=== PATIENT | male | born 1990 | race American Indian/Alaskan Native ===

== ENCOUNTER 2018-08-27 23:23 | Emergency (ER) | payer SELFPAY ==
[2018-08-27 23:29] VITALS: BP 136/86
--- NOTE | 2018-08-28 00:04 | XRay Report ---
LEFT TIBIA-FIBULA 4 VIEWS INDICATION / CLINICAL INFORMATION: Left greer pain for one week. No known injury. COMPARISON: None available. FINDINGS: BONES and JOINT(S): No acute fracture or subluxation. No significant arthritis. SOFT TISSUES: No significant abnormality. ADDITIONAL FINDINGS: None. IMPRESSION: No acute findings. Signer Name: Willian Angulo MD Signed: 08/28/2018 12:00 AM Workstation Name: [id number]
[2018-08-28] MEDS ORDERED: ULTRAM PO ONE (00:25)
--- NOTE | 2018-08-28 00:59 | Emergency Department Report ---
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 pt remains ambulatory to base line per patient, pain is 5/10 exacerbated by prolonged standing walking Complaint: leg injury Onset/Timin -: week(s) Injury: Leg: Left Type of Injury: unknown Place: work Severity: moderate Severity scale (0 -10): 5 Improves With: nothing Worsens With: weight bearing, movement, palpation Associated Symptoms: swelling, ambulatory - Related Data Previous Rx's Medication Instructions Recorded Last Taken Type Amoxicillin 500 mg PO BID #20 capsule 02/05/18 Unknown Rx predniSONE [Deltasone] 20 mg PO DAILY #5 tablet 02/05/18 Unknown Rx Naproxen [Naprosyn] 500 mg PO BID PRN #30 tablet 08/28/18 Unknown Rx Allergies Allergy/AdvReac Type Severity Reaction Status Date / Time blueberry [Blueberry] Allergy Hives Verified 01/02/13 13:21 mushroom Allergy Hives Verified 02/05/18 12:55 pineapple [Pineapple] Allergy Hives Verified 01/02/13 13:21 raspberry [Raspberry] Allergy Hives Verified 01/02/13 13:21 ED Review of Systems ROS: Stated complaint: LT LEG PAIN Other details as noted in HPI Constitutional: denies: chills, fever Eyes: denies: eye pain, eye discharge, vision change ENT: denies: ear pain, throat pain Respiratory: denies: cough, shortness of breath, wheezing Cardiovascular: denies: chest pain, palpitations Endocrine: no symptoms reported Gastrointestinal: denies: abdominal pain, nausea, diarrhea Genitourinary: denies: urgency, dysuria Musculoskeletal: other (LLE pain ) Skin: denies: rash, lesions Neurological: denies: headache, weakness, paresthesias Psychiatric: denies: anxiety, depression Hematological/Lymphatic: denies: easy bleeding, easy bruising ED Past Medical Hx - Past Medical History Previous Medical History?: Yes Hx Hypertension: No Hx CVA: No Hx Heart Attack/AMI: No Hx Congestive Heart Failure: No Hx Diabetes: No Hx Deep Vein Thrombosis: No Hx Pulmonary Embolism: No Hx GERD: No Hx Liver Disease: No Hx Renal Disease: No Hx Sickle Cell Disease: No Hx Arthritis: No Hx Headaches / Migraines: No Hx Seizures: No Hx Kidney Stones: No Hx Psychiatric Treatment: No Hx Asthma: Yes Hx COPD: No Hx Tuberculosis: No Hx Dementia: No Hx HIV: No Additional medical history: Sinus Infections - Surgical History Past Surgical History?: No Hx Coronary Stent: No Hx Open Heart Surgery: No Hx Pacemaker: No Hx Internal Defibrillator: No Hx Cholecystectomy: No Hx Appendectomy: No Hx Breast Surgery: No - Social History Smoking Status: Current Every Day Smoker Substance Use Type: Alcohol - Medications Home Medications: Home Medications Medication Instructions Recorded Confirmed Last Taken Type Amoxicillin 500 mg PO BID #20 capsule 02/05/18 Unknown Rx predniSONE [Deltasone] 20 mg PO DAILY #5 tablet 02/05/18 Unknown Rx Naproxen [Naprosyn] 500 mg PO BID PRN #30 tablet 08/28/18 Unknown Rx ED Physical Exam - General Limitations: No Limitations General appearance: alert, in no apparent distress - Head Head exam: Present: atraumatic, normocephalic - Eye Eye exam: Present: normal appearance, PERRL, EOMI Pupils: Present: normal accommodation - ENT ENT exam: Present: normal orophraynx, mucous membranes moist, TM's normal bilaterally, normal external ear exam - Neck Neck exam: Present: normal inspection, full ROM, lymphadenopathy. Absent: tenderness, meningismus - Respiratory Respiratory exam: Present: normal lung sounds bilaterally. Absent: respiratory distress, wheezes - Cardiovascular Cardiovascular Exam: Present: regular rate, normal rhythm, normal heart sounds. Absent: systolic murmur, diastolic murmur, rubs, gallop - GI/Abdominal GI/Abdominal exam: Present: soft, normal bowel sounds. Absent: distended, tenderness, bruit, hernia - Rectal Rectal exam: Present: deferred - Extremities Exam Extremities exam: Present: normal inspection, full ROM, tenderness (left lateral anterior tib fib tenderness midshaft ), normal capillary refill. Absent: pedal edema, joint swelling, calf tenderness - Expanded Lower Extremity Exam Left Lower Leg exam: Present: tenderness. Absent: swelling, abrasion, laceration, ecchymosis, deformity, crepidus, dislocation, erythema, palpable cord, Precious's sign Ankle exam: Present: normal inspection, full ROM. Absent: tenderness Foot/Toe exam: Present: normal inspection, full ROM. Absent: tenderness Neuro vascular tendon exam: Absent: pulse deficit, motor deficit, sensory deficit, tendon deficit Gait: Positive: observed and normal - Back Exam Back exam: Present: normal inspection, full ROM. Absent: tenderness, CVA tenderness (R), CVA tenderness (L), muscle spasm, paraspinal tenderness, vertebral tenderness, rash noted - Neurological Exam Neurological exam: Present: alert, oriented X3, CN II-XII intact, normal gait, reflexes normal. Absent: motor sensory deficit - Psychiatric Psychiatric exam: Present: normal affect, normal mood - Skin Skin exam: Present: warm, dry, intact, normal color. Absent: rash ED Course Vital Signs 08/27/18 23:23 Temperature 98 F Pulse Rate 90 Respiratory 18 Rate Blood Pressure 136/86 O2 Sat by Pulse 97 Oximetry ED Lower Extremity MDM - Radiology Data Radiology results: report reviewed, image reviewed normal xray no fracture or soft tissue abnormality - Medical Decision Making this is musculoskeletal pain no abrasion swelling or deformity rom intact no calf tenderness rom intact plan : nsaids , analgesic balm rice therapy follow up wtih pcp in 2-3 days return to ed if symptoms worsen, pt verbalized agreement and understanding with discharge plan will dc to home in stable condition at this time. Critical care attestation.: If time is entered above; I have spent that time in minutes in the direct care of this critically ill patient, excluding procedure time. ED Disposition Clinical Impression: Muscle strain, lower leg Qualifiers: Encounter type: initial encounter Laterality: left Qualified Code(s): S86.912A - Strain of unspecified muscle(s) and tendon(s) at lower leg level, left leg, initial encounter Disposition: DC-01 TO HOME OR SELFCARE Is pt being admited?: No Does the pt Need Aspirin: No Condition: Stable Instructions: Muscle Strain (ED) Prescriptions: Naproxen [Naprosyn] 500 mg PO BID PRN #30 tablet PRN Reason: Pain , Severe (7-10) Referrals: PRIMARY CARE,MD [Primary Care Provider] - 3-5 Days Forms: Work/School Release Form(ED) Time of Disposition: 01:07
== END 2018-08-28 01:15 | disposition home or self-care (01) ==
LOC: ED 23:23
DX: S86.912A Strain of unspecified muscle(s) and tendon(s) at lower leg level, left leg, initial encounter (principal); J45.909 Unspecified asthma, uncomplicated; Z91.018 Allergy to other foods; X50.1XXA Overexertion from prolonged static or awkward postures, initial encounter; Y93.89 Activity, other specified; Y92.89 Other specified places as the place of occurrence of the external cause; Y99.8 Other external cause status
CPT/HCPCS: 99283

== ENCOUNTER 2018-10-30 21:22 | Emergency (ER) | payer SELFPAY ==
[2018-10-30 22:08] VITALS: BP 126/86
--- NOTE | 2018-10-30 22:08 | Event Note ---
ED Screening Note Date of service: 10/30/18 Time: 22:06 ED Screening Note: 28 old male presents with right knee pain and swelling x 2 days states hx of abscess/cellulitis no fever This initial assessment/diagnostic orders/clinical plan/treatment(s) is/are subject to change based on patients health status, clinical progression and re- assessment by fellow clinical providers in the ED. Further treatment and workup at subsequent clinical providers discretion. Patient/guardian urged not to elope from the ED as their condition may be serious if not clinically assessed and managed. Initial orders include: acc eval I&D?
--- NOTE | 2018-10-30 23:10 | Emergency Department Report ---
- General Chief complaint: Skin/Abscess/Foreign Body Stated complaint: KNOT ON KNEE Time Seen by Provider: 10/30/18 22:05 Source: patient Mode of arrival: Ambulatory Limitations: No Limitations - History of Present Illness Initial comments: Patient is a 28-year-old male who presents to emergency room with complaints of a lump on his right knee that began this morning. The patient states he has associated redness, pain. He states he saw a very small amount of pus. He denies any fever, chills, nausea, vomiting, any other symptoms. He is ambulatory without difficulty. He states he has a past medical history of staph infection. he denies any allergies to meds. - Related Data Previous Rx's Medication Instructions Recorded Last Taken Type Amoxicillin 500 mg PO BID #20 capsule 02/05/18 Unknown Rx predniSONE [Deltasone] 20 mg PO DAILY #5 tablet 02/05/18 Unknown Rx Naproxen [Naprosyn] 500 mg PO BID PRN #30 tablet 08/28/18 Unknown Rx Acetaminophen/Codeine [Tylenol 1 tab PO Q6H PRN #7 tab 10/30/18 Unknown Rx /Codeine # 3 tab] Ibuprofen [Motrin 600 MG tab] 600 mg PO Q8H PRN #14 tablet 10/30/18 Unknown Rx Sulfamethoxazole/Trimethoprim 1 each PO BID 7 Days #14 tablet 10/30/18 Unknown Rx [Bactrim DS TAB] Allergies Allergy/AdvReac Type Severity Reaction Status Date / Time blueberry [Blueberry] Allergy Hives Verified 01/02/13 13:21 mushroom Allergy Hives Verified 02/05/18 12:55 pineapple [Pineapple] Allergy Hives Verified 01/02/13 13:21 raspberry [Raspberry] Allergy Hives Verified 01/02/13 13:21 Abscess Boil HPI - HPI Chief Complaint: Skin/Abscess/Foreign Body Stated Complaint: KNOT ON KNEE Time Seen by Provider: 10/30/18 22:05 Home Medications: Previous Rx's Medication Instructions Recorded Last Taken Type Amoxicillin 500 mg PO BID #20 capsule 02/05/18 Unknown Rx predniSONE [Deltasone] 20 mg PO DAILY #5 tablet 02/05/18 Unknown Rx Naproxen [Naprosyn] 500 mg PO BID PRN #30 tablet 08/28/18 Unknown Rx Acetaminophen/Codeine [Tylenol 1 tab PO Q6H PRN #7 tab 10/30/18 Unknown Rx /Codeine # 3 tab] Ibuprofen [Motrin 600 MG tab] 600 mg PO Q8H PRN #14 tablet 10/30/18 Unknown Rx Sulfamethoxazole/Trimethoprim 1 each PO BID 7 Days #14 tablet 10/30/18 Unknown Rx [Bactrim DS TAB] Allergies/Adverse Reactions: Allergies Allergy/AdvReac Type Severity Reaction Status Date / Time blueberry [Blueberry] Allergy Hives Verified 01/02/13 13:21 mushroom Allergy Hives Verified 02/05/18 12:55 pineapple [Pineapple] Allergy Hives Verified 01/02/13 13:21 raspberry [Raspberry] Allergy Hives Verified 01/02/13 13:21 ED Review of Systems ROS: Stated complaint: KNOT ON KNEE Other details as noted in HPI Comment: All other systems reviewed and negative ED Past Medical Hx - Past Medical History Previous Medical History?: Yes Hx Hypertension: No Hx CVA: No Hx Heart Attack/AMI: No Hx Congestive Heart Failure: No Hx Diabetes: No Hx Deep Vein Thrombosis: No Hx Pulmonary Embolism: No Hx GERD: No Hx Liver Disease: No Hx Renal Disease: No Hx Sickle Cell Disease: No Hx Arthritis: No Hx Headaches / Migraines: No Hx Seizures: No Hx Kidney Stones: No Hx Psychiatric Treatment: No Hx Asthma: Yes Hx COPD: No Hx Tuberculosis: No Hx Dementia: No Hx HIV: No Additional medical history: Sinus Infections - Surgical History Hx Coronary Stent: No Hx Open Heart Surgery: No Hx Pacemaker: No Hx Internal Defibrillator: No Hx Cholecystectomy: No Hx Appendectomy: No Hx Breast Surgery: No - Social History Smoking Status: Current Every Day Smoker Substance Use Type: None - Medications Home Medications: Home Medications Medication Instructions Recorded Confirmed Last Taken Type Amoxicillin 500 mg PO BID #20 capsule 02/05/18 Unknown Rx predniSONE [Deltasone] 20 mg PO DAILY #5 tablet 02/05/18 Unknown Rx Naproxen [Naprosyn] 500 mg PO BID PRN #30 tablet 08/28/18 Unknown Rx Acetaminophen/Codeine [Tylenol 1 tab PO Q6H PRN #7 tab 10/30/18 Unknown Rx /Codeine # 3 tab] Ibuprofen [Motrin 600 MG tab] 600 mg PO Q8H PRN #14 tablet 10/30/18 Unknown Rx Sulfamethoxazole/Trimethoprim 1 each PO BID 7 Days #14 tablet 10/30/18 Unknown Rx [Bactrim DS TAB] ED Physical Exam - General Limitations: No Limitations General appearance: alert, in no apparent distress - Head Head exam: Present: atraumatic, normocephalic - Eye Eye exam: Present: normal appearance - ENT ENT exam: Present: mucous membranes moist - Neurological Exam Neurological exam: Present: alert, oriented X3 - Psychiatric Psychiatric exam: Present: normal affect, normal mood - Skin Skin exam: Present: warm, dry, other (2 cm area of induration, erythema, and mi ld increased warmth, no fluctuance, no drainage, no drainage expressed with manual expression, FROM of the right knee without difficulty, no involvement of the knee, 2+ distal pulses, sensation intact) ED Course Vital Signs 10/30/18 22:06 Temperature 98.3 F Pulse Rate 90 Respiratory 18 Rate Blood Pressure 126/86 O2 Sat by Pulse 98 Oximetry ED Medical Decision Making - Medical Decision Making Patient is a 28-year-old male who presents to emergency room with complaints of a lump on his right knee that began this morning. The patient states he has associated redness, pain. He states he saw a very small amount of pus. He denies any fever, chills, nausea, vomiting, any other symptoms. He is ambulatory without difficulty. He states he has a past medical history of staph infection. he denies any allergies to meds. vitals are normal. on exam: 2 cm area of induration, erythema, and mild increased warmth, no fluctuance, no drainage, no drainage expressed with manual expression, FROM of the right knee without difficulty, no involvement of the knee, 2+ distal pulses, sensation intact. no drainable abscess at this time. Will place patient on Bactrim. Advised patient that if antibiotic is not working and it was getting worse then he would need to return to the emergency room to have an I&D performed. Discussed the patient to please take medication as prescribed. Do not drive or operate heavy machinery while taking pain medication. Use warm compresses 3 times a day. Follow up with a primary care doctor in the next 2-3 days for reevaluation. Return to the emergency room for any new or worsening symptoms or worsening signs of infection despite antibiotic therapy. - Differential Diagnosis cellulitis, abscess Critical care attestation.: If time is entered above; I have spent that time in minutes in the direct care of this critically ill patient, excluding procedure time. ED Disposition Clinical Impression: Cellulitis Qualifiers: Site of cellulitis: extremity Site of cellulitis of extremity: lower extremity Laterality: right Qualified Code(s): L03.115 - Cellulitis of right lower limb Disposition: - TO HOME OR SELFCARE Is pt being admited?: No Does the pt Need Aspirin: No Condition: Stable Instructions: Cellulitis (ED) Additional Instructions: please take medication as prescribed. Do not drive or operate heavy machinery while taking pain medication. Use warm compresses 3 times a day. Follow up with a primary care doctor in the next 2-3 days for reevaluation. Return to the emergency room for any new or worsening symptoms or worsening signs of infection despite antibiotic therapy. Prescriptions: Sulfamethoxazole/Trimethoprim [Bactrim DS TAB] 1 each PO BID 7 Days #14 tablet Ibuprofen [Motrin 600 MG tab] 600 mg PO Q8H PRN #14 tablet PRN Reason: Pain, Moderate (4-6) Acetaminophen/Codeine [Tylenol /Codeine # 3 tab] 1 tab PO Q6H PRN #7 tab PRN Reason: Pain , Severe (7-10) Referrals: [facility] [Provider Group] - 2-3 Days Time of Disposition: 23:19 Print Language: SINHALA
== END 2018-10-30 23:40 | disposition home or self-care (01) ==
LOC: ED 21:22
DX: L03.115 Cellulitis of right lower limb (principal); J45.909 Unspecified asthma, uncomplicated; F17.200 Nicotine dependence, unspecified, uncomplicated; Z91.018 Allergy to other foods
CPT/HCPCS: 99282

== ENCOUNTER 2018-11-04 18:27 | Emergency (ER) | payer SELFPAY ==
[2018-11-04 20:24] VITALS: BP 129/87
--- NOTE | 2018-11-04 20:27 | Event Note ---
ED Screening Note Date of service: 11/04/18 Time: 20:20 ED Screening Note: This initial assessment/diagnostic orders/clinical plan/treatment(s) is/are subject to change based on patients health status, clinical progression and re- assessment by fellow clinical providers in the ED. Further treatment and workup at subsequent clinical providers discretion. Patient/guardian urged not to elope from the ED as their condition may be serious if not clinically assessed and managed. Initial orders include:
--- NOTE | 2018-11-04 20:32 | Emergency Department Report ---
Abscess Boil HPI - HPI Chief Complaint: Extremity Problem,Nontraumatic Stated Complaint: RT KNEE HOLE/PAIN Time Seen by Provider: 11/04/18 20:20 Duration: 4 Days Location: Lower Extremity (right) Severity: Mild History: Yes Pain, Yes Purulent Drainage, No Fever, No Numbness, No Foreign Body, No Previous History, No Insect Bite HPI: This is a 28-year-old M. that presents to the ER with an abscess to right knee pain for 4 days. Patient states he was seen here last and placed on antibiotics. Reports drainage started today. Reports pain and increased drainage. Denies redness, Home Medications: Previous Rx's Medication Instructions Recorded Last Taken Type Amoxicillin 500 mg PO BID #20 capsule 02/05/18 Unknown Rx predniSONE [Deltasone] 20 mg PO DAILY #5 tablet 02/05/18 Unknown Rx Naproxen [Naprosyn] 500 mg PO BID PRN #30 tablet 08/28/18 Unknown Rx Acetaminophen/Codeine [Tylenol 1 tab PO Q6H PRN #7 tab 10/30/18 Unknown Rx /Codeine # 3 tab] Ibuprofen [Motrin 600 MG tab] 600 mg PO Q8H PRN #14 tablet 10/30/18 Unknown Rx Sulfamethoxazole/Trimethoprim 1 each PO BID 7 Days #14 tablet 10/30/18 Unknown Rx [Bactrim DS TAB] Ibuprofen [Motrin 800 MG tab] 800 mg PO Q8HR PRN #15 tablet 11/04/18 Unknown Rx Allergies/Adverse Reactions: Allergies Allergy/AdvReac Type Severity Reaction Status Date / Time blueberry [Blueberry] Allergy Hives Verified 01/02/13 13:21 mushroom Allergy Hives Verified 02/05/18 12:55 pineapple [Pineapple] Allergy Hives Verified 01/02/13 13:21 raspberry [Raspberry] Allergy Hives Verified 01/02/13 13:21 ED Review of Systems ROS: Stated complaint: RT KNEE HOLE/PAIN Other details as noted in HPI Constitutional: denies: chills, fever Respiratory: denies: cough, shortness of breath, wheezing Cardiovascular: denies: chest pain, palpitations Gastrointestinal: denies: abdominal pain, nausea, diarrhea Skin: lesions (bump on right knee, painful and draining). denies: rash Neurological: denies: headache, weakness, paresthesias Psychiatric: denies: anxiety, depression ED Past Medical Hx - Past Medical History Previous Medical History?: Yes Hx Hypertension: No Hx CVA: No Hx Heart Attack/AMI: No Hx Congestive Heart Failure: No Hx Diabetes: No Hx Deep Vein Thrombosis: No Hx Pulmonary Embolism: No Hx GERD: No Hx Liver Disease: No Hx Renal Disease: No Hx Sickle Cell Disease: No Hx Arthritis: No Hx Headaches / Migraines: No Hx Seizures: No Hx Kidney Stones: No Hx Psychiatric Treatment: No Hx Asthma: Yes Hx COPD: No Hx Tuberculosis: No Hx Dementia: No Hx HIV: No Additional medical history: Sinus Infections - Surgical History Past Surgical History?: No Hx Coronary Stent: No Hx Open Heart Surgery: No Hx Pacemaker: No Hx Internal Defibrillator: No Hx Cholecystectomy: No Hx Appendectomy: No Hx Breast Surgery: No - Social History Smoking Status: Never Smoker Substance Use Type: None - Medications Home Medications: Home Medications Medication Instructions Recorded Confirmed Last Taken Type Amoxicillin 500 mg PO BID #20 capsule 02/05/18 Unknown Rx predniSONE [Deltasone] 20 mg PO DAILY #5 tablet 02/05/18 Unknown Rx Naproxen [Naprosyn] 500 mg PO BID PRN #30 tablet 08/28/18 Unknown Rx Acetaminophen/Codeine [Tylenol 1 tab PO Q6H PRN #7 tab 10/30/18 Unknown Rx /Codeine # 3 tab] Ibuprofen [Motrin 600 MG tab] 600 mg PO Q8H PRN #14 tablet 10/30/18 Unknown Rx Sulfamethoxazole/Trimethoprim 1 each PO BID 7 Days #14 tablet 10/30/18 Unknown Rx [Bactrim DS TAB] Ibuprofen [Motrin 800 MG tab] 800 mg PO Q8HR PRN #15 tablet 11/04/18 Unknown Rx ED Abscess Boil Physical Exam - Exam General: Vital signs noted. No distress. Alert and acting appropriately. Front/Back of Body, Lg (Color): 1 - 1 cm indurated area, purulent drainage, tenderness, no surrounding cellulitis Size: 1 cm Exam: Yes Tenderness, Yes Normal Neurologic Exam, Yes Normal Circulation, No Fluctuance, No Surrounding Cellulites/Erythema, No Lymphangitis, No Crepitation, No Heart Murmur ED Course Vital Signs 11/04/18 20:23 Temperature 98.1 F Pulse Rate 86 Respiratory 18 Rate Blood Pressure 129/87 O2 Sat by Pulse 99 Oximetry Critical care attestation.: If time is entered above; I have spent that time in minutes in the direct care of this critically ill patient, excluding procedure time. ED Medical Decision Making - Medical Decision Making Patient is stable and examined by me. No history of prior abscess. Physical assessment of 2 cm erythematous indurated area to the right patella with purulent drainage. No acute signs of distress noted. Given NSAIDs while in the ER. At this time I&D not indicated. Instructed to continue current antibiotics prescribed on prior visit. Start ibuprofen for pain. Educated patient and spouse on follow up plan to have wound reassessed in 2-3 days with a primary care doctor. Patient agrees to ED plan of care. Discharged home and follow up with PCP in 2-3 days. ED Disposition Clinical Impression: Abscess Disposition: - TO HOME OR SELFCARE Is pt being admited?: No Does the pt Need Aspirin: No Condition: Stable Instructions: Abscess (ED) Additional Instructions: Complete antibiotics prescribed on last visit and continue taking current pain medication. Clean wound with soap and water. Do not drive or operate heavy machinery while taking pain medication. Drainage will resolve in 3-4 days as wound begin to close. Follow up with a primary care doctor in the next 3-4 days for wound reevaluation. Return to the ER if worsening symptoms. Prescriptions: Ibuprofen [Motrin 800 MG tab] 800 mg PO Q8HR PRN #15 tablet PRN Reason: Pain , Severe (7-10) Referrals: [facility] [Outside] - 3-5 Days [facility] [Outside] - 3-5 Days [facility] [Outside] - 3-5 Days Forms: Work/School Release Form(ED) Time of Disposition: 21:38
== END 2018-11-04 21:47 | disposition home or self-care (01) ==
LOC: ED 18:27
DX: L02.415 Cutaneous abscess of right lower limb (principal); Z91.018 Allergy to other foods
CPT/HCPCS: 99282

== ENCOUNTER 2018-12-07 12:15 | Observation (INO) | payer OTHER ==
--- NOTE | 2018-12-07 12:35 | Event Note ---
ED Screening Note Date of service: 12/07/18 Time: 12:33 ED Screening Note: This is a 28 y.o. M. that presents to the ER with N/V/D for 1 week. This initial assessment/diagnostic orders/clinical plan/treatment(s) is/are subject to change based on patients health status, clinical progression and re- assessment by fellow clinical providers in the ED. Further treatment and workup at subsequent clinical providers discretion. Patient/guardian urged not to elope from the ED as their condition may be serious if not clinically assessed and managed. Initial orders include: Labs
[2018-12-07 13:34] LABS: Eosinophils # (Auto) 0.1 K/mm3 (0.0-0.4); Eosinophils % (Auto) 1.3 % (0.0-4.3); Hematocrit 45.1 % (35.5-45.6); Hemoglobin 14.4 gm/dl (11.8-15.2); Lymphocytes # (Auto) 2.3 K/mm3 (1.2-5.4); Lymphocytes % (Auto) 34.7 % (13.4-35.0); Mean Corpuscular HGB Conc 32 % (32-34); Mean Corpuscular Volume 72 fl (84-94); Monocytes # (Auto) 0.8 K/mm3 (0.0-0.8); Monocytes % (Auto) 11.7 % (0.0-7.3); Platelet Count 290 K/mm3 (140-440); Red Blood Count 6.31 M/mm3 (3.65-5.03); Red Cell Distribution Width 14.5 % (13.2-15.2)
[2018-12-07 13:38] LABS: Alanine Aminotransferase 27 units/L (7-56); Albumin 4.8 g/dL (3.9-5); BUN/Creatinine Ratio 7; Blood Urea Nitrogen 7 mg/dL (9-20); Calcium 9.3 mg/dL (8.4-10.2); Hemolysis Index 11
[2018-12-07 14:08] LABS: Bilirubin,Urine NEG (Negative); Blood,Urine NEG (Negative); Color,Urine Yellow (Yellow); Mucus,Urine 2+ /HPF; WBC,Urine < 1.0 /HPF (0.0-6.0)
[2018-12-07] MEDS ORDERED: LACTATED RINGERS 1,000 ML IV ONE (15:16)
[2018-12-07] MEDS ORDERED: HYOSCYAMINE SUBL 0.125 MG TAB SL ONE (15:16)
[2018-12-07] MEDS ORDERED: ONDANSETRON 4 MG/2 ML INJ IV ONE (15:16)
--- NOTE | 2018-12-07 15:43 | Emergency Department Report ---
ED N/V/D HPI - General Chief complaint: Nausea/Vomiting/Diarrhea Stated complaint: VOMIT/DIARRHEA/STOMACH PAIN Time Seen by Provider: 12/07/18 12:33 Source: patient Mode of arrival: Ambulatory Limitations: No Limitations - History of Present Illness Initial comments: Pt reports n/v/d x 1 week, with 3 episodes of vomiting daily but innumerable episodes of diarrhea Some associated abdominal pain, no fever. Finished a course of Bactrim about 5 weeks ago for [facility]. MD complaint: nausea, vomiting, diarrhea, abdominal pain -: Gradual, week(s) (1) Description of Vomiting: food contents, watery Description of Diarrhea: water Associated Abdominal Pain: Yes Location: diffuse Radiation: none Severity: moderate Pain Scale: 4 Quality: cramping Consistency: intermittent Improves with: none Worsens with: eating Context: recent anitbiotic use Associated Symptoms: denies other symptoms - Related Data Previous Rx's Medication Instructions Recorded Last Taken Type Amoxicillin 500 mg PO BID #20 capsule 02/05/18 Unknown Rx predniSONE [Deltasone] 20 mg PO DAILY #5 tablet 02/05/18 Unknown Rx Naproxen [Naprosyn] 500 mg PO BID PRN #30 tablet 08/28/18 Unknown Rx Acetaminophen/Codeine [Tylenol 1 tab PO Q6H PRN #7 tab 10/30/18 Unknown Rx /Codeine # 3 tab] Ibuprofen [Motrin 600 MG tab] 600 mg PO Q8H PRN #14 tablet 10/30/18 Unknown Rx Sulfamethoxazole/Trimethoprim 1 each PO BID 7 Days #14 tablet 10/30/18 Unknown Rx [Bactrim DS TAB] Ibuprofen [Motrin 800 MG tab] 800 mg PO Q8HR PRN #15 tablet 11/04/18 Unknown Rx Allergies Allergy/AdvReac Type Severity Reaction Status Date / Time blueberry [Blueberry] Allergy Hives Verified 01/02/13 13:21 mushroom Allergy Hives Verified 02/05/18 12:55 pineapple [Pineapple] Allergy Hives Verified 01/02/13 13:21 raspberry [Raspberry] Allergy Hives Verified 01/02/13 13:21 ED Review of Systems ROS: Stated complaint: VOMIT/DIARRHEA/STOMACH PAIN Other details as noted in HPI Comment: All other systems reviewed and negative Gastrointestinal: as per HPI ED Past Medical Hx - Past Medical History Previous Medical History?: Yes Hx Hypertension: No Hx CVA: No Hx Heart Attack/AMI: No Hx Congestive Heart Failure: No Hx Diabetes: No Hx Deep Vein Thrombosis: No Hx Pulmonary Embolism: No Hx GERD: No Hx Liver Disease: No Hx Renal Disease: No Hx Sickle Cell Disease: No Hx Arthritis: No Hx Headaches / Migraines: No Hx Seizures: No Hx Kidney Stones: No Hx Psychiatric Treatment: No Hx Asthma: Yes Hx COPD: No Hx Tuberculosis: No Hx Dementia: No Hx HIV: No Additional medical history: Sinus Infections - Surgical History Past Surgical History?: No Hx Coronary Stent: No Hx Open Heart Surgery: No Hx Pacemaker: No Hx Internal Defibrillator: No Hx Cholecystectomy: No Hx Appendectomy: No Hx Breast Surgery: No - Social History Smoking Status: Never Smoker Substance Use Type: None - Medications Home Medications: Home Medications Medication Instructions Recorded Confirmed Last Taken Type Amoxicillin 500 mg PO BID #20 capsule 02/05/18 Unknown Rx predniSONE [Deltasone] 20 mg PO DAILY #5 tablet 02/05/18 Unknown Rx Naproxen [Naprosyn] 500 mg PO BID PRN #30 tablet 08/28/18 Unknown Rx Acetaminophen/Codeine [Tylenol 1 tab PO Q6H PRN #7 tab 10/30/18 Unknown Rx /Codeine # 3 tab] Ibuprofen [Motrin 600 MG tab] 600 mg PO Q8H PRN #14 tablet 10/30/18 Unknown Rx Sulfamethoxazole/Trimethoprim 1 each PO BID 7 Days #14 tablet 10/30/18 Unknown Rx [Bactrim DS TAB] Ibuprofen [Motrin 800 MG tab] 800 mg PO Q8HR PRN #15 tablet 11/04/18 Unknown Rx ED Physical Exam - General Limitations: No Limitations General appearance: alert, in no apparent distress - Head Head exam: Present: atraumatic, normocephalic - Eye Eye exam: Present: normal appearance, PERRL, EOMI - ENT ENT exam: Present: mucous membranes dry - Neck Neck exam: Present: normal inspection. Absent: meningismus - Respiratory Respiratory exam: Present: normal lung sounds bilaterally. Absent: respiratory distress - Cardiovascular Cardiovascular Exam: Present: regular rate, normal rhythm. Absent: systolic murmur, diastolic murmur, rubs, gallop - GI/Abdominal GI/Abdominal exam: Present: soft, tenderness (diffusely ), normal bowel sounds. Absent: guarding, rebound, rigid - Rectal Rectal exam: Present: deferred - Extremities Exam Extremities exam: Present: normal inspection - Back Exam Back exam: Present: normal inspection - Neurological Exam Neurological exam: Present: alert, oriented X3 - Psychiatric Psychiatric exam: Present: normal affect, normal mood - Skin Skin exam: Present: warm, dry, intact, normal color. Absent: rash ED Course Vital Signs 12/07/18 12:33 Temperature 98.3 F Pulse Rate 73 Respiratory 16 Rate Blood Pressure 125/78 [Left] O2 Sat by Pulse 97 Oximetry ED Medical Decision Making - Lab Data Result diagrams: 12/07/18 13:00 12/07/18 13:00 - Radiology Data Radiology results: report reviewed mildly prominent appendix, fluid filled, 8 mm, w/o pericecal inflammatory change prominent lymph nodes in RLQ - Medical Decision Making Pt with ongoing n/v/d, but primarily diarrhea, with intermittent abdominal pain x 1 week. Exam with diffuse tenderness Labs, CT pending Given IVF, zofran, levsin CT with mildly prominent appendix, fluid filled, w/o inflammatory change also with RLQ lymph nodes prominent Presentation seems atypical for appendicitis. I discussed w/ Dr. Delacruz, surgery, who would like [facility] to admit the patient for overnight observation for serial exams and repeat evaluation in AM. I advised patient of this, agrees to admission. Spoke with Dr. Turner, he will admit. - Differential Diagnosis colitis, mesenteric adenitis, appendicitis less likely Critical care attestation.: If time is entered above; I have spent that time in minutes in the direct care of this critically ill patient, excluding procedure time. ED Disposition Clinical Impression: Nausea vomiting and diarrhea Abdominal pain Qualifiers: Abdominal location: generalized Qualified Code(s): R10.84 - Generalized abdominal pain Disposition: OP ADMIT IP TO THIS HOSP Is pt being admited?: Yes Condition: Stable Referrals: PRIMARY CARE, [Primary Care Provider] - 3-5 Days Time of Disposition: 18:46
--- NOTE | 2018-12-07 18:18 | Cat Scan Report ---
CT ABDOMEN AND PELVIS WITH IV CONTRAST, 12/07/2018 INDICATION: Generalized abdominal pain, nausea and vomiting for 3 days. TECHNIQUE: Following the administration of intravenous contrast, multiple axial CT images of the abdo men and pelvis were acquired. Sagittal and coronal reformats were obtained. All CT performed at this facility utilize dose reduction techniques including automated exposure control, iterative reconstru ction and weight based dosing when appropriate to reduce patient radiation dose to as low as reasonab ly achievable. COMPARISON: None FINDINGS: Limited imaging of the bilateral lung bases demonstrate no acute abnormality. Abdomen: The liver, spleen, gallbladder, pancreas, bilateral adrenal glands and bilateral kidneys maddi w no evidence of acute abnormality. There is no evidence of bowel obstruction. There are multiple pro minent mesenteric lymph nodes in the right lower quadrant, the largest of which measures 1 cm in shor t axis. The appendix is fluid-filled and mildly prominent in caliber, measuring a maximum of 8 mm. No pericecal inflammatory changes are clearly visualized. Pelvis: No free fluid is seen within the pelvis. The urinary bladder appears normal. Evaluation of bony structures show no evidence of acute bony abnormality. IMPRESSION: 1. Mildly prominent fluid-filled appendix as described making it difficult to exclude the possibility of mild or early appendicitis in this patient with abdominal pain. Please correlate with patient's c linical presentation. 2. Multiple prominent right lower quadrant lymph nodes. Etiology and clinical significance of these i s indeterminant. Signer Name: Laney Reyes MD Signed: 12/07/2018 6:13 PM Workstation Name: [id number]
[2018-12-07] MEDS ORDERED: ACETAMINOPHEN W/CODEINE 300-30 MG TAB PO PRN (18:49)
--- NOTE | 2018-12-07 18:54 | History and Physical Report ---
History of Present Illness Chief complaint: My stomach hurts History of present illness: 28 YO Male with nicotine Dependence, Asthma, Seasonal Allergies presents to ED for evaluation. Pt states that he has experienced nausea, multiple episodes of vomiting daily, and innumerable loose stools over the past 1 week with worsening and persistent symptoms over the past 2 days. Pt reports abdominal pain. Pain is 4/20, diffuse, crampy, nonradiating, worsened with meals. Pt transported to [facility] via private vehicle. Pt seen and evaluated in ED and found to have symptoms consistent with Gastroenteritis. Pt denies fever, chills, CP, Palpitations, Trauma, Ingestion of Food/Water from new or different sources, known ill cont acts. Pt placed in observation status and admitted to surgical floor. Surgery team consulted. No prior admission for review. All medication listed has been reconciled at time of admission. Past History Past Medical History: other (see hpi) Past Surgical History: No surgical history, Other (reviewed) Social history: , lives with family, smoking Family history: hypertension Medications and Allergies Allergies Allergy/AdvReac Type Severity Reaction Status Date / Time blueberry [Blueberry] Allergy Hives Verified 01/02/13 13:21 mushroom Allergy Hives Verified 02/05/18 12:55 pineapple [Pineapple] Allergy Hives Verified 01/02/13 13:21 raspberry [Raspberry] Allergy Hives Verified 01/02/13 13:21 Home Medications Medication Instructions Recorded Confirmed Last Taken Type Amoxicillin 500 mg PO BID #20 capsule 02/05/18 Unknown Rx predniSONE [Deltasone] 20 mg PO DAILY #5 tablet 02/05/18 Unknown Rx Naproxen [Naprosyn] 500 mg PO BID PRN #30 tablet 08/28/18 Unknown Rx Acetaminophen/Codeine [Tylenol 1 tab PO Q6H PRN #7 tab 10/30/18 Unknown Rx /Codeine # 3 tab] Ibuprofen [Motrin 600 MG tab] 600 mg PO Q8H PRN #14 tablet 10/30/18 Unknown Rx Sulfamethoxazole/Trimethoprim 1 each PO BID 7 Days #14 tablet 10/30/18 Unknown Rx [Bactrim DS TAB] Ibuprofen [Motrin 800 MG tab] 800 mg PO Q8HR PRN #15 tablet 11/04/18 Unknown Rx Active Meds: Active Medications Acetaminophen/Codeine Phosphate (Tylenol #3) 1 tab PO Q6H PRN PRN Reason: Pain , Severe (7-10) Review of Systems Constitutional: no weight loss, no weight gain, no fever, no chills Ears, nose, mouth and throat: no ear pain, no tinnitis, no decreased hearing, no nose pain, no nasal congestion, no nasal discharge Cardiovascular: no chest pain, no orthopnea, no palpitations, no syncope Respiratory: no cough, no cough with sputum, no shortness of breath Gastrointestinal: abdominal pain, nausea, vomiting, diarrhea, no constipation, no hematemesis, no coffee ground emesis, no BRBPR, no melena, no hematochezia, no loss of appetite, no early satiety, no heartburn Genitourinary Male: no dysuria, no hematuria, no flank pain, no discharge, no urinary frequency, no urinary hesitancy Rectal: no pain, no incontinence, no bleeding Musculoskeletal: no neck stiffness, no neck pain, no shooting arm pain, no low back pain, no leg numbness/tingling Integumentary: no rash, no pruritis, no redness, no sores, no wounds Neurological: no paralysis, no weakness, no parathesias, no numbness, no tingling Psychiatric: no memory loss, no change in sleep habits, no sleep disturbances, no insomnia, no hypersomnia, no change in appetite, no change in libido, no suicidal ideation Endocrine: no cold intolerance, no heat intolerance, no polyphagia, no excessive thirst, no polyuria, no nocturia Hematologic/Lymphatic: no easy bruising, no easy bleeding, no lymphadenopathy, no lymphedema Allergic/Immunologic: no urticaria, no allergic rhinitis, no persistent infections, no anaphylaxis, no angioedema Exam - Constitutional Vitals: Temp Pulse Resp BP Pulse Ox 98.3 F 73 16 125/78 97 12/07/18 12:33 12/07/18 12:33 12/07/18 12:33 12/07/18 12:33 12/07/18 12:33 General appearance: Present: mild distress, disheveled - EENT Eyes: Present: PERRL ENT: hearing intact, clear oral mucosa - Neck Neck: Present: supple, normal ROM - Respiratory Respiratory effort: normal Respiratory: bilateral: CTA - Cardiovascular Heart Sounds: Present: S1 & S2. Absent: rub, click - Extremities Extremities: pulses symmetrical, No edema Peripheral Pulses: within normal limits - Abdominal General gastrointestinal: Present: soft, non-tender, non-distended, normal bowel sounds Male genitourinary: Present: normal - Integumentary Integumentary: Present: clear, warm, dry - Musculoskeletal Musculoskeletal: gait normal, strength equal bilaterally - Psychiatric Psychiatric: appropriate mood/affect, intact judgment & insight - Neurologic Neurologic: CNII-XII intact, moves all extremities Results - Labs CBC & Chem 7: 12/07/18 13:00 12/07/18 13:00 Labs: Abnormal lab results 12/07/18 12/07/18 Range/Units 13:00 13:00 RBC 6.31 H (3.65-5.03) M/mm3 MCV 72 L (84-94) fl MCH 23 L (28-32) pg [place] % (Auto) 11.7 H (0.0-7.3) % BUN 7 L (9-20) mg/dL Total Protein 8.4 H (6.3-8.2) g/dL Assessment and Plan - Patient Problems (1) Gastroenteritis Current Visit: Yes Status: Acute Plan to address problem: IVF resuscitation therapy, bowel rest, serial lactic acid level, Surgery consulted in ED, serial abdominal exam, CT Abdomen/pelvis, Rapid HIV, (2) Nicotine dependence Current Visit: Yes Status: Acute Qualifiers: Substance use status: in withdrawal Plan to address problem: +15min smoking cessation counseling, supportive care. (3) DVT prophylaxis Current Visit: Yes Status: Acute Plan to address problem: SCD to BLE while in bed
[2018-12-07] MEDS ORDERED: ALBUTEROL 2.5 MG/3 ML NEBU IH PRN (19:13)
[2018-12-07] MEDS ORDERED: ACETAMINOPHEN 325 MG TAB PO PRN (19:13)
[2018-12-07] MEDS ORDERED: ONDANSETRON 4 MG/2 ML INJ IV PRN (19:13)
[2018-12-07] MEDS: SODIUM CHLORIDE 0.9% 1000 ML 1,000 ML IV SCH (22:15)
[2018-12-08] MEDS: SODIUM CHLORIDE 0.9% 1000 ML 1,000 ML IV SCH ×2 (05:06→21:38)
--- NOTE | 2018-12-08 09:27 | Progress Note ---
Assessment and Plan Full consult dictated: 28 y/o male c/o diarrhea x [address] "fluid filled appendix". periappendiceal adenopathy. Abd - no localized RLQ tenderess suspect colitis with some mesenteric adenitis rec Keep NPO until diarrhea resolving aggressive IVF hydration stool cults monitor clinically will follow with you History of Present Illness Chief complaint: My stomach hurts History of present illness: 28 YO Male with nicotine Dependence, Asthma, Seasonal Allergies presents to ED for evaluation. Pt states that he has experienced nausea, multiple episodes of vomiting daily, and innumerable loose stools over the past 1 week with worsening and persistent symptoms over the past 2 days. Pt reports abdominal pain. Pain is 4/20, diffuse, crampy, nonradiating, worsened with meals. Pt transported to [facility] via private vehicle. Pt seen and evaluated in ED and found to have symptoms consistent with Gastroenteritis. Pt denies fever, chills, CP, Palpitations, Tra pati, Ingestion of Food/Water from new or different sources, known ill contacts. Pt placed in observation status and admitted to surgical floor. Surgery team consulted. No prior admission for review. All medication listed has been reconciled at time of admission. Past History Past Medical History: other (see hpi) Past Surgical History: No surgical history, Other (reviewed) Social history: , lives with family, smoking Family history: hypertension Selected Entries 12/08/18 07:47 Temperature 98.0 F Pulse Rate 60 Respiratory 18 Rate Blood Pressure 125/76 Laboratory Tests 12/07/18 12/07/18 13:00 13:00 WBC 6.7 Hgb 14.4 Hct 45.1 Sodium 139 Potassium 4.0 Chloride 103.4 Carbon Dioxide 23 BUN 7 L Creatinine 1.0 Objective Vital Signs - 12hr 12/08/18 12/08/18 12/08/18 00:12 04:47 07:47 Temperature 98.2 F 97.8 F 98.0 F Pulse Rate 54 L 62 60 Respiratory 17 17 18 Rate Blood Pressure 110/63 113/73 125/76 O2 Sat by Pulse 98 99 97 Oximetry 12/08/18 09:19 Temperature Pulse Rate Respiratory Rate Blood Pressure O2 Sat by Pulse 100 Oximetry - Labs 12/07/18 13:00 12/07/18 13:00 Diabetes panel 12/07/18 Range/Units 13:00 Sodium 139 (137-145) mmol/L Potassium 4.0 (3.6-5.0) mmol/L Chloride 103.4 (98-107) mmol/L Carbon Dioxide 23 (22-30) mmol/L BUN 7 L (9-20) mg/dL Creatinine 1.0 (0.8-1.5) mg/dL Glucose 90 (75-100) mg/dL Calcium 9.3 (8.4-10.2) mg/dL AST 23 (5-40) units/L ALT 27 (7-56) units/L Alkaline Phosphatase 62 (35-129) units/L Total Protein 8.4 H (6.3-8.2) g/dL Albumin 4.8 (3.9-5) g/dL Calcium panel 12/07/18 Range/Units 13:00 Calcium 9.3 (8.4-10.2) mg/dL Albumin 4.8 (3.9-5) g/dL Pituitary panel 12/07/18 Range/Units 13:00 Sodium 139 (137-145) mmol/L Potassium 4.0 (3.6-5.0) mmol/L Chloride 103.4 (98-107) mmol/L Carbon Dioxide 23 (22-30) mmol/L BUN 7 L (9-20) mg/dL Creatinine 1.0 (0.8-1.5) mg/dL Glucose 90 (75-100) mg/dL Calcium 9.3 (8.4-10.2) mg/dL Adrenal panel 12/07/18 Range/Units 13:00 Sodium 139 (137-145) mmol/L Potassium 4.0 (3.6-5.0) mmol/L Chloride 103.4 (98-107) mmol/L Carbon Dioxide 23 (22-30) mmol/L BUN 7 L (9-20) mg/dL Creatinine 1.0 (0.8-1.5) mg/dL Glucose 90 (75-100) mg/dL Calcium 9.3 (8.4-10.2) mg/dL Total Bilirubin 0.50 (0.1-1.2) mg/dL AST 23 (5-40) units/L ALT 27 (7-56) units/L Alkaline Phosphatase 62 (35-129) units/L Total Protein 8.4 H (6.3-8.2) g/dL Albumin 4.8 (3.9-5) g/dL
[2018-12-08] MEDS ORDERED: MORPHINE 2 MG/1 ML INJ IV PRN (11:49)
--- NOTE | 2018-12-08 11:50 | Progress Note ---
Assessment and Plan Assessment and plan: 28-year-old man who presents to the hospital complaining of diarrhea x10 days. CT showed fluid-filled appendix, general surgery input appreciated, keep n.p.o. until diarrhea improves, suspect colitis with some mesenteric adenitis Continue supportive care, IV fluids pain meds antiemetics -Follow-up stool cultures/studies -Age-appropriate STD screening has been ordered Diagnosis Abdominal pain and diarrhea Colitis with mesenteric adenitis Dehydration dvt ppx early ambulation History Interval history: Review of systems Constitutional: No fevers, no malaise, no joint pains CVS: No chest pain, no orthopnea, no pedal edema GI: Continues to complain of lower abdominal pain and watery diarrhea Respiratory: No shortness of breath, no wheezing, no coughing Hospitalist Physical - Physical exam Narrative exam: General.: Mild distress HEENT: Moist mucous membranes, extraocular muscles intact, no lymphadenopathy Neck: supple Cardiac: S1-S2 heard Lungs: clear to auscultation bilaterally Abdomen: soft , nontender, nondistended, bowel sounds positive Extremities: no edema clubbing or cyanosis Skin: no rash or lesions Neurologic: no gross focal deficits Psych: calm, and cooperative - Constitutional Vitals: Temp Pulse Resp BP Pulse Ox 98.0 F 60 18 125/76 100 12/08/18 07:47 12/08/18 08:00 12/08/18 08:00 12/08/18 07:47 12/08/18 09:19 General appearance: Present: mild distress, disheveled Results - Labs CBC & Chem 7: 12/07/18 13:00 12/07/18 13:00 Labs: Laboratory Last Values WBC 6.7 K/mm3 (4.5-11.0) 12/07/18 13:00 RBC 6.31 M/mm3 (3.65-5.03) H 12/07/18 13:00 Hgb 14.4 gm/dl (11.8-15.2) 12/07/18 13:00 Hct 45.1 % (35.5-45.6) 12/07/18 13:00 MCV 72 fl (84-94) L 12/07/18 13:00 MCH 23 pg (28-32) L 12/07/18 13:00 MCHC 32 % (32-34) 12/07/18 13:00 RDW 14.5 % (13.2-15.2) 12/07/18 13:00 Plt Count 290 K/mm3 (140-440) 12/07/18 13:00 Lymph % (Auto) 34.7 % (13.4-35.0) 12/07/18 13:00 [place] % (Auto) 11.7 % (0.0-7.3) H 12/07/18 13:00 Eos % (Auto) 1.3 % (0.0-4.3) 12/07/18 13:00 Baso % (Auto) [place] 12/07/18 13:00 Lymph # 2.3 K/mm3 (1.2-5.4) 12/07/18 13:00 [place] # 0.8 K/mm3 (0.0-0.8) 12/07/18 13:00 Eos # 0.1 K/mm3 (0.0-0.4) 12/07/18 13:00 Baso # 0.0 K/mm3 (0.0-0.1) 12/07/18 13:00 Seg Neutrophils % 51.8 % (40.0-70.0) 12/07/18 13:00 Seg Neutrophils # 3.5 K/mm3 (1.8-7.7) 12/07/18 13:00 Sodium 139 mmol/L (137-145) 12/07/18 13:00 Potassium 4.0 mmol/L (3.6-5.0) 12/07/18 13:00 Chloride 103.4 mmol/L (98-107) 12/07/18 13:00 Carbon Dioxide 23 mmol/L (22-30) 12/07/18 13:00 Anion Gap 17 mmol/L 12/07/18 13:00 BUN 7 mg/dL (9-20) L 12/07/18 13:00 Creatinine 1.0 mg/dL (0.8-1.5) 12/07/18 13:00 Estimated GFR > 60 ml/min 12/07/18 13:00 BUN/Creatinine Ratio 7 % 12/07/18 13:00 Glucose 90 mg/dL (75-100) 12/07/18 13:00 Lactic Acid 0.70 mmol/L (0.7-2.0) 12/08/18 09:55 Calcium 9.3 mg/dL (8.4-10.2) 12/07/18 13:00 Total Bilirubin 0.50 mg/dL (0.1-1.2) 12/07/18 13:00 AST 23 units/L (5-40) 12/07/18 13:00 ALT 27 units/L (7-56) 12/07/18 13:00 Alkaline Phosphatase 62 units/L (35-129) 12/07/18 13:00 Total Protein 8.4 g/dL (6.3-8.2) H 12/07/18 13:00 Albumin 4.8 g/dL (3.9-5) 12/07/18 13:00 Albumin/Globulin Ratio 1.3 % 12/07/18 13:00 Lipase 28 units/L (13-60) 12/07/18 13:00 Urine Color Yellow (Yellow) 12/07/18 13:52 Urine Turbidity Clear (Clear) 12/07/18 13:52 Urine pH 5.0 (5.0-7.0) 12/07/18 13:52 Ur Specific [place] 1.027 (1.003-1.030) 12/07/18 13:52 Urine Protein 30 mg/dl mg/dL (Negative) 12/07/18 13:52 Urine Glucose (UA) Neg mg/dL (Negative) 12/07/18 13:52 Urine Ketones Neg mg/dL (Negative) 12/07/18 13:52 Urine Blood Neg (Negative) 12/07/18 13:52 Urine Nitrite Neg (Negative) 12/07/18 13:52 Urine Bilirubin Neg (Negative) 12/07/18 13:52 Urine Urobilinogen 2.0 mg/dL (<2.0) 12/07/18 13:52 Ur Leukocyte Esterase Neg (Negative) 12/07/18 13:52 Urine WBC (Auto) < 1.0 /HPF (0.0-6.0) 12/07/18 13:52 Urine RBC (Auto) 3.0 /HPF (0.0-6.0) 12/07/18 13:52 Urine Mucus 2+ /HPF 12/07/18 13:52 Active Medications - Current Medications Current Medications: Generic Name Dose Route Start Last Admin Trade Name Freq PRN Reason Stop Dose Admin Acetaminophen 650 mg 12/07/18 19:13 Tylenol PO Q4H PRN Pain MILD(1-3)/Fever >100.5/SARGENT Acetaminophen/Codeine Phosphate 1 tab 12/07/18 18:49 Tylenol #3 PO Q6H PRN Pain , Severe (7-10) Albuterol 2.5 mg 12/07/18 19:13 Proventil IH Q4H PRN Shortness Of Breath Sodium Chloride 1,000 mls @ 125 mls/hr 12/07/18 20:00 12/08/18 05:06 Nacl 0.9% 1000 Ml IV 125 mls/hr DIRECT FRANCO Administration Morphine Sulfate 2 mg 12/08/18 11:49 Morphine IV Q3H PRN Pain, Moderate (4-6) Ondansetron HCl 4 mg 12/07/18 19:13 Zofran IV Q8H PRN Nausea And Vomiting Sodium Chloride 10 ml 12/07/18 22:00 12/08/18 09:16 Sodium Chloride Flush Syringe 10 Ml IV 10 ml BID FRANCO Administration Sodium Chloride 10 ml 12/07/18 19:13 Sodium Chloride Flush Syringe 10 Ml IV PRN PRN LINE FLUSH
--- NOTE | 2018-12-08 13:42 | Consultation ---
History of Present Illness - Reason for Consult Consult date: 12/08/18 Diarrhea Requesting physician: LUISITO COHEN - History of Present Illness The patient is a 28-year-old male with the nicotine dependence, asthma came into the emergency room on 12/07/2018 with complaints of nausea, vomiting and diarrhea along with abdominal pain going on for about 1 week prior to ad mission.. Ct abdomen and pelvis showed fluid-filled appendix with multiple prominent right lower quadrant lymph nodes. He has otherwise been afebrile. He is currently on any antibiotics. Infectious diseases was consulted due to the diarrhea. Per patient, his (present at bedside) also had similar symptoms, but they resolved much sooner. They have 2 kids, youngest is 4 years old, both do not have any GI illness. Patient denies being tested for HIV. Smokes daily, alcohol on weekends, no other recreational drugs. Since admission, he has not had any vomiting or diarrhea, hasn't been able to give a stool sample. Reports mild periumbilical pain. Also reports getting abx x 1 week for R knee infection about 6 weeks ago, doesn't recall which abx. Review of Systems: General: no fevers, chills or rigors HEENT: no new visual disturbance Respiratory: No cough, sputum, hemoptysis or shortness of breath Cardiovascular: No chest pain, syncope Gastrointestinal: + nausea, vomiting, diarrhea as above Genitourinary: No dysuria or hematuria Musculoskeletal: No new or worsening neck pain or back pain Neurologic: No headaches, seizures Hematologic: No easy bruising or bleeding Endocrine: No night sweats or acute weight loss Skin: negative for rash, jaundice Psychiatric: No suicidal or homicidal ideation Past History Past Medical History: other (see hpi) Past Surgical History: No surgical history, Other (reviewed) Social history: , lives with family, smoking Family history: hypertension Medications and Allergies Allergies Allergy/AdvReac Type Severity Reaction Status Date / Time blueberry [Blueberry] Allergy Hives Verified 01/02/13 13:21 mushroom Allergy Hives Verified 02/05/18 12:55 pineapple [Pineapple] Allergy Hives Verified 01/02/13 13:21 raspberry [Raspberry] Allergy Hives Verified 01/02/13 13:21 Active Meds: Active Medications Acetaminophen (Tylenol) 650 mg PO Q4H PRN PRN Reason: Pain MILD(1-3)/Fever >100.5/SARGENT Acetaminophen/Codeine Phosphate (Tylenol #3) 1 tab PO Q6H PRN PRN Reason: Pain , Severe (7-10) Albuterol (Proventil) 2.5 mg IH Q4H PRN PRN Reason: Shortness Of Breath Sodium Chloride (Nacl 0.9% 1000 Ml) 1,000 mls @ 125 mls/hr IV DIRECT [facility] Last Admin: 12/08/18 05:06 Dose: 125 mls/hr Documented by: Morphine Sulfate (Morphine) 2 mg IV Q3H PRN PRN Reason: Pain, Moderate (4-6) Ondansetron HCl (Zofran) 4 mg IV Q8H PRN PRN Reason: Nausea And Vomiting Sodium Chloride (Sodium Chloride Flush Syringe 10 Ml) 10 ml IV BID [facility] Last Admin: 12/08/18 09:16 Dose: 10 ml Documented by: Sodium Chloride (Sodium Chloride Flush Syringe 10 Ml) 10 ml IV PRN PRN PRN Reason: LINE FLUSH Physical Examination - Physical Exam Narrative exam: Physical Exam: Constitutional: Alert, cooperative. No acute distress Head, Ears, Nose: Normocephalic, atraumatic. External ears, nose normal Eyes: Conjunctivae/corneas clear. No icterus. No ptosis. Neck: Supple, no meningeal signs Oral: dentition fair, no thrush Cardiovascular: S1, S2 normal. Respiratory: Good air entry, clear to auscultation bilaterally GI: Soft, mild janene-umbilical tenderness; bowel sounds normal. No peritoneal signs Musculoskeletal: No pedal edema, no cyanosis. Skin: No rash or abscess Hem/Lymphatic: No palpable cervical or supraclavicular nodes. No lymphangitis Psych: Mood ok. Affect normal Neurological: Awake, alert, oriented. No gross abnormality - Constitutional Vitals: Vital Signs Temp Pulse Resp BP Pulse Ox 98.2 F 61 18 128/77 99 12/08/18 11:37 12/08/18 11:37 12/08/18 11:37 12/08/18 11:37 12/08/18 11:37 Temperature -Last 24 Hours Temperature 98.2 F Temperature 98.0 F Temperature 97.8 F Temperature 98.2 F Temperature 98.0 F Results - Labs CBC & Chem 7: 12/07/18 13:00 12/07/18 13:00 Labs: Abnormal lab results 12/07/18 Range/Units 20:57 Lactic Acid 0.60 L (0.7-2.0) mmol/L - Imaging and Cardiology CT scan - abdomen: report reviewed, image reviewed (fluid filled appendix and lymph nodes in RLQ.) Assessment and Plan Cultures: none yet A/P: 28-year-old male with the nicotine dependence, asthma came into the emergency room on 12/07/2018 with complaints of nausea, vomiting and diarrhea along with abdominal pain 1) Acute gastroenteritis: ?viral v/s bacterial. No fever or leucocytosis. Continue supportive care. No need for abx as of now. was also sick with similar symptoms. Patient did take abx x 1 week about 6 weeks ago for R knee infection. CT with findings of fluid filled appendix and lymphadenopathy. Recs: agree with HIV (patient gave verbal consent), stool studies, C.diff PCR continue supportive care no abx for now unless patient develops any fever or hemodynamic instability Rocio Gordon MD, FACP [facility] ([facility] C: [phone] O: [phone] F: [phone]
--- NOTE | 2018-12-08 18:23 | Consultation ---
REASON FOR CONSULTATION: 1. Rule out appendicitis? 2. Rule out gastroenteritis/colitis. HISTORY OF PRESENT ILLNESS: The patient is a 28-year-old gentleman, who presented to the Emergency Room with a 10-day history of diarrhea, approximately 7-8 bowel movements a day. States he has had some abdominal pain and vomited a couple of days initially, but has not vomited in quite a few days now. PAST MEDICAL HISTORY: Pertinent for asthma. PAST SURGICAL HISTORY: Negative. ALLERGIES: No known allergies. MEDICATIONS: No medications. FAMILY HISTORY: Negative. SOCIAL HISTORY: States he drinks alcohol on the weekends and now smokes half a pack a day for approximately 10 years. PHYSICAL EXAMINATION: GENERAL: At this time reveals the patient to be awake, alert, cooperative, and in no acute distress. VITAL SIGNS: Show him to be afebrile with a temperature of 98, blood pressure is 125/76, pulse of 60, and respirations of 18. ABDOMEN: Reveals it to be very minimally distended, but nontender. No right lower quadrant tenderness can be elicited at this time. LABORATORY DATA: Lab work at present includes a CBC, which shows a white count of 6.7 and H and H is 14 and 45. Electrolytes are within normal limits including a sodium of 139, potassium of 4, chloride of 103, BUN is 7, and creatinine is 1. LFTs were also within normal limits. A CT scan of the abdomen has been performed, whose findings reveal mildly prominent fluid filled appendix, but no real periappendiceal inflammatory changes. Also, some prominent lymph nodes are noted in the right lower quadrant. IMPRESSION: At this time is that of a healthy 28-year-old male, rule out colitis with probably some mesenteric adenitis. Doubt appendicitis at this time. RECOMMENDATIONS: Would keep the patient n.p.o. until his diarrhea resolving. Aggressive IV fluid hydration. Obtain stool cultures as well as a stool for ova and parasites. We will also obtain ID evaluation for a possible colitis or other lower GI pathology causing this long-term diarrhea. We will monitor clinically and follow closely with you. Thank you very much for the consultation. JOB# [id number] UYEN/NTS
[2018-12-09] MEDS: SODIUM CHLORIDE 0.9% 1000 ML 1,000 ML IV SCH (06:23)
[2018-12-09 09:00] LABS: Basophils % (Auto) 0.5 % (0.0-1.8); Eosinophils # (Auto) 0.1 K/mm3 (0.0-0.4); Eosinophils % (Auto) 1.9 % (0.0-4.3); Hematocrit 42.7 % (35.5-45.6); Hemoglobin 13.8 gm/dl (11.8-15.2); Lymphocytes % (Auto) 34.6 % (13.4-35.0); Mean Corpuscular HGB Conc 32 % (32-34); Mean Corpuscular Volume 71 fl (84-94); Monocytes # (Auto) 0.6 K/mm3 (0.0-0.8); Monocytes % (Auto) 11.1 % (0.0-7.3); Platelet Count 269 K/mm3 (140-440); Red Blood Count 6.05 M/mm3 (3.65-5.03); Red Cell Distribution Width 14.4 % (13.2-15.2)
--- NOTE | 2018-12-09 09:20 | Gastroenterology Consultation ---
<IVETTE LABOY - Last Filed: 12/09/18 10:17> History of Present Illness - Reason for Consult Consult date: 12/09/18 diarrhea Requesting physician: LUISITO COHEN - History of Present Illness Patient is a 28 y/o male with PMH of nicotine dependence, asthma, and seasonal allergies who presented to ED on 12/07/18 with c/o N/V, diarrhea, and abdominal pain x 1 week. Upon admission, abd CT showed fluid-filled appendix with multiple prominent right lower quadrant lymph nodes (colitis with mesenteric adenitis?). GI has been consulted for diarrhea. This morning patient was resting in bed w/o acute distress. Reports feeling better with symptoms improved. No N/V. Diarrhea significantly improved from countless number of BMs a day to now 3 yesterday and only 1 this am (stool still liquids with a few solid pieces per pt; baseline bowel habit BMs x 2/day with solid stool). Admits to recent antibiotic use for right knee infection ~4-6 weeks ago. States family also has similar symptoms, but they resolved much sooner. Denies fever, CP, SOB, signs of bleeding, or constipation. No hx or Fhx of IBD. No previous colonoscopy. Past History Past Medical History: other (see hpi) Past Surgical History: No surgical history Social history: , lives with family, smoking Family history: hypertension Medications and Allergies Allergies Allergy/AdvReac Type Severity Reaction Status Date / Time blueberry [Blueberry] Allergy Hives Verified 01/02/13 13:21 mushroom Allergy Hives Verified 02/05/18 12:55 pineapple [Pineapple] Allergy Hives Verified 01/02/13 13:21 raspberry [Raspberry] Allergy Hives Verified 01/02/13 13:21 Active Meds: Active Medications Acetaminophen (Tylenol) 650 mg PO Q4H PRN PRN Reason: Pain MILD(1-3)/Fever >100.5/SARGENT Acetaminophen/Codeine Phosphate (Tylenol #3) 1 tab PO Q6H PRN PRN Reason: Pain, Moderate (4-6) Albuterol (Proventil) 2.5 mg IH Q4H PRN PRN Reason: Shortness Of Breath Sodium Chloride (Nacl 0.9% 1000 Ml) 1,000 mls @ 125 mls/hr IV DIRECT [facility] Last Admin: 12/09/18 06:23 Dose: 125 mls/hr Documented by: Morphine Sulfate (Morphine) 2 mg IV Q3H PRN PRN Reason: Pain , Severe (7-10) Last Admin: 12/08/18 21:36 Dose: 2 mg Documented by: Ondansetron HCl (Zofran) 4 mg IV Q8H PRN PRN Reason: Nausea And Vomiting Sodium Chloride (Sodium Chloride Flush Syringe 10 Ml) 10 ml IV BID [facility] Last Admin: 12/08/18 21:39 Dose: 10 ml Documented by: Sodium Chloride (Sodium Chloride Flush Syringe 10 Ml) 10 ml IV PRN PRN PRN Reason: LINE FLUSH medications reviewed/updated as required Review of Systems - Review of Systems Gastrointestinal: abdominal pain, nausea, vomiting, diarrhea Exam - Constitutional Vital Signs: Temp Pulse Resp BP Pulse Ox 97.9 F 92 H 18 136/87 98 12/09/18 08:05 12/09/18 08:05 12/09/18 08:05 12/09/18 08:05 12/09/18 08:05 General appearance: no acute distress - EENT Eyes: PERRL, EOM intact ENT: hearing intact - Respiratory Respiratory effort: normal Respiratory: bilateral: CTA - Cardiovascular Rhythm: regular - Gastrointestinal General gastrointestinal: Present: soft, tender (slight TTP), non-distended, normal bowel sounds - Integumentary Integumentary: Present: warm, dry - Neurologic Neurological: alert and oriented x3 - Labs CBC & Chem 7: 12/09/18 08:24 12/09/18 08:24 Lab Results: Laboratory Results - last 24 hr 12/08/18 12/09/18 09:55 08:24 WBC 5.8 RBC 6.05 H Hgb 13.8 Hct 42.7 MCV 71 L MCH 23 L MCHC 32 RDW 14.4 Plt Count 269 Lymph % (Auto) 34.6 [place] % (Auto) 11.1 H Eos % (Auto) 1.9 Baso % (Auto) 0.5 Lymph # 2.0 [place] # 0.6 Eos # 0.1 Baso # 0.0 Seg Neutrophils % 51.9 Seg Neutrophils # 3.0 Lactic Acid 0.70 Assessment and Plan 1.diarrhea 2.N/V 3.abdominal pain -afebrile -WBC, H/H, LFTs, and lipase WNL -abd CT showed fluid-filled appendix with multiple prominent right lower quadrant lymph nodes (colitis with mesenteric adenitis?) -etiology-likely infectious given history (viral v/s bacterial) vs other -HIV pending -stool studies (C-diff, culture, O&P, WBC) pending -ID following with no recommendations for abx therapy at this time -surgery following with no surgical intervention recommended at this time -clinically, patient is stable with symptoms improved. Frequency of BMs significantly improved from countless number to now 3 yesterday and only 1 so far today. Denies abd pain or N/V. Requesting diet. -no plan for scope at this time, will consider colonoscopy in the future as outpatient if diarrhea persists once acute process has resolved -okay to start on diet if okay with surgery -continue supportive care -once tolerating PO, patient okay to be d/c per GI standpoint with f/u in clinic <JUAQUIN CORTES - Last Filed: 12/10/18 00:03> Exam - Constitutional Vital Signs: Temp Pulse Resp BP Pulse Ox 98.5 F 70 18 147/87 96 12/09/18 16:16 12/09/18 16:16 12/09/18 16:16 12/09/18 16:16 12/09/18 16:16 - Labs CBC & Chem 7: 12/09/18 08:24 12/09/18 08:24 Lab Results: Laboratory Results - last 24 hr 12/08/18 12/09/18 12/09/18 08:10 08:24 08:24 WBC 5.8 RBC 6.05 H Hgb 13.8 Hct 42.7 MCV 71 L MCH 23 L MCHC 32 RDW 14.4 Plt Count 269 Lymph % (Auto) 34.6 [place] % (Auto) 11.1 H Eos % (Auto) 1.9 Baso % (Auto) 0.5 Lymph # 2.0 [place] # 0.6 Eos # 0.1 Baso # 0.0 Seg Neutrophils % 51.9 Seg Neutrophils # 3.0 Sodium 140 Potassium 3.9 Chloride 106.6 Carbon Dioxide 21 L Anion Gap 16 BUN 5 L Creatinine 1.0 Estimated GFR > 60 BUN/Creatinine Ratio 5 Glucose 80 Calcium 8.9 C. difficile Tox (PCR) Negative Assessment and Plan Patient seen and examined. I have reviewed the advanced practitioner's evaluation, assessment, and plan, and agree with them. I note the following additions: patient reports symptoms gradually improving Therefore f/u labs, but from GI standpoint recommend start bland low residue diet and may follow up with us in clinic; no requirement for colonoscopy as an inpatient at this juncture - Patient Problems (1) Abdominal pain Status: Acute Qualifiers: Abdominal location: generalized Qualified Code(s): R10.84 - Generalized abdominal pain (2) Gastroenteritis Status: Acute (3) Nausea vomiting and diarrhea Status: Acute
[2018-12-09 09:25] LABS: BUN/Creatinine Ratio 5; Blood Urea Nitrogen 5 mg/dL (9-20); Calcium 8.9 mg/dL (8.4-10.2); Hemolysis Index 27
--- NOTE | 2018-12-09 10:16 | Progress Note ---
Assessment and Plan Assessment and plan: 28-year-old man who presents to the hospital complaining of diarrhea x10 days. CT showed fluid-filled appendix, general surgery input appreciated, , suspect infectious colitis with some mesenteric adenitis, apparently his spouse also had similar symptoms Continue supportive care, IV fluids pain meds antiemetics -We will feed patient now, if tolerates diet will discharge later today -Follow-up stool cultures/studies -Age-appropriate STD screening has been ordered Diagnosis Abdominal pain and diarrhea Acute infectious colitis with mesenteric adenitis Dehydration dvt ppx early ambulation History Interval history: Review of systems Constitutional: No fevers, no malaise, no joint pains CVS: No chest pain, no orthopnea, no pedal edema GI: Denies abdominal pain or diarrhea today Respiratory: No shortness of breath, no wheezing, no coughing Hospitalist Physical - Physical exam Narrative exam: General.: Mild distress HEENT: Moist mucous membranes, extraocular muscles intact, no lymphadenopathy Neck: supple Cardiac: S1-S2 heard Lungs: clear to auscultation bilaterally Abdomen: soft , nontender, nondistended, bowel sounds positive Extremities: no edema clubbing or cyanosis Skin: no rash or lesions Neurologic: no gross focal deficits Psych: calm, and cooperative - Constitutional Vitals: Temp Pulse Resp BP Pulse Ox 97.9 F 92 H 18 136/87 98 12/09/18 08:05 12/09/18 08:05 12/09/18 08:05 12/09/18 08:05 12/09/18 08:05 General appearance: Present: mild distress, disheveled Results - Labs CBC & Chem 7: 12/09/18 08:24 12/09/18 08:24 Labs: Laboratory Last Values WBC 5.8 K/mm3 (4.5-11.0) 12/09/18 08:24 RBC 6.05 M/mm3 (3.65-5.03) H 12/09/18 08:24 Hgb 13.8 gm/dl (11.8-15.2) 12/09/18 08:24 Hct 42.7 % (35.5-45.6) 12/09/18 08:24 MCV 71 fl (84-94) L 12/09/18 08:24 MCH 23 pg (28-32) L 12/09/18 08:24 MCHC 32 % (32-34) 12/09/18 08:24 RDW 14.4 % (13.2-15.2) 12/09/18 08:24 Plt Count 269 K/mm3 (140-440) 12/09/18 08:24 Lymph % (Auto) 34.6 % (13.4-35.0) 12/09/18 08:24 [place] % (Auto) 11.1 % (0.0-7.3) H 12/09/18 08:24 Eos % (Auto) 1.9 % (0.0-4.3) 12/09/18 08:24 Baso % (Auto) 0.5 % (0.0-1.8) 12/09/18 08:24 Lymph # 2.0 K/mm3 (1.2-5.4) 12/09/18 08:24 [place] # 0.6 K/mm3 (0.0-0.8) 12/09/18 08:24 Eos # 0.1 K/mm3 (0.0-0.4) 12/09/18 08:24 Baso # 0.0 K/mm3 (0.0-0.1) 12/09/18 08:24 Seg Neutrophils % 51.9 % (40.0-70.0) 12/09/18 08:24 Seg Neutrophils # 3.0 K/mm3 (1.8-7.7) 12/09/18 08:24 Sodium 140 mmol/L (137-145) 12/09/18 08:24 Potassium 3.9 mmol/L (3.6-5.0) 12/09/18 08:24 Chloride 106.6 mmol/L (98-107) 12/09/18 08:24 Carbon Dioxide 21 mmol/L (22-30) L 12/09/18 08:24 Anion Gap 16 mmol/L 12/09/18 08:24 BUN 5 mg/dL (9-20) L 12/09/18 08:24 Creatinine 1.0 mg/dL (0.8-1.5) 12/09/18 08:24 Estimated GFR > 60 ml/min 12/09/18 08:24 BUN/Creatinine Ratio 5 % 12/09/18 08:24 Glucose 80 mg/dL (75-100) 12/09/18 08:24 Lactic Acid 0.70 mmol/L (0.7-2.0) 12/08/18 09:55 Calcium 8.9 mg/dL (8.4-10.2) 12/09/18 08:24 Total Bilirubin 0.50 mg/dL (0.1-1.2) 12/07/18 13:00 AST 23 units/L (5-40) 12/07/18 13:00 ALT 27 units/L (7-56) 12/07/18 13:00 Alkaline Phosphatase 62 units/L (35-129) 12/07/18 13:00 Total Protein 8.4 g/dL (6.3-8.2) H 12/07/18 13:00 Albumin 4.8 g/dL (3.9-5) 12/07/18 13:00 Albumin/Globulin Ratio 1.3 % 12/07/18 13:00 Lipase 28 units/L (13-60) 12/07/18 13:00 Urine Color Yellow (Yellow) 12/07/18 13:52 Urine Turbidity Clear (Clear) 12/07/18 13:52 Urine pH 5.0 (5.0-7.0) 12/07/18 13:52 Ur Specific [place] 1.027 (1.003-1.030) 12/07/18 13:52 Urine Protein 30 mg/dl mg/dL (Negative) 12/07/18 13:52 Urine Glucose (UA) Neg mg/dL (Negative) 12/07/18 13:52 Urine Ketones Neg mg/dL (Negative) 12/07/18 13:52 Urine Blood Neg (Negative) 12/07/18 13:52 Urine Nitrite Neg (Negative) 12/07/18 13:52 Urine Bilirubin Neg (Negative) 12/07/18 13:52 Urine Urobilinogen 2.0 mg/dL (<2.0) 12/07/18 13:52 Ur Leukocyte Esterase Neg (Negative) 12/07/18 13:52 Urine WBC (Auto) < 1.0 /HPF (0.0-6.0) 12/07/18 13:52 Urine RBC (Auto) 3.0 /HPF (0.0-6.0) 12/07/18 13:52 Urine Mucus 2+ /HPF 12/07/18 13:52 Active Medications - Current Medications Current Medications: Generic Name Dose Route Start Last Admin Trade Name Freq PRN Reason Stop Dose Admin Acetaminophen 650 mg 12/07/18 19:13 Tylenol PO Q4H PRN Pain MILD(1-3)/Fever >100.5/SARGENT Acetaminophen/Codeine Phosphate 1 tab 12/07/18 18:49 Tylenol #3 PO Q6H PRN Pain, Moderate (4-6) Albuterol 2.5 mg 12/07/18 19:13 Proventil IH Q4H PRN Shortness Of Breath Sodium Chloride 1,000 mls @ 125 mls/hr 12/07/18 20:00 12/09/18 06:23 Nacl 0.9% 1000 Ml IV 125 mls/hr DIRECT [facility] Administration Morphine Sulfate 2 mg 12/08/18 11:49 12/08/18 21:36 Morphine IV 2 mg Q3H PRN Administration Pain , Severe (7-10) Ondansetron HCl 4 mg 12/07/18 19:13 Zofran IV Q8H PRN Nausea And Vomiting Sodium Chloride 10 ml 12/07/18 22:00 12/08/18 21:39 Sodium Chloride Flush Syringe 10 Ml IV 10 ml BID [facility] Administration Sodium Chloride 10 ml 12/07/18 19:13 Sodium Chloride Flush Syringe 10 Ml IV PRN PRN LINE FLUSH
--- NOTE | 2018-12-09 13:02 | Discharge Summary ---
Providers - Providers Date of Admission: 12/07/18 18:48 Attending physician: PRUDENCIO RODRIGUEZ MD 12/08/18 08:16 Consult to Physician [CONS] Routine Comment: CLD DR RODRIGUEZ TO PUT IN CONSULT TO ADD TO [facility] Consulting Provider: LUISITO COHEN Physician Instructions: Reason For Exam: abdo pain 12/08/18 09:28 Consult to Physician [CONS] Routine Comment: Consulting Provider: SAMMY MCWILLIAMS Physician Instructions: Reason For Exam: r/o colitis 12/08/18 09:34 Consult to Physician [CONS] Routine Comment: Consulting Provider: FARZAD LITTLE Physician Instructions: Reason For Exam: persistent diarrhea Primary care physician: ASSEMBLER FAUCETS Hospitalization Condition: Stable Hospital course: 28-year-old man who presents to the hospital complaining of diarrhea x10 days. He reported that his spouse also had similar symptoms. CT showed fluid-filled appendix, general surgery input appreciated, patient improved, diarrhea resolved, patient tolerated diet and was subsequently discharged -Age-appropriate STD screening has been ordered and pending, patient will be called at home or sent a letter if any of these tests come back positive Diagnosis Abdominal pain and diarrhea Acute infectious colitis with mesenteric adenitis Dehydration dvt ppx early ambulation Disposition: DC-01 TO HOME OR SELFCARE Time spent for discharge: 33 mins Core Measure Documentation - Palliative Care Palliative Care/ Comfort Measures: Not Applicable - Core Measures Any of the following diagnoses?: none Exam - Constitutional Vitals: Temp Pulse Resp BP Pulse Ox 98.2 F 55 L 18 126/79 99 12/09/18 11:40 12/09/18 11:40 12/09/18 11:40 12/09/18 11:40 12/09/18 11:40 General appearance: Present: no acute distress, well-nourished - EENT Eyes: Present: PERRL ENT: hearing intact, clear oral mucosa - Neck Neck: Present: supple, normal ROM - Respiratory Respiratory effort: normal Respiratory: bilateral: CTA - Cardiovascular Heart Sounds: Present: S1 & S2. Absent: rub, click - Extremities Extremities: pulses symmetrical, No edema Peripheral Pulses: within normal limits - Abdominal General gastrointestinal: Present: soft, non-tender, non-distended, normal bowel sounds Male genitourinary: Present: normal - Integumentary Integumentary: Present: clear, warm, dry - Musculoskeletal Musculoskeletal: gait normal, strength equal bilaterally - Psychiatric Psychiatric: appropriate mood/affect, intact judgment & insight - Neurologic Neurologic: CNII-XII intact, moves all extremities Plan Follow up with: LUISITO COHEN MD [Staff Physician] - 7 Days PRIMARY CARE, [Primary Care Provider] - 3-5 Days Prescriptions: Acetaminophen/Codeine [Tylenol /Codeine # 3 tab] 1 tab PO Q6H PRN #20 tablet PRN Reason: Pain, Moderate (4-6)
--- NOTE | 2018-12-09 13:24 | Progress Note ---
Assessment and Plan Pt feeling well. hungry. no loose stools today. "ready to go home" Abd soft, non tender ID & GI evals apperciated surgically stable rec full liq diet may d/c today if diet neil advance to solid diet at home as neil once diarrhea has resolved rto this Fri Objective Vital Signs - 12hr 12/09/18 12/09/18 12/09/18 06:24 08:05 10:00 Temperature 98 F 97.9 F Pulse Rate 58 L 92 H Respiratory 17 18 Rate Respiratory 17 Rate [denies] Blood Pressure Blood Pressure 127/82 [Left] Blood Pressure 136/87 [Right] O2 Sat by Pulse 95 98 Oximetry 12/09/18 11:40 Temperature 98.2 F Pulse Rate 55 L Respiratory 18 Rate Respiratory Rate [denies] Blood Pressure 126/79 Blood Pressure [Left] Blood Pressure [Right] O2 Sat by Pulse 99 Oximetry - Labs 12/09/18 08:24 12/09/18 08:24 Diabetes panel 12/09/18 Range/Units 08:24 Sodium 140 (137-145) mmol/L Potassium 3.9 (3.6-5.0) mmol/L Chloride 106.6 (98-107) mmol/L Carbon Dioxide 21 L (22-30) mmol/L BUN 5 L (9-20) mg/dL Creatinine 1.0 (0.8-1.5) mg/dL Glucose 80 (75-100) mg/dL Calcium 8.9 (8.4-10.2) mg/dL Calcium panel 12/09/18 Range/Units 08:24 Calcium 8.9 (8.4-10.2) mg/dL Pituitary panel 12/09/18 Range/Units 08:24 Sodium 140 (137-145) mmol/L Potassium 3.9 (3.6-5.0) mmol/L Chloride 106.6 (98-107) mmol/L Carbon Dioxide 21 L (22-30) mmol/L BUN 5 L (9-20) mg/dL Creatinine 1.0 (0.8-1.5) mg/dL Glucose 80 (75-100) mg/dL Calcium 8.9 (8.4-10.2) mg/dL Adrenal panel 12/09/18 Range/Units 08:24 Sodium 140 (137-145) mmol/L Potassium 3.9 (3.6-5.0) mmol/L Chloride 106.6 (98-107) mmol/L Carbon Dioxide 21 L (22-30) mmol/L BUN 5 L (9-20) mg/dL Creatinine 1.0 (0.8-1.5) mg/dL Glucose 80 (75-100) mg/dL Calcium 8.9 (8.4-10.2) mg/dL
--- NOTE | 2018-12-09 15:33 | Progress Note ---
Assessment and Plan Cultures: Stool cultures - NGTD A/P: 28-year-old male with the nicotine dependence, asthma came into the emergency room on 12/07/2018 with complaints of nausea, vomiting and diarrhea along with abdominal pain 1) Acute gastroenteritis: ?viral v/s bacterial. No fever or leucocytosis. Cont inue supportive care. No need for abx as of now. was also sick with similar symptoms. Patient did take abx x 1 week about 6 weeks ago for R knee infection. CT with findings of fluid filled appendix and lymphadenopathy. Stool studies negative so far, HIV is pending. C diff is negative Recs: follow up with HIV (patient gave verbal consent) continue supportive care no abx for now unless patient develops any fever or hemodynamic instability Ok for discharge from infectious disease perspective. Yoni Kaplan MD [facility] ([facility]) M: [phone] O: [phone] F: [phone] Subjective Date of service: 12/09/18 Interval history: Feels improved. normal white count, afebrile. Objective - Exam Narrative Exam: Physical Exam: Constitutional: Alert, cooperative. No acute distress Head, Ears, Nose: Normocephalic, atraumatic. External ears, nose normal Eyes: Conjunctivae/corneas clear. No icterus. No ptosis. Neck: Supple, no meningeal signs Oral: dentition fair, no thrush Cardiovascular: S1, S2 normal. Respiratory: Good air entry, clear to auscultation bilaterally GI: Soft, non-tender; bowel sounds normal. No peritoneal signs. Musculoskeletal: No pedal edema, no cyanosis. Skin: No rash or abscess Hem/Lymphatic: No palpable cervical or supraclavicular nodes. No lymphangitis Psych: Mood ok. Affect normal Neurological: Awake, alert, oriented. No gross abnormality - Constitutional Vitals: Vital Signs Temp Pulse Resp BP Pulse Ox 98.2 F 55 L 18 126/79 99 12/09/18 11:40 12/09/18 11:40 12/09/18 11:40 12/09/18 11:40 12/09/18 11:40 Temperature -Last 24 Hours Temperature 98.2 F Temperature 97.9 F Temperature 98 F Temperature 98.0 F Temperature 98.3 F Temperature 98.6 F - Labs CBC & Chem 7: 12/09/18 08:24 12/09/18 08:24 Labs: Abnormal lab results 12/09/18 12/09/18 Range/Units 08:24 08:24 RBC 6.05 H (3.65-5.03) M/mm3 MCV 71 L (84-94) fl MCH 23 L (28-32) pg [place] % (Auto) 11.1 H (0.0-7.3) % Carbon Dioxide 21 L (22-30) mmol/L BUN 5 L (9-20) mg/dL
[2018-12-09 16:33] VITALS: BP 147/87
[2018-12-13 07:07] LABS: HIV-1 Antibody Differentiation SEE SCANNED RESULT; HIV-2 Antibody Differentiation SEE SCANNED RESULT
== END 2018-12-09 18:25 | disposition home or self-care (01) ==
LOC: ED 12:15 → 3B-SURG 18:48
PROVIDERS: ADMIT Internal Medicine; ATTEND Internal Medicine
DX: K52.9 Noninfective gastroenteritis and colitis, unspecified (principal); R11.2 Nausea with vomiting, unspecified; R19.7 Diarrhea, unspecified; J45.909 Unspecified asthma, uncomplicated; F17.200 Nicotine dependence, unspecified, uncomplicated; Z79.899 Other long term (current) drug therapy; Z91.018 Allergy to other foods
CPT/HCPCS: 36415; 74177; 80048; 80053; 81001; 82140; 83690; 85007; 85025; 86689; 87045; 87177; 87493; 96361; 96374; 99284; G0378; J2270; J2405; J7030; J7120; Q9967

== ENCOUNTER 2019-01-13 22:22 | Emergency (ER) | payer SELFPAY ==
[2019-01-13] MEDS ORDERED: SODIUM CHLORIDE 0.9% 500 ML 500 ML IV ONE (22:34)
[2019-01-13] MEDS ORDERED: ACETAMINOPHEN 325 MG TAB ONE (22:37)
[2019-01-13] MEDS ORDERED: ACETAMINOPHEN 325 MG TAB PO ONE (22:40)
--- NOTE | 2019-01-13 23:08 | XRay Report ---
CHEST 1 VIEW 01/13/2019 11:01 PM INDICATION / CLINICAL INFORMATION: Nonproductive cough. Chest pain. Possible sepsis. COMPARISON: 2 views of the chest from 11/17/2013. FINDINGS: SUPPORT DEVICES: None. HEART / MEDIASTINUM: No significant abnormality. LUNGS / PLEURA: No significant pulmonary or pleural abnormality. No pneumothorax. ADDITIONAL FINDINGS: No significant additional findings. IMPRESSION: 1. No acute abnormality of the chest. Signer Name: Willian Angulo MD Signed: 01/13/2019 11:03 PM Workstation Name: [id number]
[2019-01-13 23:10] LABS: Basophils % (Auto) 0.6 % (0.0-1.8); Hematocrit 45.6 % (35.5-45.6); Hemoglobin 14.7 gm/dl (11.8-15.2); Lymphocytes # (Auto) 1.1 K/mm3 (1.2-5.4); Lymphocytes % (Auto) 21.5 % (13.4-35.0); Mean Corpuscular HGB Conc 32 % (32-34); Mean Corpuscular Volume 71 fl (84-94); Monocytes # (Auto) 0.8 K/mm3 (0.0-0.8); Monocytes % (Auto) 15.1 % (0.0-7.3); Platelet Count 189 K/mm3 (140-440); Red Blood Count 6.43 M/mm3 (3.65-5.03)
[2019-01-13 23:30] LABS: INR 0.98 (0.87-1.13)
[2019-01-13 23:36] LABS: Alanine Aminotransferase 29 units/L (7-56); Albumin 4.5 g/dL (3.9-5); BUN/Creatinine Ratio 8; Blood Urea Nitrogen 9 mg/dL (9-20); Hemolysis Index 0
[2019-01-14 02:14] VITALS: BP 122/75
--- NOTE | 2019-01-14 02:25 | Emergency Department Report ---
ED Fever HPI - General Chief Complaint: Upper Respiratory Infection Stated Complaint: FLU Time Seen by Provider: 01/14/19 02:13 Source: patient, family Exam Limitations: no limitations - History of Present Illness Initial Comments: Juan is a 28 yo male with hx of tobacco abuse who p;resents with body aches, generalized malaise, nasal congestion mild cough. +chills. DId not realized that he had a fever until he came to the ED. NO sick contacts at home. 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 denies: shortness of breath, wheezing Cardiovascular: denies: chest pain Gastrointestinal: denies: abdominal pain, nausea, vomiting Musculoskeletal: myalgia ED Past Medical Hx - Past Medical History Previous Medical History?: Yes Hx Hypertension: No Hx CVA: No Hx Heart Attack/AMI: No Hx Congestive Heart Failure: No Hx Diabetes: No Hx Deep Vein Thrombosis: No Hx Pulmonary Embolism: No Hx GERD: No Hx Liver Disease: No Hx Renal Disease: No Hx Sickle Cell Disease: No Hx Arthritis: No Hx Headaches / Migraines: No Hx Seizures: No Hx Kidney Stones: No Hx Psychiatric Treatment: No Hx Asthma: Yes Hx COPD: No Hx Tuberculosis: No Hx Dementia: No Hx HIV: No Additional medical history: Sinus Infections - Surgical History Hx Coronary Stent: No Hx Open Heart Surgery: No Hx Pacemaker: No Hx Internal Defibrillator: No Hx Cholecystectomy: No Hx Appendectomy: No Hx Breast Surgery: No - Social History Smoking Status: Current Every Day Smoker - Medications Home Medications: Home Medications Medication Instructions Recorded Confirmed Last Taken Type Acetaminophen/Codeine [Tylenol 1 tab PO Q6H PRN #20 tablet 12/09/18 Unknown Rx /Codeine # 3 tab] Oseltamivir [Tamiflu] 75 mg PO BID 5 Days #10 cap 01/14/19 Unknown Rx ED Physical Exam - General Limitations: No Limitations General appearance: alert, in no apparent distress - Head Head exam: Present: atraumatic, normocephalic - Eye Eye exam: Present: normal appearance - ENT ENT exam: Present: normal orophraynx, mucous membranes moist - Neck Neck exam: Present: normal inspection, full ROM. Absent: tenderness, meningismus - Respiratory Respiratory exam: Present: normal lung sounds bilaterally. Absent: respiratory distress, wheezes, rales, rhonchi, chest wall tenderness, accessory muscle use, decreased breath sounds - Cardiovascular Cardiovascular Exam: Present: regular rate, normal rhythm, normal heart sounds. Absent: systolic murmur, diastolic murmur, rubs, gallop - GI/Abdominal GI/Abdominal exam: Present: soft, normal bowel sounds. Absent: distended, tenderness, guarding, rebound - Rectal Rectal exam: Present: deferred - Extremities Exam Extremities exam: Present: normal inspection - Back Exam Back exam: Present: normal inspection - Neurological Exam Neurological exam: Present: alert, oriented X3 - Psychiatric Psychiatric exam: Present: normal affect, normal mood - Skin Skin exam: Present: warm, dry, intact, normal color. Absent: rash ED Course Vital Signs 01/13/19 01/13/19 01/14/19 22:52 23:00 02:14 Temperature 102.5 F H 99.3 F Pulse Rate 120 H 85 Respiratory 18 18 18 Rate Blood Pressure 122/75 [Left] O2 Sat by Pulse 100 100 Oximetry ED Medical Decision Making - Lab Data Result diagrams: 01/13/19 22:45 01/13/19 22:45 Laboratory Results - last 24 hr 01/13/19 01/13/19 01/13/19 22:45 22:45 22:45 WBC 5.2 RBC 6.43 H Hgb 14.7 Hct 45.6 MCV 71 L MCH 23 L MCHC 32 RDW 15.0 Plt Count 189 Lymph % (Auto) 21.5 [place] % (Auto) 15.1 H Eos % (Auto) 0.0 Baso % (Auto) 0.6 Lymph # 1.1 L [place] # 0.8 Eos # 0.0 Baso # 0.0 Seg Neutrophils % 62.8 Seg Neutrophils # 3.3 PT 12.9 INR 0.98 VBG pH Sodium 136 L Potassium 3.6 Chloride 98.9 Carbon Dioxide 23 Anion Gap 18 BUN 9 Creatinine 1.1 Estimated GFR > 60 BUN/Creatinine Ratio 8 Glucose 108 H Lactic Acid Calcium 9.0 Total Bilirubin 0.60 AST 27 ALT 29 Alkaline Phosphatase 60 Total Protein 7.9 Albumin 4.5 Albumin/Globulin Ratio 1.3 01/13/19 01/13/19 22:45 22:45 WBC RBC Hgb Hct MCV MCH MCHC RDW Plt Count Lymph % (Auto) [place] % (Auto) Eos % (Auto) Baso % (Auto) Lymph # [place] # Eos # Baso # Seg Neutrophils % Seg Neutrophils # PT INR VBG pH 7.406 Sodium Potassium Chloride Carbon Dioxide Anion Gap BUN Creatinine Estimated GFR BUN/Creatinine Ratio Glucose Lactic Acid 0.70 Calcium Total Bilirubin AST ALT Alkaline Phosphatase Total Protein Albumin Albumin/Globulin Ratio - Radiology Data Radiology results: report reviewed Chest radiograph two-view no acute process according to radiology report - Medical Decision Making clinical diagnosis of influenza prescribed Tamiflu Normal workup in the emergency department includes CBC chemistry lactic acid level, venous pH, chest radiographs. All tests were unremarkable. Critical care attestation.: If time is entered above; I have spent that time in minutes in the direct care of this critically ill patient, excluding procedure time. ED Disposition Clinical Impression: Influenza Disposition: DC-01 TO HOME OR SELFCARE Is pt being admited?: No Does the pt Need Aspirin: No Condition: Stable Instructions: Influenza (ED) Prescriptions: Oseltamivir [Tamiflu] 75 mg PO BID 5 Days #10 cap Forms: Work/School Release Form(ED)
[2019-01-14 02:49] LABS: Bilirubin,Urine NEG (Negative); Blood,Urine NEG (Negative); Color,Urine Amber (Yellow); Mucus,Urine 2+ /HPF
[2019-01-14 02:51] LABS: Protein,Urine <15 mg/dL mg/dL (Negative)
== END 2019-01-14 02:35 | disposition home or self-care (01) ==
LOC: ED 22:22
DX: J11.1 Influenza due to unidentified influenza virus with other respiratory manifestations (principal); F17.200 Nicotine dependence, unspecified, uncomplicated; J45.909 Unspecified asthma, uncomplicated; Z79.899 Other long term (current) drug therapy; Z91.018 Allergy to other foods
CPT/HCPCS: 36415; 71045; 80053; 81001; 82140; 82805; 85025; 85610; 87040; 87086; 93005; 93010

== ENCOUNTER 2019-03-31 23:12 | Emergency (ER) | payer SELFPAY ==
[2019-04-01] MEDS ORDERED: cephALEXin 500 MG CAP PO ONE (02:22)
[2019-04-01] MEDS ORDERED: traMADol 50 MG TAB PO ONE (02:22)
[2019-04-01] MEDS ORDERED: cephALEXin 500 MG CAP ONE (02:28)
[2019-04-01] MEDS ORDERED: traMADol 50 MG TAB ONE (02:28)
--- NOTE | 2019-04-01 02:30 | Emergency Department Report ---
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 Home Medications: Previous Rx's Medication Instructions Recorded Last Taken Type Acetaminophen/Codeine [Tylenol 1 tab PO Q6H PRN #20 tablet 12/09/18 Unknown Rx /Codeine # 3 tab] Oseltamivir [Tamiflu] 75 mg PO BID 5 Days #10 cap 01/14/19 Unknown Rx cephALEXin [Keflex] 500 mg PO Q8HR 10 Days #30 cap 04/01/19 Unknown Rx traMADoL [Ultram] 50 mg PO Q6HR PRN #12 tablet 04/01/19 Unknown Rx Allergies/Adverse Reactions: Allergies Allergy/AdvReac Type Severity Reaction Status Date / Time blueberry [Blueberry] Allergy Hives Verified 01/02/13 13:21 mushroom Allergy Hives Verified 02/05/18 12:55 pineapple [Pineapple] Allergy Hives Verified 01/02/13 13:21 raspberry [Raspberry] Allergy Hives Verified 01/02/13 13:21 ED Review of Systems ROS: Stated complaint: RT SIDE FACIAL SWELLING W/PAIN Other details as noted in HPI Constitutional: denies: chills, fever Eyes: denies: eye pain, eye discharge, vision change ENT: denies: ear pain, throat pain Respiratory: denies: cough, shortness of breath, wheezing Cardiovascular: denies: chest pain, palpitations Endocrine: no symptoms reported Gastrointestinal: denies: abdominal pain, nausea, diarrhea Genitourinary: denies: urgency, dysuria Musculoskeletal: denies: back pain, joint swelling, arthralgia Skin: lesions (abscess right cheek). denies: rash Neurological: denies: headache, weakness, paresthesias Psychiatric: denies: anxiety, depression Hematological/Lymphatic: denies: easy bleeding, easy bruising ED Past Medical Hx - Past Medical History Previous Medical History?: Yes Hx Hypertension: No Hx CVA: No Hx Heart Attack/AMI: No Hx Congestive Heart Failure: No Hx Diabetes: No Hx Deep Vein Thrombosis: No Hx Pulmonary Embolism: No Hx GERD: No Hx Liver Disease: No Hx Renal Disease: No Hx Sickle Cell Disease: No Hx Arthritis: No Hx Headaches / Migraines: No Hx Seizures: No Hx Kidney Stones: No Hx Psychiatric Treatment: No Hx Asthma: Yes Hx COPD: No Hx Tuberculosis: No Hx Dementia: No Hx HIV: No Additional medical history: Sinus Infections. chron's - Surgical History Past Surgical History?: No Hx Coronary Stent: No Hx Open Heart Surgery: No Hx Pacemaker: No Hx Internal Defibrillator: No Hx Cholecystectomy: No Hx Appendectomy: No Hx Breast Surgery: No - Social History Smoking Status: Current Every Day Smoker Substance Use Type: Alcohol - Medications Home Medications: Home Medications Medication Instructions Recorded Confirmed Last Taken Type Acetaminophen/Codeine [Tylenol 1 tab PO Q6H PRN #20 tablet 12/09/18 Unknown Rx /Codeine # 3 tab] Oseltamivir [Tamiflu] 75 mg PO BID 5 Days #10 cap 01/14/19 Unknown Rx cephALEXin [Keflex] 500 mg PO Q8HR 10 Days #30 cap 04/01/19 Unknown Rx traMADoL [Ultram] 50 mg PO Q6HR PRN #12 tablet 04/01/19 Unknown Rx ED Abscess Boil Physical Exam - Exam General: right cheek abscess 1x1 cm , flucutant , no drainage, moderate erythema, Vital signs noted. No distress. Alert and acting appropriately. Size: 1 cm Exam: Yes Tenderness, Yes Fluctuance, Yes Surrounding Cellulites/Erythema, Yes Normal Neurologic Exam, Yes Normal Circulation, No Lymphangitis, No Crepitation, No Heart Murmur I & D Note - I & D Note I & D Note: Site cleaned with alcohol prep, anesthesia 1% lidocaine plain times rash 0.5 cc , aspiration incision with 18-gauge needle, moderate purulent wound irrigated with 5 cc sterile saline, sterile dressing is applied ,all bleeding is controlled patient tolerated procedure with minimal distress ED Course Vital Signs 03/31/19 23:19 Temperature 98.7 F Pulse Rate 79 Respiratory 18 Rate Blood Pressure 134/86 O2 Sat by Pulse 98 Oximetry Critical care attestation.: If time is entered above; I have spent that time in minutes in the direct care of this critically ill patient, excluding procedure time. ED Medical Decision Making - Medical Decision Making Right cheek abscess for I&D see I&D procedure note, all bleeders controlled, sterile dressings applied, patient will be DC'd home with prescription for, Keflex and Ultram. Patient will follow-up with PCP in 2 to 3 days for wound check. patient given wound care instructions, patient verbalized agreement and understanding with same. ED Disposition Clinical Impression: Facial abscess Disposition: DC-01 TO HOME OR SELFCARE Is pt being admited?: No Does the pt Need Aspirin: No Condition: Stable Instructions: Abscess (ED) Prescriptions: cephALEXin [Keflex] 500 mg PO Q8HR 10 Days #30 cap traMADoL [Ultram] 50 mg PO Q6HR PRN #12 tablet PRN Reason: Pain Referrals: ANA QUIGLEY MD [Staff Physician] - 3-5 Days Forms: Work/School Release Form(ED) Time of Disposition: 02:39
[2019-04-01 02:55] VITALS: BP 132/88
== END 2019-04-01 02:45 | disposition home or self-care (01) ==
LOC: ED 23:12
DX: L02.01 Cutaneous abscess of face (principal); Z91.018 Allergy to other foods
CPT/HCPCS: 99282

== ENCOUNTER 2019-10-18 15:02 | Emergency (ER) | payer SELFPAY ==
[2019-10-18 15:11] VITALS: BP 145/90
[2019-10-18] MEDS ORDERED: ONDANSETRON 4 MG/2 ML INJ IV ONE (16:35)
[2019-10-18] MEDS ORDERED: SODIUM CHLORIDE 0.9% 1000 ML 1,000 ML IV ONE (16:35)
[2019-10-18] MEDS ORDERED: MORPHINE 4 MG/1 ML INJ IV ONE (16:35)
[2019-10-18 17:20] LABS: Basophils % (Auto) 0.5 % (0.0-1.8); Eosinophils # (Auto) 0.2 K/mm3 (0.0-0.4); Eosinophils % (Auto) 2.5 % (0.0-4.3); Hematocrit 46.4 % (35.5-45.6); Hemoglobin 15.1 gm/dl (11.8-15.2); Lymphocytes # (Auto) 2.2 K/mm3 (1.2-5.4); Lymphocytes % (Auto) 36.3 % (13.4-35.0); Mean Corpuscular HGB Conc 33 % (32-34); Mean Corpuscular Volume 73 fl (84-94); Monocytes # (Auto) 0.7 K/mm3 (0.0-0.8); Platelet Count 232 K/mm3 (140-440); Red Blood Count 6.33 M/mm3 (3.65-5.03); Red Cell Distribution Width 13.9 % (13.2-15.2)
[2019-10-18 17:21] LABS: Alanine Aminotransferase 39 units/L (7-56); Albumin 4.5 g/dL (3.9-5); BUN/Creatinine Ratio 11; Blood Urea Nitrogen 11 mg/dL (9-20); Calcium 9.6 mg/dL (8.4-10.2); Hemolysis Index 5
--- NOTE | 2019-10-18 18:07 | Emergency Department Report ---
ED General Adult HPI - General Chief complaint: Abdominal Pain Stated complaint: ABD PAIN/DIARRHEA Time Seen by Provider: 10/18/19 16:34 Source: patient Mode of arrival: Ambulatory Limitations: No Limitations - History of Present Illness Initial comments: Patient is a 29-year-old male presents emergency room with complaints of left- sided abdominal pain that began 4 days ago. He has associated diarrhea. He denies any fever, vomiting, hematochezia, hematemesis, melena, pus in the stool, rectal pain. He states that in November 2019 he was diagnosed with Crohn's. He states that he is seeing a GI doctor but has not yet had a colonoscopy. Patient states that he is currently on Bentyl, meloxicam, amitriptyline, and another medication for GERD which he cannot remember the name. He states that he also takes Topamax for seizures but denies any recent seizure. He is not currently on any steroids. He denies any medication allergies. Severity scale (0 -10): 4 - Related Data Previous Rx's Medication Instructions Recorded Last Taken Type Acetaminophen/Codeine [Tylenol 1 tab PO Q6H PRN #20 tablet 12/09/18 Unknown Rx /Codeine # 3 tab] Oseltamivir [Tamiflu] 75 mg PO BID 5 Days #10 cap 01/14/19 Unknown Rx cephALEXin [Keflex] 500 mg PO Q8HR 10 Days #30 cap 04/01/19 Unknown Rx traMADoL [Ultram] 50 mg PO Q6HR PRN #12 tablet 04/01/19 Unknown Rx Acetaminophen/Codeine [Tylenol 1 tab PO Q6H PRN #10 tab 10/18/19 Unknown Rx /Codeine # 3 tab] Ciprofloxacin HCl [Ciprofloxacin 500 mg PO BID 7 Days #14 tab 10/18/19 Unknown Rx TAB] Prednisone [predniSONE 10 mg 10 mg PO .TAPER #1 tab.ds.pk 10/18/19 Unknown Rx (6-Day Pack, 21 Tabs)] metroNIDAZOLE [Flagyl] 500 mg PO BID 7 Days #14 tab 10/18/19 Unknown Rx Allergies Allergy/AdvReac Type Severity Reaction Status Date / Time blueberry [Blueberry] Allergy Hives Verified 10/18/19 15:08 mushroom Allergy Hives Verified 10/18/19 15:08 pineapple [Pineapple] Allergy Hives Verified 09/12/20 15:08 raspberry [Raspberry] Allergy Hives Verified 10/18/19 15:08 ED Review of Systems ROS: Stated complaint: ABD PAIN/DIARRHEA Other details as noted in HPI Comment: All other systems reviewed and negative ED Past Medical Hx - Past Medical History Hx Hypertension: No Hx CVA: No Hx Heart Attack/AMI: No Hx Congestive Heart Failure: No Hx Diabetes: No Hx Deep Vein Thrombosis: No Hx Pulmonary Embolism: No Hx GERD: No Hx Liver Disease: No Hx Renal Disease: No Hx Sickle Cell Disease: No Hx Arthritis: No Hx Headaches / Migraines: No Hx Seizures: No Hx Kidney Stones: No Hx Psychiatric Treatment: No Hx Asthma: Yes Hx COPD: No Hx Tuberculosis: No Hx Dementia: No Hx HIV: No Additional medical history: Sinus Infections. chron's - Surgical History Hx Coronary Stent: No Hx Open Heart Surgery: No Hx Pacemaker: No Hx Internal Defibrillator: No Hx Cholecystectomy: No Hx Appendectomy: No Hx Breast Surgery: No - Social History Smoking Status: Current Every Day Smoker - Medications Home Medications: Home Medications Medication Instructions Recorded Confirmed Last Taken Type Acetaminophen/Codeine [Tylenol 1 tab PO Q6H PRN #20 tablet 12/09/18 Unknown Rx /Codeine # 3 tab] Oseltamivir [Tamiflu] 75 mg PO BID 5 Days #10 cap 01/14/19 Unknown Rx cephALEXin [Keflex] 500 mg PO Q8HR 10 Days #30 cap 04/01/19 Unknown Rx traMADoL [Ultram] 50 mg PO Q6HR PRN #12 tablet 04/01/19 Unknown Rx Acetaminophen/Codeine [Tylenol 1 tab PO Q6H PRN #10 tab 10/18/19 Unknown Rx /Codeine # 3 tab] Ciprofloxacin HCl [Ciprofloxacin 500 mg PO BID 7 Days #14 tab 10/18/19 Unknown Rx TAB] Prednisone [predniSONE 10 mg 10 mg PO .TAPER #1 tab.ds.pk 10/18/19 Unknown Rx (6-Day Pack, 21 Tabs)] metroNIDAZOLE [Flagyl] 500 mg PO BID 7 Days #14 tab 10/18/19 Unknown Rx ED Physical Exam - General Limitations: No Limitations General appearance: alert, in no apparent distress - Head Head exam: Present: atraumatic, normocephalic - Eye Eye exam: Present: normal appearance - ENT ENT exam: Present: mucous membranes moist - Respiratory Respiratory exam: Present: normal lung sounds bilaterally. Absent: respiratory distress, wheezes, rales, rhonchi, stridor, chest wall tenderness, accessory muscle use, decreased breath sounds, prolonged expiratory - Cardiovascular Cardiovascular Exam: Present: regular rate, normal rhythm, normal heart sounds. Absent: systolic murmur, diastolic murmur, rubs, gallop - GI/Abdominal GI/Abdominal exam: Present: soft, tenderness (mild left sided ), normal bowel sounds. Absent: distended, guarding, rebound, rigid - Neurological Exam Neurological exam: Present: alert, oriented X3 - Psychiatric Psychiatric exam: Present: normal affect, normal mood - Skin Skin exam: Present: warm, dry, intact ED Course Vital Signs 10/18/19 15:09 Temperature 97.8 F Pulse Rate 75 Respiratory 18 Rate Blood Pressure 145/90 O2 Sat by Pulse 99 Oximetry ED Medical Decision Making - Lab Data Result diagrams: 10/18/19 16:48 10/18/19 16:48 Lab Results 10/18/19 10/18/19 Range/Units 16:48 16:48 WBC 6.1 (4.5-11.0) K/mm3 RBC 6.33 H (3.65-5.03) M/mm3 Hgb 15.1 (11.8-15.2) gm/dl Hct 46.4 H (35.5-45.6) % MCV 73 L (84-94) fl MCH 24 L (28-32) pg MCHC 33 (32-34) % RDW 13.9 (13.2-15.2) % Plt Count 232 (140-440) K/mm3 Lymph % (Auto) 36.3 H (13.4-35.0) % [place] % (Auto) 11.0 H (0.0-7.3) % Eos % (Auto) 2.5 (0.0-4.3) % Baso % (Auto) 0.5 (0.0-1.8) % Lymph # 2.2 (1.2-5.4) K/mm3 [place] # 0.7 (0.0-0.8) K/mm3 Eos # 0.2 (0.0-0.4) K/mm3 Baso # 0.0 (0.0-0.1) K/mm3 Seg Neutrophils % 49.7 (40.0-70.0) % Seg Neutrophils # 3.0 (1.8-7.7) K/mm3 Sodium 136 L (137-145) mmol/L Potassium 4.1 (3.6-5.0) mmol/L Chloride 98.6 (98-107) mmol/L Carbon Dioxide 26 (22-30) mmol/L Anion Gap 16 mmol/L BUN 11 (9-20) mg/dL Creatinine 1.0 (0.8-1.3) mg/dL Estimated GFR > 60 ml/min BUN/Creatinine Ratio 11 % Glucose 86 (75-100) mg/dL Calcium 9.6 (8.4-10.2) mg/dL Total Bilirubin 0.50 (0.1-1.2) mg/dL AST 30 (5-40) units/L ALT 39 (7-56) units/L Alkaline Phosphatase 76 (35-129) units/L Total Protein 7.5 (6.3-8.2) g/dL Albumin 4.5 (3.9-5) g/dL Albumin/Globulin Ratio 1.5 % Lipase 32 (13-60) units/L - Medical Decision Making Patient is a 29-year-old male presents emergency room with complaints of left- sided abdominal pain that began 4 days ago. He has associated diarrhea. He denies any fever, vomiting, hematochezia, hematemesis, melena, pus in the stool, rectal pain. He states that in November 2019 he was diagnosed with Crohn's. He states that he is seeing a GI doctor but has not yet had a colonoscopy. Patient states that he is currently on Bentyl, meloxicam, amitriptyline, and another medication for GERD which he cannot remember the name. He states that he also takes Topamax for seizures but denies any recent seizure. He is not currently on any steroids. He denies any medication allergies. VSS. on exam: Mild left-sided abdominal tenderness palpation, no guarding, no rebound, no rigidity, normal bowel sounds, no peritoneal signs. Labs are normal. Patient is afebrile, no tachycardia. Patient given 1 L normal saline, Zofran, morphine and symptoms improved and patient was feeling much better. Patient is able to tolerate p.o. intake without difficulty. Patient will be covered with medications for Crohn's flare/colitis. Advised patient that he would need a repeat abdominal exam in 2 days. Discussed strict return precautions with patient. Advised patient Please take medication as prescribed. Increase your water intake. Eat a bland liquid diet and slowly advance your diet as tolerated. Avoid anything sugary or greasy. Follow-up with your primary care doctor. Follow-up with your GI doctor. Return to emergency room immediately for any new or worsening symptoms including but not limited to worsening abdominal pain, constant vomiting or diarrhea, blood or pus in the stool, fever, unable to tolerate by mouth intake, etc. Critical care attestation.: If time is entered above; I have spent that time in minutes in the direct care of this critically ill patient, excluding procedure time. ED Disposition Clinical Impression: Abdominal pain Qualifiers: Abdominal location: left upper quadrant Qualified Code(s): R10.12 - Left upper quadrant pain Diarrhea Qualifiers: Diarrhea type: unspecified type Qualified Code(s): R19.7 - Diarrhea, unsp ecified Disposition: - TO HOME OR SELFCARE Is pt being admited?: No Does the pt Need Aspirin: No Condition: Stable Instructions: Crohn Disease (ED), Acute Diarrhea (ED), Abdominal Pain (ED) Additional Instructions: Please take medication as prescribed. Increase your water intake. Eat a bland liquid diet and slowly advance your diet as tolerated. Avoid anything sugary or greasy. Follow-up with your primary care doctor. Follow-up with your GI doctor. Return to emergency room immediately for any new or worsening symptoms including but not limited to worsening abdominal pain, constant vomiting or diarrhea, blood or pus in the stool, fever, unable to tolerate by mouth intake, etc. Prescriptions: Ciprofloxacin HCl [Ciprofloxacin TAB] 500 mg PO BID 7 Days #14 tab metroNIDAZOLE [Flagyl] 500 mg PO BID 7 Days #14 tab Prednisone [predniSONE 10 mg (6-Day Pack, 21 Tabs)] 10 mg PO .TAPER #1 tab.ds.pk Acetaminophen/Codeine [Tylenol /Codeine # 3 tab] 1 tab PO Q6H PRN #10 tab PRN Reason: Pain , Severe (7-10) Referrals: PRIMARY CARE,MD [Primary Care Provider] - 2-3 Days your, GI doctor [Other] - 2-3 Days Forms: Work/School Release Form(ED) Time of Disposition: 18:05 Print Language: SOU[place]
== END 2019-10-18 18:33 | disposition home or self-care (01) ==
LOC: ED 15:02
DX: R10.9 Unspecified abdominal pain (principal); R19.7 Diarrhea, unspecified; J45.909 Unspecified asthma, uncomplicated; Z79.899 Other long term (current) drug therapy; Z91.018 Allergy to other foods
CPT/HCPCS: 36415; 80053; 83690; 85025; 96361; 96374; 96375; 99283; J2270; J2405; J7030

== ENCOUNTER 2019-12-17 19:01 | Emergency (ER) | payer SELFPAY ==
[2019-12-17] MEDS ORDERED: ACETAMINOPHEN 325 MG TAB PO ONE (20:30)
[2019-12-17] MEDS ORDERED: ACETAMINOPHEN 325 MG TAB ONE (20:31)
[2019-12-17 20:41] VITALS: BP 139/87
--- NOTE | 2019-12-17 22:42 | Emergency Department Report ---
ED ENT HPI - General Chief complaint: Sore Throat Stated complaint: FEVER,BODY PAIN, SORE THROAT Time Seen by Provider: 12/17/19 22:35 Source: patient Mode of arrival: Ambulatory Limitations: No Limitations - History of Present Illness Initial comments: The patient was evaluated in the emergency department for symptoms described in the history of present illness. He/she was evaluated in the context of the global COVID-19 pandemic, which necessitated consideration that the patient might be at risk for infection with the virus that causes COVID-19. Institutional protocols and algorithms that pertain to the evaluation of patients at risk for COVID-19 are in a state of rapid change based on information released by regulatory bodies including the CDC and federal and state organizations. These policies and algorithms were followed during the patient's care in the emergency department. Please note that these policies, procedures and recommendations changed on a rapid basis. 29-year-old -[place] male presents to the emergency room for a few day history of body aches sore throat headache. Patient has not taken anything for symptoms. Patient admits to nausea but no vomiting in the last 2 days. Patient denies any cough but admits to the headache. Patient states that he has been feeling warm and having chills. It was noted that patient had a elevated temperature as well as elevated heart rate. MD complaint: sore throat Onset/Timin -: days(s) Location: throat Severity: severe Quality: aching, sharp Consistency: constant Associated Symptoms: fever, pain with swallowing, sore throat - Related Data Previous Rx's Medication Instructions Recorded Last Taken Type Acetaminophen/Codeine [Tylenol 1 tab PO Q6H PRN #20 tablet 12/09/18 Unknown Rx /Codeine # 3 tab] Oseltamivir [Tamiflu] 75 mg PO BID 5 Days #10 cap 01/14/19 Unknown Rx cephALEXin [Keflex] 500 mg PO Q8HR 10 Days #30 cap 04/01/19 Unknown Rx traMADoL [Ultram] 50 mg PO Q6HR PRN #12 tablet 04/01/19 Unknown Rx Acetaminophen/Codeine [Tylenol 1 tab PO Q6H PRN #10 tab 10/18/19 Unknown Rx /Codeine # 3 tab] Ciprofloxacin HCl [Ciprofloxacin 500 mg PO BID 7 Days #14 tab 10/18/19 Unknown Rx TAB] Prednisone [predniSONE 10 mg 10 mg PO .TAPER #1 tab.ds.pk 10/18/19 Unknown Rx (6-Day Pack, 21 Tabs)] metroNIDAZOLE [Flagyl] 500 mg PO BID 7 Days #14 tab 10/18/19 Unknown Rx Amoxicillin [Amoxicillin TAB] 875 mg PO BID 7 Days #14 tablet 12/17/19 Unknown Rx Ibuprofen [Motrin 600 MG tab] 600 mg PO Q8H PRN #21 tablet 12/17/19 Unknown Rx Allergies Allergy/AdvReac Type Severity Reaction Status Date / Time blueberry [Blueberry] Allergy Hives Verified 10/18/19 15:08 mushroom Allergy Hives Verified 10/18/19 15:08 pineapple [Pineapple] Allergy Hives Verified 10/18/19 15:08 raspberry [Raspberry] Allergy Hives Verified 10/18/19 15:08 ED Dental HPI - General Chief complaint: Sore Throat Stated complaint: FEVER,BODY PAIN, SORE THROAT Time Seen by Provider: 12/17/19 22:35 Source: patient Mode of arrival: Ambulatory Limitations: No Limitations - Related Data Previous Rx's Medication Instructions Recorded Last Taken Type Acetaminophen/Codeine [Tylenol 1 tab PO Q6H PRN #20 tablet 12/09/18 Unknown Rx /Codeine # 3 tab] Oseltamivir [Tamiflu] 75 mg PO BID 5 Days #10 cap 01/14/19 Unknown Rx cephALEXin [Keflex] 500 mg PO Q8HR 10 Days #30 cap 04/01/19 Unknown Rx traMADoL [Ultram] 50 mg PO Q6HR PRN #12 tablet 04/01/19 Unknown Rx Acetaminophen/Codeine [Tylenol 1 tab PO Q6H PRN #10 tab 10/18/19 Unknown Rx /Codeine # 3 tab] Ciprofloxacin HCl [Ciprofloxacin 500 mg PO BID 7 Days #14 tab 10/18/19 Unknown Rx TAB] Prednisone [predniSONE 10 mg 10 mg PO .TAPER #1 tab.ds.pk 10/18/19 Unknown Rx (6-Day Pack, 21 Tabs)] metroNIDAZOLE [Flagyl] 500 mg PO BID 7 Days #14 tab 10/18/19 Unknown Rx Amoxicillin [Amoxicillin TAB] 875 mg PO BID 7 Days #14 tablet 12/17/19 Unknown Rx Ibuprofen [Motrin 600 MG tab] 600 mg PO Q8H PRN #21 tablet 12/17/19 Unknown Rx Allergies Allergy/AdvReac Type Severity Reaction Status Date / Time blueberry [Blueberry] Allergy Hives Verified 10/18/19 15:08 mushroom Allergy Hives Verified 10/18/19 15:08 pineapple [Pineapple] Allergy Hives Verified 10/18/19 15:08 raspberry [Raspberry] Allergy Hives Verified 10/18/19 15:08 ED Review of Systems ROS: Stated complaint: FEVER,BODY PAIN, SORE THROAT Other details as noted in HPI Comment: All other systems reviewed and negative ED Past Medical Hx - Past Medical History Hx Hypertension: No Hx CVA: No Hx Heart Attack/AMI: No Hx Congestive Heart Failure: No Hx Diabetes: No Hx Deep Vein Thrombosis: No Hx Pulmonary Embolism: No Hx GERD: No Hx Liver Disease: No Hx Renal Disease: No Hx Sickle Cell Disease: No Hx Arthritis: No Hx Headaches / Migraines: No Hx Seizures: No Hx Kidney Stones: No Hx Psychiatric Treatment: No Hx Asthma: Yes Hx COPD: No Hx Tuberculosis: No Hx Dementia: No Hx HIV: No Additional medical history: Sinus Infections. chron's - Surgical History Hx Coronary Stent: No Hx Open Heart Surgery: No Hx Pacemaker: No Hx Internal Defibrillator: No Hx Cholecystectomy: No Hx Appendectomy: No Hx Breast Surgery: No - Social History Smoking Status: Current Every Day Smoker - Medications Home Medications: Home Medications Medication Instructions Recorded Confirmed Last Taken Type Acetaminophen/Codeine [Tylenol 1 tab PO Q6H PRN #20 tablet 12/09/18 Unknown Rx /Codeine # 3 tab] Oseltamivir [Tamiflu] 75 mg PO BID 5 Days #10 cap 01/14/19 Unknown Rx cephALEXin [Keflex] 500 mg PO Q8HR 10 Days #30 cap 04/01/19 Unknown Rx traMADoL [Ultram] 50 mg PO Q6HR PRN #12 tablet 04/01/19 Unknown Rx Acetaminophen/Codeine [Tylenol 1 tab PO Q6H PRN #10 tab 10/18/19 Unknown Rx /Codeine # 3 tab] Ciprofloxacin HCl [Ciprofloxacin 500 mg PO BID 7 Days #14 tab 10/18/19 Unknown Rx TAB] Prednisone [predniSONE 10 mg 10 mg PO .TAPER #1 tab.ds.pk 10/18/19 Unknown Rx (6-Day Pack, 21 Tabs)] metroNIDAZOLE [Flagyl] 500 mg PO BID 7 Days #14 tab 10/18/19 Unknown Rx Amoxicillin [Amoxicillin TAB] 875 mg PO BID 7 Days #14 tablet 12/17/19 Unknown Rx Ibuprofen [Motrin 600 MG tab] 600 mg PO Q8H PRN #21 tablet 12/17/19 Unknown Rx ED Physical Exam - General Limitations: No Limitations General appearance: alert, in no apparent distress - Head Head exam: Present: atraumatic, normocephalic - Eye Eye exam: Present: normal appearance - ENT ENT exam: Present: mucous membranes moist - Expanded ENT Exam Expanded Throat exam: Positive: tonsillar erythema, tonsillomegaly, tonsillar exudate - Neck Neck exam: Present: normal inspection, full ROM - Respiratory Respiratory exam: Absent: accessory muscle use - Cardiovascular Cardiovascular Exam: Present: regular rate, normal rhythm - GI/Abdominal GI/Abdominal exam: Present: soft, normal bowel sounds - Neurological Exam Neurological exam: Present: alert, oriented X3, normal gait - Psychiatric Psychiatric exam: Present: normal affect, normal mood - Skin Skin exam: Present: warm, dry, intact, normal color. Absent: rash ED Course Vital Signs 12/17/19 20:32 Temperature 102.7 F H Pulse Rate 111 H Respiratory 16 Rate Blood Pressure 139/87 O2 Sat by Pulse 97 Oximetry ED Medical Decision Making - Medical Decision Making 29-year-old -Malays[place] male presents to the emergency room for a few day history of body aches sore throat headache. Patient has not taken anything for symptoms. Patient admits to nausea but no vomiting in the last 2 days. Patient denies any cough but admits to the headache. Patient states that he has been feeling warm and having chills. It was noted that patient had a elevated temperature as well as elevated heart rate. Patient will be treated for pharyngitis with amoxicillin and ibuprofen instructed to increase his fluid intake. Critical care attestation.: If time is entered above; I have spent that time in minutes in the direct care of this critically ill patient, excluding procedure time. ED Disposition Clinical Impression: Pharyngitis Disposition: DC-01 TO HOME OR SELFCARE Is pt being admited?: No Does the pt Need Aspirin: No Condition: Stable Instructions: Pharyngitis, [id number] Additional Instructions: Complete antibiotics as prescribed take pain medication as needed. Increase your water intake advance your diet as tolerated. Prescriptions: Amoxicillin [Amoxicillin TAB] 875 mg PO BID 7 Days #14 tablet Ibuprofen [Motrin 600 MG tab] 600 mg PO Q8H PRN #21 tablet PRN Reason: Pain Referrals: PRIMARY CARE, [Primary Care Provider] - 3-5 Days GAVINO GARCIA MD [Staff Physician] - 3-5 Days Forms: Work/School Release Form(ED)
== END 2019-12-17 23:00 | disposition home or self-care (01) ==
LOC: ED 19:01
DX: J02.9 Acute pharyngitis, unspecified (principal); J45.909 Unspecified asthma, uncomplicated; F17.200 Nicotine dependence, unspecified, uncomplicated; Z79.899 Other long term (current) drug therapy; Z88.8 Allergy status to other drugs, medicaments and biological substances
CPT/HCPCS: 87430; 99283

== ENCOUNTER 2020-05-20 22:39 | Emergency (ER) | payer SELFPAY | END 2020-05-20 22:45 | disposition left against medical advice (07) | LOC: ED 22:39 | DX: Z53.21 Procedure and treatment not carried out due to patient leaving prior to being seen by health care provider (principal) ==

== ENCOUNTER 2021-02-11 01:28 | Emergency (ER) | payer SELFPAY ==
[2021-02-11] MEDS ORDERED: MORPHINE 4 MG/1 ML INJ IV ONE (05:08)
[2021-02-11] MEDS ORDERED: FAMOTIDINE 20 MG/2 ML INJ IV ONE (05:08)
[2021-02-11] MEDS ORDERED: ONDANSETRON 4 MG/2 ML INJ IV ONE (05:08)
[2021-02-11] MEDS ORDERED: SODIUM CHLORIDE 0.9% 1000 ML 1,000 ML IV ONE (05:09)
[2021-02-11 05:28] LABS: Bilirubin,Urine NEG (Negative); Blood,Urine NEG (Negative); Color,Urine Yellow (Yellow); Mucus,Urine FEW /HPF; Protein,Urine <15 mg/dL mg/dL (Negative); RBC,Urine < 1.0 /HPF (0.0-6.0); Urobilinogen,Urine < 2.0 mg/dL (<2.0); WBC,Urine < 1.0 /HPF (0.0-6.0)
[2021-02-11 05:56] LABS: Basophils % (Auto) 0.5 % (0.0-1.8); Eosinophils # (Auto) 0.2 K/mm3 (0.0-0.4); Eosinophils % (Auto) 2.7 % (0.0-4.3); Lymphocytes # (Auto) 2.7 K/mm3 (1.2-5.4); Lymphocytes % (Auto) 37.8 % (13.4-35.0); Mean Corpuscular HGB Conc 31 % (32-34); Mean Corpuscular Volume 74 fl (84-94); Monocytes # (Auto) 0.7 K/mm3 (0.0-0.8); Monocytes % (Auto) 9.3 % (0.0-7.3); Platelet Count 290 K/mm3 (140-440); Red Blood Count 6.35 M/mm3 (3.65-5.03); Red Cell Distribution Width 14.2 % (13.2-15.2)
[2021-02-11 06:04] LABS: Alanine Aminotransferase 20 units/L (7-56); Albumin 4.3 g/dL (3.9-5); BUN/Creatinine Ratio 12; Blood Urea Nitrogen 13 mg/dL (9-20); Hemolysis Index 9
--- NOTE | 2021-02-11 06:07 | Emergency Department Report ---
ED Abdominal Pain HPI - General Chief Complaint: Abdominal Pain Stated Complaint: NAUSEA VOMITING ABDOMINAL PAIN Time Seen by Provider: 02/11/21 05:57 Source: patient Mode of arrival: Ambulatory Limitations: No Limitations - History of Present Illness Initial Comments: Patient is a 31-year-old -[place] male with a history of Crohn's disease and seizures who presents to the ED with complaint of acute onset persistent severe left lower quadrant abdominal pain with intractable nausea and vomiting and diarrhea for the last 1 week, worse in the last 3 days. Patient states that he has not been able to sleep in the last 8 hours because of worsening left lower quadrant pain and believe that it could be a flare of his chronic Crohn's disease but came to the ED for evaluation. Patient denies fever, chills, chest pain, shortness of breath, hematochezia, hematemesis, dysuria, urinary frequency and urgency, testicular pain, traumatic injury or heavy lifting. MD Complaint: abdominal pain (Left lower quadrant abdominal pain), other (Nausea and vomiting and diarrhea) -: Sudden, week(s) (1) Location: LLQ, suprapubic Radiation: LLQ, suprapubic Migration to: no migration Severity scale (0 -10): 7 Quality: cramping, aching, sharp Consistency: intermittent Improves With: nothing Worsens With: nothing Context: other (Chronic Crohn's disease) Associated Symptoms: denies other symptoms, nausea, vomiting, diarrhea, anorexia. denies: fever, chills, constipation, dysuria, hematemesis, hematochezia, melena, hematuria, syncope, other - Related Data Previous Rx's Medication Instructions Recorded Last Taken Type Acetaminophen/Codeine [Tylenol 1 tab PO Q6H PRN #20 tablet 12/09/18 Unknown Rx /Codeine # 3 tab] Oseltamivir [Tamiflu] 75 mg PO BID 5 Days #10 cap 01/14/19 Unknown Rx traMADoL [Ultram] 50 mg PO Q6HR PRN #12 tablet 04/01/19 Unknown Rx Acetaminophen/Codeine [Tylenol 1 tab PO Q6H PRN #10 tab 10/18/19 Unknown Rx /Codeine # 3 tab] Prednisone [predniSONE 10 mg 10 mg PO .TAPER #1 tab.ds.pk 10/18/19 Unknown Rx (6-Day Pack, 21 Tabs)] Ibuprofen [Motrin 600 MG tab] 600 mg PO Q8H PRN #21 tablet 02/11/21 Unknown Rx Ondansetron [Zofran ODT TAB] 8 mg PO Q8HR PRN #20 tab.rapdis 02/11/21 Unknown Rx Allergies Allergy/AdvReac Type Severity Reaction Status Date / Time blueberry [Blueberry] Allergy Hives Verified 10/18/19 15:08 mushroom Allergy Hives Verified 10/18/19 15:08 pineapple [Pineapple] Allergy Hives Verified 10/18/19 15:08 raspberry [Raspberry] Allergy Hives Verified 10/18/19 15:08 ED Review of Systems ROS: Stated complaint: NAUSEA VOMITING ABDOMINAL PAIN Other details as noted in HPI Constitutional: denies: chills, fever Eyes: denies: eye pain, eye discharge, vision change ENT: denies: ear pain, throat pain Respiratory: denies: cough, shortness of breath, wheezing Cardiovascular: denies: chest pain, palpitations Endocrine: no symptoms reported Gastrointestinal: abdominal pain (Left lower quadrant abdominal pain), nausea, vomiting, diarrhea Genitourinary: denies: urgency, dysuria Musculoskeletal: denies: back pain, joint swelling, arthralgia Skin: denies: rash, lesions Neurological: denies: headache, weakness, paresthesias Psychiatric: denies: anxiety, depression Hematological/Lymphatic: denies: easy bleeding, easy bruising ED Past Medical Hx - Past Medical History Previous Medical History?: Yes Hx Hypertension: No Hx CVA: No Hx Heart Attack/AMI: No Hx Congestive Heart Failure: No Hx Diabetes: No Hx Deep Vein Thrombosis: No Hx Pulmonary Embolism: No Hx GERD: No Hx Liver Disease: No Hx Renal Disease: No Hx Sickle Cell Disease: No Hx Arthritis: No Hx Headaches / Migraines: No Hx Seizures: Yes Hx Kidney Stones: No Hx Psychiatric Treatment: No Hx Asthma: Yes Hx COPD: No Hx Tuberculosis: No Hx Dementia: No Hx HIV: No Additional medical history: Sinus Infections. chron's - Surgical History Past Surgical History?: No Hx Coronary Stent: No Hx Open Heart Surgery: No Hx Pacemaker: No Hx Internal Defibrillator: No Hx Cholecystectomy: No Hx Appendectomy: No Hx Breast Surgery: No - Social History Smoking Status: Current Every Day Smoker - Medications Home Medications: Home Medications Medication Instructions Recorded Confirmed Last Taken Type Acetaminophen/Codeine [Tylenol 1 tab PO Q6H PRN #20 tablet 12/09/18 Unknown Rx /Codeine # 3 tab] Oseltamivir [Tamiflu] 75 mg PO BID 5 Days #10 cap 01/14/19 Unknown Rx traMADoL [Ultram] 50 mg PO Q6HR PRN #12 tablet 04/01/19 Unknown Rx Acetaminophen/Codeine [Tylenol 1 tab PO Q6H PRN #10 tab 10/18/19 Unknown Rx /Codeine # 3 tab] Prednisone [predniSONE 10 mg 10 mg PO .TAPER #1 tab.ds.pk 10/18/19 Unknown Rx (6-Day Pack, 21 Tabs)] Ibuprofen [Motrin 600 MG tab] 600 mg PO Q8H PRN #21 tablet 02/11/21 Unknown Rx Ondansetron [Zofran ODT TAB] 8 mg PO Q8HR PRN #20 tab.rapdis 02/11/21 Unknown Rx ED Physical Exam - General Limitations: No Limitations General appearance: alert, in no apparent distress - Head Head exam: Present: atraumatic, normocephalic, normal inspection - Eye Eye exam: Present: normal appearance, PERRL, EOMI Pupils: Present: normal accommodation - ENT ENT exam: Present: normal exam, normal orophraynx, mucous membranes moist, TM's normal bilaterally, normal external ear exam - Neck Neck exam: Present: normal inspection, full ROM - Respiratory Respiratory exam: Present: normal lung sounds bilaterally. Absent: respiratory distress, wheezes, rales, rhonchi, chest wall tenderness, accessory muscle use, decreased breath sounds, prolonged expiratory - Cardiovascular Cardiovascular Exam: Present: regular rate, normal rhythm, normal heart sounds. Absent: systolic murmur, diastolic murmur, rubs, gallop - GI/Abdominal GI/Abdominal exam: Present: soft, tenderness (Palpable left lower quadrant tenderness), normal bowel sounds. Absent: guarding, rebound, hyperactive bowel sounds, organomegaly, mass - Extremities Exam Extremities exam: Present: normal inspection, full ROM, normal capillary refill - Back Exam Back exam: Present: normal inspection, full ROM. Absent: tenderness, CVA tenderness (R), CVA tenderness (L), muscle spasm, paraspinal tenderness, vertebral tenderness - Neurological Exam Neurological exam: Present: alert, oriented X3, CN II-XII intact, normal gait, reflexes normal - Psychiatric Psychiatric exam: Present: normal affect, normal mood - Skin Skin exam: Present: warm, dry, intact, normal color. Absent: rash ED Course Vital Signs 02/11/21 02/11/21 02/11/21 01:31 05:20 07:46 Temperature 98.4 F 98.5 F Pulse Rate 83 80 Respiratory 18 16 16 Rate Blood Pressure 141/99 Blood Pressure 125/89 [Right] O2 Sat by Pulse 97 97 Oximetry ED Medical Decision Making - Lab Data Result diagrams: 02/11/21 05:30 02/11/21 05:30 - Radiology Data [facility] [place] [address] [id number] Cat Scan Report Signed Patient: PAIGE HART MR# : [id number] : 1990 Acct:[id number] Age/Sex: 31 / M ADM Date: 02/11/21 Loc: ED Attending Dr: Ordering Physician: NINA THOMPSON Date of Service: 02/11/21 Procedure(s): CT abdomen pelvis w con Accession Number(s): [id number] cc: NINA THOMPSON CT abdomen pelvis w con INDICATION / CLINICAL INFORMATION: Patient complains of L.L.Q. abdominal pain. TECHNIQUE: Axial CT imaging of abdomen and pelvis was obtained with 100 mL Omnipaque 300 IV contrast. Coronal and sagittal reformatted imaging obtained and reviewed. All CT scans at this location are performed using CT dose reduction for ALARA by means of automated exposure control. COMPARISON: CT abdomen/pelvis 12/07/2018 FINDINGS: CT abdomen with IV contrast amount in straight normal appearance of the liver, spleen, pancreas, kidneys, and adrenal glands. Gallbladder is present and without obvious abnormality. No biliary dilatation. Abdominal aorta is normal. CT pelvis with contrast does not demonstrate mass, free fluid, or focal inflammatory change. The urinary bladder and prostate gland are grossly unremarkable. A normal appendix is present in the right lower quadrant. Source for the patient's left lower quadrant pain is not identified. GI tract is grossly normal diffusely. Visualized lung bases are clear. No significant acute osseous abnormality. IMPRESSION: 1. No significant abnormality within the abdomen or pelvis. I see no abnormality to account for the patient's complaint of left lower quadrant pain. Signer Name: Nikia Shelley MD Signed: 02/11/2021 6:43 AM Workstation Name: [id number] Transcribed By: Dictated By: Nikia Shelley MD Electronically Authenticated By: Nikia Shelley MD Signed Date/Time: 02/11/21642 DD/ 8 TD/TT: - Medical Decision Making This is a 31-year-old -[place] male with a history of Crohn's disease and seizures who presents to the ED with complaint of acute onset persistent severe left lower quadrant abdominal pain with intractable nausea and vomiting and diarrhea for the last 1 week, worse in the last 3 days. Patient states that he has not been able to sleep in the last 8 hours because of worsening left lower quadrant pain and believe that it could be a flare of his chronic Crohn's disease but came to the ED for evaluation. In the ED, patient is alert and oriented x3 and is not in any distress. Patient was treated for pain in the ED, also given normal saline 1 L IV bolus x1. Lab test results are pending and imaging reports also pending. Patient care was transferred to Dr. Montez who shall review all lab test results and imaging reports and disposition the patient accordingly. - Differential Diagnosis Crohn's disease; diverticulitis; colitis; kidney stone; appendicitis; UTI Critical care attestation.: If time is entered above; I have spent that time in minutes in the direct care of this critically ill patient, excluding procedure time. ED Disposition Clinical Impression: Acute abdominal pain in left lower quadrant, Nausea, vomiting and diarrhea Disposition: HOME / SELF CARE / HOMELESS Is pt being admited?: No Does the pt Need Aspirin: No Condition: Stable Instructions: Food Choices to Help Relieve Diarrhea, Adult, Abdominal Pain, Adult, [id number], Nausea and Vomiting, Adult Additional Instructions: Have a bland diet. Drink any water. Return for problems. Follow-up with your regular doctor and your GI doctor. Prescriptions: Ibuprofen [Motrin 600 MG tab] 600 mg PO Q8H PRN #21 tablet PRN Reason: Pain Ondansetron [Zofran ODT TAB] 8 mg PO Q8HR PRN #20 tab.rapdis PRN Reason: Nausea Referrals: PRIMARY CARE, [Primary Care Provider] - 3-5 Days
[2021-02-11 06:15] LABS: Hematocrit 47.1 % (35.5-45.6); Hemoglobin 14.6 gm/dl (11.8-15.2)
--- NOTE | 2021-02-11 06:48 | Cat Scan Report ---
CT abdomen pelvis w con INDICATION / CLINICAL INFORMATION: Patient complains of L.L.Q. abdominal pain. TECHNIQUE: Axial CT imaging of abdomen and pelvis was obtained with 100 mL Omnipaque 300 IV contrast. Coronal an d sagittal reformatted imaging obtained and reviewed. All CT scans at this location are performed us ing CT dose reduction for ALARA by means of automated exposure control. COMPARISON: CT abdomen/pelvis 12/07/2018 FINDINGS: CT abdomen with IV contrast amount in straight normal appearance of the liver, spleen, pancreas, kidn eys, and adrenal glands. Gallbladder is present and without obvious abnormality. No biliary dilatatio n. Abdominal aorta is normal. CT pelvis with contrast does not demonstrate mass, free fluid, or focal inflammatory change. The urin virgilio bladder and prostate gland are grossly unremarkable. A normal appendix is present in the right lo wer quadrant. Source for the patient's left lower quadrant pain is not identified. GI tract is grossly normal diffusely. Visualized lung bases are clear. No significant acute osseous abnormality. IMPRESSION: 1. No significant abnormality within the abdomen or pelvis. I see no abnormality to account for the p atient's complaint of left lower quadrant pain. Signer Name: Nikia Shelley MD Signed: 02/11/2021 6:43 AM Workstation Name: [id number]
--- NOTE | 2021-02-11 07:01 | Event Note ---
Date of service: 02/11/21 Face to Face: For this encounter I have reviewed the PA/[employer] documentation, treatment plan, medical decision making, and I had face to face time with this patient. Patient presented with left lower quadrant pain. He has a history of of inflammatory bowel disease. There was concern that this was an exacerbation versus abscess. Patient had no trauma associated with this. On exam, patient was treated but feeling better. He had no significant tenderness in the left lower abdomen. No rebound or guarding. CT scan was noted. Labs reviewed. Patient is up from discharge. There was no evidence of tumor or mass. There is no evidence of abscess or perforation. He did not have intractable pain. There is no source of pain for his presentation that would not be GI related. In other words it was no evidence of kidney stone or urinary tract infection.
[2021-02-11 07:53] VITALS: BP 125/89
== END 2021-02-11 07:53 | disposition home or self-care (01) ==
LOC: ED 01:28
DX: R10.32 Left lower quadrant pain (principal); R11.2 Nausea with vomiting, unspecified; R19.7 Diarrhea, unspecified; F17.200 Nicotine dependence, unspecified, uncomplicated; Z91.018 Allergy to other foods
CPT/HCPCS: 36415; 74177; 80053; 81001; 83690; 85025; 96361; 96374; 96375; 99284; J2270; J2405; J3490; J7030; Q9967; Q0162

== ENCOUNTER 2021-05-30 23:46 | Emergency (ER) | payer OTHER ==
--- NOTE | 2021-05-31 08:31 | Emergency Department Report ---
Minor Respiratory - HPI Chief Complaint: Sore Throat Stated Complaint: THROAT SWELLING Time Seen by Provider: 05/31/21 08:29 Duration: 3 Days Pain Location: Throat Severity: mild Minor Respiratory: Yes Sore Throat, Yes Able to Tolerate Fluids, No Rhinorrhea, No Ear Pain, No Cough, No Sick Contacts, No Hemoptysis, No Chest Pain, No Shortness of Breath, No Fever Other History: 31-year-old male comes to the emergency room complaining of sore throat x1 day. States that he had white spots on his throat. Denies fever or chills. No cough. ABCs intact. ED Review of Systems ROS: Stated complaint: THROAT SWELLING Other details as noted in HPI Comment: All other systems reviewed and negative ED Past Medical Hx - Past Medical History Previous Medical History?: Yes Hx Hypertension: No Hx CVA: No Hx Heart Attack/AMI: No Hx Congestive Heart Failure: No Hx Diabetes: No Hx Deep Vein Thrombosis: No Hx Pulmonary Embolism: No Hx GERD: No Hx Liver Disease: No Hx Renal Disease: No Hx Sickle Cell Disease: No Hx Arthritis: No Hx Headaches / Migraines: No Hx Seizures: Yes Hx Kidney Stones: No Hx Psychiatric Treatment: No Hx Asthma: Yes Hx COPD: No Hx Tuberculosis: No Hx Dementia: No Hx HIV: No Additional medical history: Sinus Infections. chron's - Surgical History Past Surgical History?: No Hx Coronary Stent: No Hx Open Heart Surgery: No Hx Pacemaker: No Hx Internal Defibrillator: No Hx Cholecystectomy: No Hx Appendectomy: No Hx Breast Surgery: No - Family History Family history: no significant - Social History Smoking Status: Current Every Day Smoker Substance Use Type: Alcohol - Medications Home Medications: Home Medications Medication Instructions Recorded Confirmed Last Taken Type Acetaminophen/Codeine [Tylenol 1 tab PO Q6H PRN #20 tablet 12/09/18 Unknown Rx /Codeine # 3 tab] Oseltamivir [Tamiflu] 75 mg PO BID 5 Days #10 cap 01/14/19 Unknown Rx traMADoL [Ultram] 50 mg PO Q6HR PRN #12 tablet 04/01/19 Unknown Rx Acetaminophen/Codeine [Tylenol 1 tab PO Q6H PRN #10 tab 10/18/19 Unknown Rx /Codeine # 3 tab] Prednisone [predniSONE 10 mg 10 mg PO .TAPER #1 tab.ds.pk 10/18/19 Unknown Rx (6-Day Pack, 21 Tabs)] Ibuprofen [Motrin 600 MG tab] 600 mg PO Q8H PRN #21 tablet 02/11/21 Unknown Rx Ondansetron [Zofran ODT TAB] 8 mg PO Q8HR PRN #20 tab.rapdis 02/11/21 Unknown Rx Amoxicillin [Trimox CAP] 500 mg PO BID #20 capsule 05/31/21 Unknown Rx methylPREDNISolone [Medrol 4MG 4 mg PO FS #1 tab.ds.pk 05/31/21 Unknown Rx DOSEPAK (21 tabs)] Minor Respiratory Exam - Exam General: Vital signs noted. No distress. Alert and acting appropriately. HEENT: Yes Pharyngeal Erythema, Yes Pharyngeal Exudates (Uvula inflamed), Yes Moist Mucous Membranes, No Rhinorrhea, No Conjuctival Injection, No Frontal Tenderness, No Maxillary Tenderness Ear: Neither TM Bulge, Neither TM Erythema, Neither EAC Pain, Neither EAC Discharge Neck: Yes Supple, No Adenopathy Lungs: Yes Good Air Exchange, No Wheezes, No Ronchi, No Stridor, No Cough, No Labored Respirations, No Retractions, No Use of Accessory Muscles, No Other Abnormal Lung Sounds Heart: Yes Regular, No Murmur Abdomen: Yes Normal Bowel Sounds, No Tenderness, No Peritoneal Signs Skin: No Rash, No Edema Neurologic: Alert and oriented, no deficits. Musculoskeletal: Unremarkable. ED Course Vital Signs 05/31/21 00:03 Temperature 98.4 F Pulse Rate 73 Respiratory 18 Rate Blood Pressure 142/96 O2 Sat by Pulse 97 Oximetry ED Medical Decision Making - Medical Decision Making Vital Signs 05/31/21 05/31/21 00:03 09:13 Temperature 98.4 F 97.4 F L Pulse Rate 73 85 Respiratory 18 16 Rate Blood Pressure 142/96 Blood Pressure 128/74 [Left] O2 Sat by Pulse 97 99 Oximetry Patient taking p.o. Vital signs are stable. No abscess. No Ludewig's. No trismus. Patient being discharged home with discharge plan of care including diet, activity, medications and follow-up. He verbalizes understanding of plan of care. - Differential Diagnosis URI Critical care attestation.: If time is entered above; I have spent that time in minutes in the direct care of this critically ill patient, excluding procedure time. ED Disposition Clinical Impression: Uvulitis Disposition: HOME / SELF CARE / HOMELESS Is pt being admited?: No Does the pt Need Aspirin: No Condition: Stable Instructions: Pharyngitis, [id number] Additional Instructions: Medication as ordered today Follow-up with PCP referral below Motrin or Tylenol for pain Prescriptions: methylPREDNISolone [Medrol 4MG DOSEPAK (21 tabs)] 4 mg PO FS #1 tab.ds.pk Amoxicillin [Trimox CAP] 500 mg PO BID #20 capsule Referrals: GAVINO GARCIA MD [Primary Care Provider] - 3-5 Days Time of Disposition: 08:30
[2021-05-31 09:14] VITALS: BP 128/74
== END 2021-05-31 09:13 | disposition home or self-care (01) ==
LOC: ED 23:46
DX: K12.2 Cellulitis and abscess of mouth (principal); J02.9 Acute pharyngitis, unspecified; J45.909 Unspecified asthma, uncomplicated; F17.200 Nicotine dependence, unspecified, uncomplicated; Z79.899 Other long term (current) drug therapy; Z72.89 Other problems related to lifestyle; Z88.8 Allergy status to other drugs, medicaments and biological substances; Z91.018 Allergy to other foods
CPT/HCPCS: 99282

== ENCOUNTER 2021-09-04 22:29 | Inpatient (IN) | payer SELFPAY ==
[2021-09-05 01:58] LABS: Albumin 4.2 g/dL (3.9-5); BUN/Creatinine Ratio 8; Blood Urea Nitrogen 8 mg/dL (9-20); Calcium 9.9 mg/dL (8.4-10.2); Hemolysis Index 0
[2021-09-05 02:11] LABS: Alanine Aminotransferase 2119 units/L (7-56)
[2021-09-05] MEDS ORDERED: SODIUM CHLORIDE 0.9% 1000 ML 1,000 ML IV ONE ×2 (06:25→08:15)
[2021-09-05 07:36] LABS: Hematocrit 48.6 % (35.5-45.6); Hemoglobin 16.1 gm/dl (11.8-15.2); Mean Corpuscular HGB Conc 33 % (32-34); Mean Corpuscular Volume 71 fl (84-94); Platelet Count 206 K/mm3 (140-440); Red Blood Count 6.85 M/mm3 (3.65-5.03); Red Cell Distribution Width 15.7 % (13.2-15.2)
[2021-09-05] MEDS ORDERED: CEFEPIME/NS 2 GM/100 ML 2 GM/100 ML BAG IV ONE (08:15)
[2021-09-05] MEDS ORDERED: ONDANSETRON 4 MG/2 ML INJ IV ONE (08:15)
--- NOTE | 2021-09-05 08:54 | Cat Scan Report ---
CT ABDOMEN AND PELVIS WITH CONTRAST INDICATION / CLINICAL INFORMATION: abd pain. TECHNIQUE: Axial CT images were obtained through the abdomen and pelvis after Omnipaque 300, 100 cc I V contrast. All CT scans at this location are performed using CT dose reduction for ALARA by means o f automated exposure control. COMPARISON: CT abdomen and pelvis 02/11/2021. FINDINGS: LOWER CHEST: No significant abnormality. LIVER: No significant abnormality. GALLBLADDER: No significant abnormality. BILE DUCTS: No significant abnormality. PANCREAS: No significant abnormality. SPLEEN: No significant abnormality. ADRENALS: No significant abnormality. RIGHT KIDNEY / URETER: No significant abnormality. LEFT KIDNEY / URETER: No significant abnormality. STOMACH / SMALL BOWEL: No significant abnormality. COLON: No significant abnormality. APPENDIX: Mildly thickened measuring 9 mm. No adjacent inflammation. PERITONEUM: No free fluid. No free air. No fluid collection. LYMPH NODES: No significant adenopathy. VASCULAR STRUCTURES: No significant abnormality. URINARY BLADDER: No significant abnormality. REPRODUCTIVE ORGANS: No significant abnormality. ADDITIONAL FINDINGS: Small fat-containing umbilical hernia. SKELETAL SYSTEM: No significant abnormality. IMPRESSION: 1. Mild thickening of the appendix without adjacent inflammation is nonspecific. Recommend clinical c orrelation. 2. Small fat-containing umbilical hernia. Signer Name: Carlos Vital MD Signed: 09/05/2021 8:49 AM Workstation Name: [email or web address]
[2021-09-05] MEDS ORDERED: metroNIDAZOLE/NS 500 MG/100 ML 500 MG/100 ML BAG IV ONE (09:05)
--- NOTE | 2021-09-05 09:05 | Emergency Department Report ---
ED Abdominal Pain HPI - General Chief Complaint: Nausea/Vomiting/Diarrhea Stated Complaint: EMESIS X2DAYS PUI?: No Time Seen by Provider: 09/05/21 06:23 Source: patient Mode of arrival: Ambulatory Limitations: No Limitations - History of Present Illness Initial Comments: Patient is a 31-year-old male that comes to the emergency room complaining of diffuse abdominal pain associated with nausea and vomiting. He states that he h as been unable to keep anything down since Sunday. Current provider examined the patient at 6:00 this morning. He had been in the ER waiting room all evening. Patient has diffuse abdominal tenderness but it is worse on left upper and left lower quadrant. Patient states that he has been worked up for Crohn's in the past. He sees [facility] for this. After talking with [facility] during patient's ER stay it has been 2 years since patient has seen them. Patient states that he is on 3 medications at home. Amitriptylin. He also states that he takes 1 for seizures. However, he cannot recall the name of that 1 or the third medication that he takes. MD Complaint: abdominal pain -: Gradual, days(s) Location: diffuse Migration to: no migration Severity: severe Severity scale (0 -10): 8 Quality: cramping, aching Consistency: constant Improves With: nothing Worsens With: nothing Associated Symptoms: nausea, vomiting. denies: diarrhea, fever, chills, constipation, dysuria, hematemesis, hematochezia, melena, hematuria, anorexia, syncope - Related Data Allergies Allergy/AdvReac Type Severity Reaction Status Date / Time blueberry [Blueberry] Allergy Hives Verified 09/05/21 00:02 mushroom Allergy Hives Verified 09/05/21 00:02 pineapple [Pineapple] Allergy Hives Verified 09/05/21 00:02 raspberry [Raspberry] Allergy Hives Verified 09/05/21 00:02 ED Review of Systems ROS: Stated complaint: EMESIS X2DAYS Other details as noted in HPI Comment: All other systems reviewed and negative ED Past Medical Hx - Past Medical History Previous Medical History?: Yes Hx Hypertension: No Hx CVA: No Hx Heart Attack/AMI: No Hx Congestive Heart Failure: No Hx Diabetes: No Hx Deep Vein Thrombosis: No Hx Pulmonary Embolism: No Hx GERD: No Hx Liver Disease: No Hx Renal Disease: No Hx Sickle Cell Disease: No Hx Arthritis: No Hx Headaches / Migraines: No Hx Seizures: Yes Hx Kidney Stones: No Hx Psychiatric Treatment: No Hx Asthma: Yes Hx COPD: No Hx Tuberculosis: No Hx Dementia: No Hx HIV: No Additional medical history: Sinus Infections. chron's - Surgical History Past Surgical History?: No Hx Coronary Stent: No Hx Open Heart Surgery: No Hx Pacemaker: No Hx Internal Defibrillator: No Hx Cholecystectomy: No Hx Appendectomy: No Hx Breast Surgery: No - Family History Family history: no significant - Social History Smoking Status: Never Smoker Substance Use Type: Alcohol (OCC) ED Physical Exam - General Limitations: No Limitations General appearance: alert - Head Head exam: Present: atraumatic, normocephalic - Eye Eye exam: Present: normal appearance - ENT ENT exam: Present: mucous membranes moist - Neck Neck exam: Present: normal inspection - Respiratory Respiratory exam: Present: normal lung sounds bilaterally. Absent: respiratory distress - Cardiovascular Cardiovascular Exam: Present: regular rate, normal rhythm. Absent: systolic murmur, diastolic murmur, rubs, gallop - GI/Abdominal GI/Abdominal exam: Present: soft, tenderness, normal bowel sounds - Rectal Rectal exam: Present: deferred - Extremities Exam Extremities exam: Present: normal inspection - Back Exam Back exam: Present: normal inspection - Neurological Exam Neurological exam: Present: alert, oriented X3 - Psychiatric Psychiatric exam: Present: normal affect, normal mood - Skin Skin exam: Present: warm, dry, intact, normal color. Absent: rash ED Course Vital Signs 09/05/21 00:00 Temperature 98.5 F Pulse Rate 71 Respiratory 18 Rate Blood Pressure 130/90 [Left] O2 Sat by Pulse 100 Oximetry ED Medical Decision Making - Lab Data Result diagrams: 09/05/21 14:24 09/05/21 01:00 - Radiology Data Radiology results: report reviewed, image reviewed - Medical Decision Making Lab Results 09/05/21 09/05/21 09/05/21 Range/Units 01:00 06:25 06:42 WBC 6.8 (4.5-11.0) K/mm3 RBC 6.85 H (3.65-5.03) M/mm3 Hgb 16.1 H (11.8-15.2) gm/dl Hct 48.6 H (35.5-45.6) % MCV 71 L (84-94) fl MCH 24 L (28-32) pg MCHC 33 (32-34) % RDW 15.7 H (13.2-15.2) % Plt Count 206 (140-440) K/mm3 Sodium 135 L (137-145) mmol/L Potassium 3.8 (3.6-5.0) mmol/L Chloride 98.0 (98-107) mmol/L Carbon Dioxide 25 (22-30) mmol/L Anion Gap 16 mmol/L BUN 8 L (9-20) mg/dL Creatinine 1.0 (0.8-1.3) mg/dL Estimated GFR > 60 ml/min BUN/Creatinine Ratio 8 % Glucose 94 (75-100) mg/dL Calcium 9.9 (8.4-10.2) mg/dL Total Bilirubin 6.30 H (0.1-1.2) mg/dL AST 1431 H (5-40) units/L ALT 2119 H (7-56) units/L Alkaline Phosphatase 337 H (35-129) units/L Total Protein 7.9 (6.3-8.2) g/dL Albumin 4.2 (3.9-5) g/dL Albumin/Globulin Ratio 1.1 % Lipase (13-60) units/L Urine Color Dark yellow (Yellow) Urine Turbidity Clear (Clear) Urine pH 6.5 (5.0-7.0) Ur Specific [place] 1.025 (1.003-1.030) Urine Protein 100 mg/dl (Negative) mg/dL Urine Glucose (UA) Cl (Negative) mg/dL Urine Ketones Trace (Negative) mg/dL Urine Blood Trace (Negative) Urine Nitrite Negative (Negative) Ur Reducing Substances Not Reportable Urine Bilirubin Color interference (Negative) Urine Ictotest Not Reportable Urine Urobilinogen < 2.0 (<2.0) mg/dL Ur Leukocyte Esterase Negative (Negative) Urine WBC (Auto) 2.0 (0.0-6.0) /HPF Urine RBC (Auto) 2.0 (0.0-6.0) /HPF U Epithel Cells (Auto) < 1.0 (0-13.0) /HPF Urine Mucus 2+ /HPF 09/05/21 Range/Units 06:42 WBC (4.5-11.0) K/mm3 RBC (3.65-5.03) M/mm3 Hgb (11.8-15.2) gm/dl Hct (35.5-45.6) % MCV (84-94) fl MCH (28-32) pg MCHC (32-34) % RDW (13.2-15.2) % Plt Count (140-440) K/mm3 Sodium (137-145) mmol/L Potassium (3.6-5.0) mmol/L Chloride (98-107) mmol/L Carbon Dioxide (22-30) mmol/L Anion Gap mmol/L BUN (9-20) mg/dL Creatinine (0.8-1.3) mg/dL Estimated GFR ml/min BUN/Creatinine Ratio % Glucose (75-100) mg/dL Calcium (8.4-10.2) mg/dL Total Bilirubin (0.1-1.2) mg/dL AST (5-40) units/L ALT (7-56) units/L Alkaline Phosphatase (35-129) units/L Total Protein (6.3-8.2) g/dL Albumin (3.9-5) g/dL Albumin/Globulin Ratio % Lipase 18 (13-60) units/L Urine Color (Yellow) Urine Turbidity (Clear) Urine pH (5.0-7.0) Ur Specific [place] (1.003-1.030) Urine Protein (Negative) mg/dL Urine Glucose (UA) (Negative) mg/dL Urine Ketones (Negative) mg/dL Urine Blood (Negative) Urine Nitrite (Negative) Ur Reducing Substances Urine Bilirubin (Negative) Urine Ictotest Urine Urobilinogen (<2.0) mg/dL Ur Leukocyte Esterase (Negative) Urine WBC (Auto) (0.0-6.0) /HPF Urine RBC (Auto) (0.0-6.0) /HPF U Epithel Cells (Auto) (0-13.0) /HPF Urine Mucus /HPF Vital Signs 09/05/21 00:00 Temperature 98.5 F Pulse Rate 71 Respiratory 18 Rate Blood Pressure 130/90 [Left] O2 Sat by Pulse 100 Oximetry labs noted--inc lft and tbili which is new pt again denies drugs/cig/thc; only occ. etoh use; denies DM U/A noted CT noted US noted hep panel pending 2 LNS/zosyn/cefepime/zofran and morphine for pain only got some mild temporary relief from morphine Pt remains NPO staffed with Dr Garcia- CT reviewed- not concerned for appendicitis; pt has no RLQ pain but he will need serial abd exams 1042 Dr Turner phoned- in meeeting will call me back [address] Turner and Dr Price (GI) Dr Price will follow- admit/serial abd exams INR Q6H DOPPLER US HEP/PORTAL VEIN STAT HIDA IF PT DEVELOPS RUQ PAIN recommended labs ordered and are pending IGG/LDH/TYLENOL/ETOH/CMV/HSV - ALL ORDERED AND PENDING Dr Turner will see and evaluate pt Pt updated; nursing staff aware of admit status. - Differential Diagnosis Rule out cholecystitis, appendicitis, pancreatitis Critical care attestation.: If time is entered above; I have spent that time in minutes in the direct care of this critically ill patient, excluding procedure time. ED Disposition Clinical Impression: Abdominal pain Qualifiers: Abdominal location: left upper quadrant Qualified Code(s): R10.12 - Left upper quadrant pain Disposition: ADMITTED INPATIENT Is pt being admited?: Yes Does the pt Need Aspirin: No Condition: Stable Referrals: PRIMARY CARE, [Primary Care Provider] - 3-5 Days Time of Disposition: 15:11
[2021-09-05 09:06] LABS: Mucus,Urine 2+ /HPF
[2021-09-05] MEDS: MORPHINE 2 MG/1 ML INJ IV PRN ×2 (09:16→23:44)
[2021-09-05 09:37] LABS: Bilirubin,Urine Color Interference (Negative); Blood,Urine Trace (Negative); Color,Urine Dark Yellow (Yellow); PH,Urine 6.5 (5.0-7.0)
[2021-09-05 09:38] LABS: Urobilinogen,Urine < 2.0 mg/dL (<2.0)
--- NOTE | 2021-09-05 10:25 | Ultrasound Report ---
ULTRASOUND ABDOMEN, LIMITED INDICATION / CLINICAL INFORMATION: ABD PAIN; TRANSAMINITIS. COMPARISON: CT scan dated 09/05/2021 FINDINGS: PANCREAS: Visualized portion shows no significant abnormality. Body and tail are obscured by bowel ga s. LIVER: No significant abnormality. Normal hepatopedal blood flow in the main portal vein. GALLBLADDER: No significant abnormality. BILE DUCTS: No significant abnormality. Common bile duct measures 2 mm. FREE FLUID: None. ADDITIONAL FINDINGS: None. IMPRESSION: 1. No significant sonographic abnormality of the right upper quadrant. Signer Name: José Miguel Kelly MD Signed: 09/05/2021 10:20 AM Workstation Name: [id number]
[2021-09-05 10:49] LABS: INR 0.87 (0.87-1.13)
--- NOTE | 2021-09-05 14:18 | History and Physical Report ---
History of Present Illness Chief complaint: I feel sick History of present illness: 31 YO Male with Nicotine Dependence, Crohns Disease, ETOH Dependence, Asthma, Seasonal Allergies presents to ED for evaluation. Patient reports "my stomach hurts". Pt states that he has experienced abdominal pain, nausea, nausea, mul tiple episodes of vomiting, inability to tolerate oral diet over the past 3 days with persistent symptoms over the same timeframe. Patient states his abdominal pain is diffuse, constant, without exacerbating or alleviating factors. Patient transported to [facility] via private vehicle for further care and evaluation of the aforementioned symptoms. The patient was seen and evaluated in the emergency department. All lab and imaging studies reviewed. Patient found to have obstructive jaundice, intractable nausea and vomiting. Patient admitted to medical floor due to increased risk of worsening symptoms and for medical stabilization. GI team consulted in ED. Patient denies fever, chills, chest p ain, palpitation, adductive cough, skin rash or recent contact, known exposure to COVID-19, ingestion of food/water from new or different sources. Prior admission on 12/07/2018 reviewed. All medication listed at time of admission has been reconciled. Advanced care planning conducted in ED. Past History Past Medical History: other (See HPI) Past Surgical History: No surgical history, Other (Reviewed) Social history: smoking, alcohol abuse Family history: no significant family history, other (Reviewed) Medications and Allergies Allergies Allergy/AdvReac Type Severity Reaction Status Date / Time blueberry [Blueberry] Allergy Hives Verified 09/05/21 00:02 mushroom Allergy Hives Verified 09/05/21 00:02 pineapple [Pineapple] Allergy Hives Verified 09/05/21 00:02 raspberry [Raspberry] Allergy Hives Verified 09/05/21 00:02 Active Meds: Active Medications Morphine Sulfate (Morphine 2 Mg/1 Ml Inj) 2 mg IV Q4H PRN PRN Reason: Pain, Moderate (4-6) Last Admin: 09/05/21 09:16 Dose: 2 mg Review of Systems Constitutional: weakness, no weight gain, no fever, no chills Ears, nose, mouth and throat: no ear pain, no tinnitis, no decreased hearing Cardiovascular: no chest pain, no orthopnea, no palpitations, no edema, no syncope Respiratory: no cough, no excessive sputum Gastrointestinal: abdominal pain, nausea, vomiting, no hematemesis, no coffee ground emesis, no melena, no hematochezia, no loss of appetite Genitourinary Male: no hematuria, no flank pain, no discharge, no urinary frequency, no urinary hesitancy Rectal: no pain, no incontinence, no bleeding Musculoskeletal: no neck stiffness, no shooting arm pain, no arm numbness/tingling, no shooting leg pain, no leg numbness/tingling Integumentary: no rash, no pruritis, no redness, no wounds Neurological: no head injury, no transient paralysis, no weakness, no parathesias, no tingling, no seizures, no tremors Psychiatric: no anxiety, no change in sleep habits, no insomnia, no change in appetite, no change in libido Endocrine: no cold intolerance, no heat intolerance, no polyuria, no excessive sweating Hematologic/Lymphatic: no easy bruising, no easy bleeding Allergic/Immunologic: no urticaria, no wheezing, no persistent infections Exam - Constitutional Vitals: Temp Pulse Resp BP Pulse Ox 98.5 F 71 18 130/90 100 09/05/21 00:00 09/05/21 00:00 09/05/21 00:00 09/05/21 00:00 09/05/21 00:00 General appearance: Present: mild distress, obese - EENT Eyes: Present: PERRL, scleral icterus ENT: hearing intact, clear oral mucosa - Neck Neck: Present: supple, normal ROM - Respiratory Respiratory effort: normal Respiratory: bilateral: CTA - Cardiovascular Heart Sounds: Present: S1 & S2. Absent: rub, click - Extremities Extremities: pulses symmetrical, No edema Peripheral Pulses: within normal limits - Abdominal General gastrointestinal: Present: soft, normal bowel sounds Male genitourinary: Present: normal - Integumentary Integumentary: Present: clear, warm, dry - Musculoskeletal Musculoskeletal: gait normal, strength equal bilaterally - Psychiatric Psychiatric: appropriate mood/affect, intact judgment & insight - Neurologic Neurologic: CNII-XII intact, moves all extremities Results - Labs CBC & Chem 7: 09/05/21 14:24 09/05/21 01:00 Labs: Abnormal lab results 09/05/21 09/05/21 Range/Units 01:00 06:42 RBC 6.85 H (3.65-5.03) M/mm3 Hgb 16.1 H (11.8-15.2) gm/dl Hct 48.6 H (35.5-45.6) % MCV 71 L (84-94) fl MCH 24 L (28-32) pg RDW 15.7 H (13.2-15.2) % Sodium 135 L (137-145) mmol/L BUN 8 L (9-20) mg/dL Total Bilirubin 6.30 H (0.1-1.2) mg/dL AST 1431 H (5-40) units/L ALT 2119 H (7-56) units/L Alkaline Phosphatase 337 H (35-129) units/L Assessment and Plan - Patient Problems (1) Obstructive jaundice Current Visit: Yes Status: Acute Plan to address problem: GI team consulted, hepatitis panel, further care and evaluation as per GI team, inflammatory markers ordered as per GI team, fractionated bilirubin, further care and evaluation as per GI team. (2) Nicotine dependence Current Visit: Yes Status: Acute Qualifiers: Nicotine product type: cigarettes Substance use status: in withdrawal Qualified Code(s): F17.213 - Nicotine dependence, cigarettes, with withdrawal Plan to address problem: Smoking cessation counseling, supportive care, behavior change counseling, +30 minutes. (3) Alcohol dependence Current Visit: Yes Status: Acute Qualifiers: Substance use status: uncomplicated Qualified Code(s): F10.20 - Alcohol dependence, uncomplicated Plan to address problem: Thiamine, folic acid, multivitamin daily, CIWA protocol, banana bag. (4) Obesity (BMI 30.0-34.9) Current Visit: Yes Status: Acute Plan to address problem: Balanced diet, increase physical activity discharge, low-cholesterol diet. Risk factor reduction. (5) DVT prophylaxis Current Visit: Yes Status: Acute Plan to address problem: SCDs bilateral lower extremities while in bed (6) Advance care planning Current Visit: Yes Status: Acute Plan to address problem: Disease education data, care plan discussed, diagnosis discussed, prognosis discussed, patient is full code. Patient acknowledges understanding and agreement with care plan, +30 minutes. (7) Preventative health care Current Visit: Yes Status: Acute Plan to address problem: Patient counseled regarding balanced diet, increase physical activity discharge, outpatient follow-up with primary care physician for all age and risk factor related screening test. +30 minutes.
[2021-09-05] MEDS ORDERED: ONDANSETRON 4 MG/2 ML INJ IV PRN (14:27)
[2021-09-05] MEDS ORDERED: HYDROmorphone 0.5 MG/0.5 ML INJ IV PRN (14:27)
[2021-09-05] MEDS ORDERED: IBUPROFEN 600 MG TAB PO PRN (14:27)
[2021-09-05] MEDS ORDERED: oxyCODONE /ACETAMINOPHEN 5-325MG TAB PO PRN (14:27)
[2021-09-05 14:49] LABS: Basophils % (Auto) 0.4 % (0.0-1.8); Eosinophils # (Auto) 0.1 K/mm3 (0.0-0.4); Eosinophils % (Auto) 0.8 % (0.0-4.3); Hematocrit 45.8 % (35.5-45.6); Hemoglobin 14.9 gm/dl (11.8-15.2); Lymphocytes # (Auto) 1.7 K/mm3 (1.2-5.4); Lymphocytes % (Auto) 25.3 % (13.4-35.0); Mean Corpuscular HGB Conc 33 % (32-34); Mean Corpuscular Volume 72 fl (84-94); Monocytes # (Auto) 0.9 K/mm3 (0.0-0.8); Monocytes % (Auto) 12.9 % (0.0-7.3); Platelet Count 189 K/mm3 (140-440); Red Cell Distribution Width 15.3 % (13.2-15.2)
--- NOTE | 2021-09-05 15:54 | Vascular Lab Report ---
VL AORTA/IVC/ILIAC DUPLEX LIMITED HISTORY: Abdominal pain, elevated LFTs TECHNIQUE: Transabdominal imaging with color and spectral Doppler imaging. FINDINGS: The IVC, portal veins and hepatic veins were imaged and demonstrate patency and normal direction of b lood flow and normal velocities. No thrombosis or occlusion. The hepatic artery is patent with peak s ystolic velocity measuring 49 cm/s. IMPRESSION: No vascular abnormality identified. Signer Name: Galindo Yee Jr, MD Signed: 09/05/2021 3:50 PM Workstation Name: [id number]
[2021-09-05 17:20] LABS: Hepatitis B Surface Antigen Non-Reactive (Negative); Hepatitis C Virus Antibody Non-Reactive (NonReactive)
[2021-09-05] MEDS ORDERED: THIAMINE 100 MG, FOLIC ACID 1 MG, MULTIPLE VITAMIN INJ, ADULT 10 ML in SODIUM CHLORIDE ... IV ONE (17:20)
[2021-09-05 17:31] LABS: Bilirubin,Direct 5.7 mg/dL (0-0.2)
[2021-09-06 05:49] LABS: Amphetamine Screen,Urine Negative; Benzodiazepines Screen,Urine Negative; Cocaine Screen,Urine Negative; Methadone Screen,Urine Negative; Opiate Screen,Urine Negative
[2021-09-06 06:08] LABS: Cannabinoid Screen,Urine Positive
[2021-09-06 06:14] LABS: Albumin 3.3 g/dL (3.9-5); Blood Urea Nitrogen 6 mg/dL (9-20); Calcium 8.5 mg/dL (8.4-10.2); Hemolysis Index 1
[2021-09-06 06:18] LABS: BUN/Creatinine Ratio 9
[2021-09-06 06:29] LABS: Alanine Aminotransferase 1832 units/L (7-56)
--- NOTE | 2021-09-06 07:37 | Gastroenterology Consultation ---
History of Present Illness - Reason for Consult Consult date: 09/06/21 abd pain, jaundice Requesting physician: DONALD SHEIKH - History of Present Illness 31 YO Male with Nicotine Dependence, ETOH Dependence, Asthma, Seasonal Allergies presents for abd pain; abdominal pain, nausea, nausea, multiple episodes of vomiting, inability to tolerate oral diet over the past 3 days pain is diffuse, constant, without exacerbating or alleviating factors. Patient denies any new medications. Denies any excessive alcohol use. Denies any intravenous drug use. Denies any new herbal medication or [id number] medication current home medications obtained, updated, and reviewed Past History Past Medical History: other (See HPI) Past Surgical History: No surgical history, Other (Reviewed) Social history: smoking, alcohol abuse Family history: no significant family history, other (Reviewed) Medications and Allergies Allergies Allergy/AdvReac Type Severity Reaction Status Date / Time blueberry [Blueberry] Allergy Hives Verified 09/05/21 00:02 mushroom Allergy Hives Verified 09/05/21 00:02 pineapple [Pineapple] Allergy Hives Verified 09/05/21 00:02 raspberry [Raspberry] Allergy Hives Verified 09/05/21 00:02 Active Meds: Active Medications Folic Acid (Folic Acid 1 Mg Tab) 1 mg PO QDAY [facility] Hydromorphone HCl (Hydromorphone 0.5 Mg/0.5 Ml Inj) 0.5 mg IV Q13H PRN PRN Reason: Pain , Severe (7-10) Ibuprofen (Ibuprofen 600 Mg Tab) 600 mg PO Q6H PRN PRN Reason: Pain, Mild (1-3) Morphine Sulfate (Morphine 2 Mg/1 Ml Inj) 2 mg IV Q4H PRN PRN Reason: Pain, Moderate (4-6) Last Admin: 09/05/21 23:44 Dose: 2 mg Multivitamins (Multivitamins ,Therapeutic Tab) 1 each PO QDAY [facility] Ondansetron HCl (Ondansetron 4 Mg/2 Ml Inj) 4 mg IV Q8H PRN PRN Reason: Nausea And Vomiting Oxycodone/Acetaminophen (Oxycodone /Acetaminophen 5-325mg Tab) 1 tab PO Q26H PRN PRN Reason: Pain, Moderate (4-6) Sodium Chloride (Sodium Chloride 0.9% 10 Ml Flush Syringe) 10 ml IV BID FRANCO Sodium Chloride (Sodium Chloride 0.9% 10 Ml Flush Syringe) 10 ml IV PRN PRN PRN Reason: LINE FLUSH Thiamine HCl (Thiamine 100 Mg Tab) 100 mg PO QDAY [facility] Review of Systems - Review of Systems All systems: negative (10 systems reviewed and negative except as mentioned above in the history present illness) Exam - Constitutional Vital Signs: Temp Pulse Resp BP Pulse Ox 98.5 F 74 18 146/92 100 09/05/21 00:00 09/06/21 01:24 09/06/21 01:43 09/06/21 01:43 09/06/21 02:00 General appearance: no acute distress - EENT Eyes: scleral icterus - Neck Neck: supple - Respiratory Respiratory effort: normal - Cardiovascular Rhythm: regular - Gastrointestinal General gastrointestinal: Present: soft, non-tender (pt reported his stomach hurts, but did not have TTP) - Integumentary Integumentary: Present: dry - Musculoskeletal Musculoskeletal: normal - Neurologic Neurological: alert and oriented x3 - Psychiatric Psychiatric: appropriate mood/affect - Labs CBC & Chem 7: 09/05/21 14:24 09/06/21 05:06 Lab Results: Laboratory Results - last 24 hr 09/05/21 09/05/21 09/05/21 06:25 06:42 06:42 WBC 6.8 RBC 6.85 H Hgb 16.1 H Hct 48.6 H MCV 71 L MCH 24 L MCHC 33 RDW 15.7 H Plt Count 206 Lymph % (Auto) [place] % (Auto) Eos % (Auto) Baso % (Auto) Lymph # (Auto) [place] # (Auto) Eos # (Auto) Baso # (Auto) Seg Neutrophils % Seg Neutrophils # PT INR Sodium Potassium Chloride Carbon Dioxide Anion Gap BUN Creatinine Estimated GFR BUN/Creatinine Ratio Glucose Lactic Acid Calcium Total Bilirubin Direct Bilirubin Indirect Bilirubin AST ALT Alkaline Phosphatase Lactate Dehydrogenase Total Protein Albumin Albumin/Globulin Ratio Lipase 18 Urine Color Dark yellow Urine Turbidity Clear Urine pH 6.5 Ur Specific [place] 1.025 Urine Protein 100 mg/dl Urine Glucose (UA) Cl Urine Ketones Trace Urine Blood Trace Urine Nitrite Negative Ur Reducing Substances Not Reportable Urine Bilirubin Color interference Urine Ictotest Not Reportable Urine Urobilinogen < 2.0 Ur Leukocyte Esterase Negative Urine WBC (Auto) 2.0 Urine RBC (Auto) 2.0 U Epithel Cells (Auto) < 1.0 Urine Mucus 2+ Urine Opiates Screen Urine Methadone Screen Acetaminophen Ur Barbiturates Screen Ur Phencyclidine Scrn Ur Amphetamines Screen U Benzodiazepines Scrn Urine Cocaine Screen U Marijuana (THC) Screen Drugs of Abuse Note Plasma/Serum Alcohol Hepatitis A IgM Ab Hep Bs Antigen Hep B Core IgM Ab Hepatitis C Antibody HIV 1&2 Antibody Rapid HIV P24 Antigen 09/05/21 09/05/21 09/05/21 09:18 09:18 10:12 WBC RBC Hgb Hct MCV MCH MCHC RDW Plt Count Lymph % (Auto) [place] % (Auto) Eos % (Auto) Baso % (Auto) Lymph # (Auto) [place] # (Auto) Eos # (Auto) Baso # (Auto) Seg Neutrophils % Seg Neutrophils # PT 13.0 INR 0.87 Sodium Potassium Chloride Carbon Dioxide Anion Gap BUN Creatinine Estimated GFR BUN/Creatinine Ratio Glucose Lactic Acid 1.00 Calcium Total Bilirubin Direct Bilirubin Indirect Bilirubin AST ALT Alkaline Phosphatase Lactate Dehydrogenase Total Protein Albumin Albumin/Globulin Ratio Lipase Urine Color Urine Turbidity Urine pH Ur Specific [place] Urine Protein Urine Glucose (UA) Urine Ketones Urine Blood Urine Nitrite Ur Reducing Substances Urine Bilirubin Urine Ictotest Urine Urobilinogen Ur Leukocyte Esterase Urine WBC (Auto) Urine RBC (Auto) U Epithel Cells (Auto) Urine Mucus Urine Opiates Screen Urine Methadone Screen Acetaminophen Ur Barbiturates Screen Ur Phencyclidine Scrn Ur Amphetamines Screen U Benzodiazepines Scrn Urine Cocaine Screen U Marijuana (THC) Screen Drugs of Abuse Note Plasma/Serum Alcohol Hepatitis A IgM Ab Reactive A Hep Bs Antigen Non-reactive Hep B Core IgM Ab Non-reactive Hepatitis C Antibody Non-reactive HIV 1&2 Antibody Rapid HIV P24 Antigen 09/05/21 09/05/21 09/05/21 14:24 14:24 14:24 WBC 6.9 RBC 6.40 H Hgb 14.9 Hct 45.8 H MCV 72 L MCH 23 L MCHC 33 RDW 15.3 H Plt Count 189 Lymph % (Auto) 25.3 [place] % (Auto) 12.9 H Eos % (Auto) 0.8 Baso % (Auto) 0.4 Lymph # (Auto) 1.7 [place] # (Auto) 0.9 H Eos # (Auto) 0.1 Baso # (Auto) 0.0 Seg Neutrophils % 60.6 Seg Neutrophils # 4.2 PT INR Sodium Potassium Chloride Carbon Dioxide Anion Gap BUN Creatinine Estimated GFR BUN/Creatinine Ratio Glucose Lactic Acid Calcium Total Bilirubin Direct Bilirubin Indirect Bilirubin AST ALT Alkaline Phosphatase Lactate Dehydrogenase 613 H Total Protein Albumin Albumin/Globulin Ratio Lipase Urine Color Urine Turbidity Urine pH Ur Specific [place] Urine Protein Urine Glucose (UA) Urine Ketones Urine Blood Urine Nitrite Ur Reducing Substances Urine Bilirubin Urine Ictotest Urine Urobilinogen Ur Leukocyte Esterase Urine WBC (Auto) Urine RBC (Auto) U Epithel Cells (Auto) Urine Mucus Urine Opiates Screen Urine Methadone Screen Acetaminophen 5.0 L Ur Barbiturates Screen Ur Phencyclidine Scrn Ur Amphetamines Screen U Benzodiazepines Scrn Urine Cocaine Screen U Marijuana (THC) Screen Drugs of Abuse Note Plasma/Serum Alcohol Hepatitis A IgM Ab Hep Bs Antigen Hep B Core IgM Ab Hepatitis C Antibody HIV 1&2 Antibody Rapid HIV P24 Antigen 09/05/21 09/05/21 09/05/21 14:24 14:24 Unknown WBC RBC Hgb Hct MCV MCH MCHC RDW Plt Count Lymph % (Auto) [place] % (Auto) Eos % (Auto) Baso % (Auto) Lymph # (Auto) [place] # (Auto) Eos # (Auto) Baso # (Auto) Seg Neutrophils % Seg Neutrophils # PT INR Sodium Potassium Chloride Carbon Dioxide Anion Gap BUN Creatinine Estimated GFR BUN/Creatinine Ratio Glucose Lactic Acid Calcium Total Bilirubin 7.10 H Direct Bilirubin 5.7 H Indirect Bilirubin 1.4 AST ALT Alkaline Phosphatase Lactate Dehydrogenase Total Protein Albumin Albumin/Globulin Ratio Lipase Urine Color Urine Turbidity Urine pH Ur Specific [place] Urine Protein Urine Glucose (UA) Urine Ketones Urine Blood Urine Nitrite Ur Reducing Substances Urine Bilirubin Urine Ictotest Urine Urobilinogen Ur Leukocyte Esterase Urine WBC (Auto) Urine RBC (Auto) U Epithel Cells (Auto) Urine Mucus Urine Opiates Screen Urine Methadone Screen Acetaminophen Ur Barbiturates Screen Ur Phencyclidine Scrn Ur Amphetamines Screen U Benzodiazepines Scrn Urine Cocaine Screen U Marijuana (THC) Screen Drugs of Abuse Note Plasma/Serum Alcohol < 0.01 Hepatitis A IgM Ab Hep Bs Antigen Hep B Core IgM Ab Hepatitis C Antibody HIV 1&2 Antibody Rapid Non react HIV P24 Antigen Non react 09/06/21 09/06/21 05:06 05:30 WBC RBC Hgb Hct MCV MCH MCHC RDW Plt Count Lymph % (Auto) [place] % (Auto) Eos % (Auto) Baso % (Auto) Lymph # (Auto) [place] # (Auto) Eos # (Auto) Baso # (Auto) Seg Neutrophils % Seg Neutrophils # PT INR Sodium 139 Potassium 3.8 Chloride 104.7 Carbon Dioxide 22 Anion Gap 16 BUN 6 L Creatinine 0.7 L Estimated GFR > 60 BUN/Creatinine Ratio 9 Glucose 76 Lactic Acid Calcium 8.5 Total Bilirubin 8.20 H Direct Bilirubin Indirect Bilirubin AST 1319 H ALT 1832 H Alkaline Phosphatase 253 H Lactate Dehydrogenase Total Protein 5.8 L D Albumin 3.3 L Albumin/Globulin Ratio 1.3 Lipase Urine Color Urine Turbidity Urine pH Ur Specific [place] Urine Protein Urine Glucose (UA) Urine Ketones Urine Blood Urine Nitrite Ur Reducing Substances Urine Bilirubin Urine Ictotest Urine Urobilinogen Ur Leukocyte Esterase Urine WBC (Auto) Urine RBC (Auto) U Epithel Cells (Auto) Urine Mucus Urine Opiates Screen Negative Urine Methadone Screen Negative Acetaminophen Ur Barbiturates Screen Negative Ur Phencyclidine Scrn Negative Ur Amphetamines Screen Negative U Benzodiazepines Scrn Negative Urine Cocaine Screen Negative U Marijuana (THC) Screen Positive Drugs of Abuse Note Disclamer Plasma/Serum Alcohol Hepatitis A IgM Ab Hep Bs Antigen Hep B Core IgM Ab Hepatitis C Antibody HIV 1&2 Antibody Rapid HIV P24 Antigen Assessment and Plan Patient with acute hepatitis A infection based upon labs that are back now unclear source, I will need to ask further about sexual history and lifestyle and living conditions to determine potential source of infection I recommend contact precautions (placeD) Trend LFT and INR Supportive care, if INR starts elevating will need transplant evaluation. Recommend hepatitis A immune globulin for: Close personal contacts including H ousehold and sexual contacts of the patient (and Individuals who have shared illicit drug, though the patient denied this) Patient may be on diet Avoid hepatotoxic meds - Patient Problems (1) Acute hepatitis A virus infection Current Visit: Yes Status: Acute (2) Elevated liver enzymes Current Visit: Yes Status: Acute (3) Abdominal pain Current Visit: Yes Status: Acute Qualifiers: Abdominal location: left upper quadrant Qualified Code(s): R10.12 - Left upper quadrant pain (4) Alcohol dependence Current Visit: Yes Status: Acute Qualifiers: Substance use status: uncomplicated Qualified Code(s): F10.20 - Alcohol dependence, uncomplicated
--- NOTE | 2021-09-06 10:29 | Progress Note ---
Assessment and Plan Assessment and plan: 31 YO Male with Nicotine Dependence, ETOH Dependence, Asthma, Seasonal Allergies presents for abd pain; abdominal pain, nausea, nausea, multiple episodes of vomiting, inability to tolerate oral diet over the past 3 days pain is diffuse, constant, without exacerbating or alleviating factors. Acute Hepatitis A infection Elevated LFTs Abdominal pain EtOH dependence 09/06/2021. GI recommends contact precautions. We will trend LFTs and INR. Also, recommendations for hepatitis A immune globulin for: Close personal contacts including Household and sexual contacts of the patient (and Individuals who have shared illicit drug, though the patient denied this). ID consultation History Interval history: No new issues overnight Hospitalist Physical - Constitutional Vitals: Temp Pulse Resp BP Pulse Ox 98.5 F 74 18 146/92 100 09/05/21 00:00 09/06/21 01:24 09/06/21 01:43 09/06/21 01:43 09/06/21 02:00 General appearance: Present: mild distress, obese - EENT Eyes: Present: PERRL, EOM intact ENT: hearing intact, clear oral mucosa, dentition normal - Neck Neck: Present: supple, normal ROM - Respiratory Respiratory effort: normal Respiratory: bilateral: CTA - Cardiovascular Rhythm: regular Heart Sounds: Present: S1 & S2. Absent: gallop, rub - Extremities Extremities: no ischemia, No edema, Full ROM - Abdominal General gastrointestinal: soft, non-tender, non-distended, normal bowel sounds - Integumentary Integumentary: Present: clear, warm, dry - Neurologic Neurologic: CNII-XII intact, moves all extremities Results - Labs CBC & Chem 7: 09/05/21 14:24 09/06/21 05:06 Labs: Laboratory Last Values WBC 6.9 K/mm3 (4.5-11.0) 09/05/21 14:24 RBC 6.40 M/mm3 (3.65-5.03) H 09/05/21 14:24 Hgb 14.9 gm/dl (11.8-15.2) 09/05/21 14:24 Hct 45.8 % (35.5-45.6) H 09/05/21 14:24 MCV 72 fl (84-94) L 09/05/21 14:24 MCH 23 pg (28-32) L 09/05/21 14:24 MCHC 33 % (32-34) 09/05/21 14:24 RDW 15.3 % (13.2-15.2) H 09/05/21 14:24 Plt Count 189 K/mm3 (140-440) 09/05/21 14:24 Lymph % (Auto) 25.3 % (13.4-35.0) 09/05/21 14:24 [place] % (Auto) 12.9 % (0.0-7.3) H 09/05/21 14:24 Eos % (Auto) 0.8 % (0.0-4.3) 09/05/21 14:24 Baso % (Auto) 0.4 % (0.0-1.8) 09/05/21 14:24 Lymph # (Auto) 1.7 K/mm3 (1.2-5.4) 09/05/21 14:24 [place] # (Auto) 0.9 K/mm3 (0.0-0.8) H 09/05/21 14:24 Eos # (Auto) 0.1 K/mm3 (0.0-0.4) 09/05/21 14:24 Baso # (Auto) 0.0 K/mm3 (0.0-0.1) 09/05/21 14:24 Seg Neutrophils % 60.6 % (40.0-70.0) 09/05/21 14:24 Seg Neutrophils # 4.2 K/mm3 (1.8-7.7) 09/05/21 14:24 PT 13.0 Sec. (12.2-14.9) 09/05/21 10:12 INR 0.87 (0.87-1.13) 09/05/21 10:12 Sodium 139 mmol/L (137-145) 09/06/21 05:06 Potassium 3.8 mmol/L (3.6-5.0) 09/06/21 05:06 Chloride 104.7 mmol/L (98-107) 09/06/21 05:06 Carbon Dioxide 22 mmol/L (22-30) 09/06/21 05:06 Anion Gap 16 mmol/L 09/06/21 05:06 BUN 6 mg/dL (9-20) L 09/06/21 05:06 Creatinine 0.7 mg/dL (0.8-1.3) L 09/06/21 05:06 Estimated GFR > 60 ml/min 09/06/21 05:06 BUN/Creatinine Ratio 9 % 09/06/21 05:06 Glucose 76 mg/dL (75-100) 09/06/21 05:06 Lactic Acid 1.00 mmol/L (0.7-2.0) 09/05/21 09:18 Calcium 8.5 mg/dL (8.4-10.2) 09/06/21 05:06 Total Bilirubin 8.20 mg/dL (0.1-1.2) H 09/06/21 05:06 Direct Bilirubin 5.7 mg/dL (0-0.2) H 09/05/21 Unknown Indirect Bilirubin 1.4 mg/dL 09/05/21 Unknown AST 1319 units/L (5-40) H 09/06/21 05:06 ALT 1832 units/L (7-56) H 09/06/21 05:06 Alkaline Phosphatase 253 units/L (35-129) H 09/06/21 05:06 Lactate Dehydrogenase 613 units/L (91-180) H 09/05/21 14:24 Total Protein 5.8 g/dL (6.3-8.2) L D 09/06/21 05:06 Albumin 3.3 g/dL (3.9-5) L 09/06/21 05:06 Albumin/Globulin Ratio 1.3 % 09/06/21 05:06 Lipase 18 units/L (13-60) 09/05/21 06:42 Urine Color Dark yellow (Yellow) 09/05/21 06:25 Urine Turbidity Clear (Clear) 09/05/21 06:25 Urine pH 6.5 (5.0-7.0) 09/05/21 06:25 Ur Specific [place] 1.025 (1.003-1.030) 09/05/21 06:25 Urine Protein 100 mg/dl mg/dL (Negative) 09/05/21 06:25 Urine Glucose (UA) Cl mg/dL (Negative) 09/05/21 06:25 Urine Ketones Trace mg/dL (Negative) 09/05/21 06:25 Urine Blood Trace (Negative) 09/05/21 06:25 Urine Nitrite Negative (Negative) 09/05/21 06:25 Ur Reducing Substances Not Reportable 09/05/21 06:25 Urine Bilirubin Color interference (Negative) 09/05/21 06:25 Urine Ictotest Not Reportable 09/05/21 06:25 Urine Urobilinogen < 2.0 mg/dL (<2.0) 09/05/21 06:25 Ur Leukocyte Esterase Negative (Negative) 09/05/21 06:25 Urine WBC (Auto) 2.0 /HPF (0.0-6.0) 09/05/21 06:25 Urine RBC (Auto) 2.0 /HPF (0.0-6.0) 09/05/21 06:25 U Epithel Cells (Auto) < 1.0 /HPF (0-13.0) 09/05/21 06:25 Urine Mucus 2+ /HPF 09/05/21 06:25 Urine Opiates Screen Negative 09/06/21 05:30 Urine Methadone Screen Negative 09/06/21 05:30 Acetaminophen 5.0 ug/mL (10.0-30.0) L 09/05/21 14:24 Ur Barbiturates Screen Negative 09/06/21 05:30 Ur Phencyclidine Scrn Negative 09/06/21 05:30 Ur Amphetamines Screen Negative 09/06/21 05:30 U Benzodiazepines Scrn Negative 09/06/21 05:30 Urine Cocaine Screen Negative 09/06/21 05:30 U Marijuana (THC) Screen Positive 09/06/21 05:30 Drugs of Abuse Note Disclamer 09/06/21 05:30 Plasma/Serum Alcohol < 0.01 % (0-0.07) 09/05/21 14:24 Hepatitis A IgM Ab Reactive (NonReactive) A 09/05/21 09:18 Hep Bs Antigen Non-reactive (Negative) 09/05/21 09:18 Hep B Core IgM Ab Non-reactive (NonReactive) 09/05/21 09:18 Hepatitis C Antibody Non-reactive (NonReactive) 09/05/21 09:18 HIV 1&2 Antibody Rapid Non react (Non React) 09/05/21 14:24 HIV P24 Antigen Non react (Non React) 09/05/21 14:24 Microbiology: Microbiology 09/05/21 09:18 Peripheral/Venous Blood Culture - Preliminary Culture in Progress 09/05/21 09:18 Peripheral/Venous Blood Culture - Preliminary Culture in Progress Active Medications - Current Medications Current Medications: Generic Name Dose Route Start Last Admin Trade Name Freq PRN Reason Stop Dose Admin Folic Acid 1 mg 09/06/21 10:00 Folic Acid 1 Mg Tab PO QDAY [facility] Hydromorphone HCl 0.5 mg 09/05/21 14:27 Hydromorphone 0.5 Mg/0.5 Ml Inj IV Q13H PRN Pain , Severe (7-10) Ibuprofen 600 mg 09/05/21 14:27 Ibuprofen 600 Mg Tab PO Q6H PRN Pain, Mild (1-3) Morphine Sulfate 2 mg 09/05/21 08:15 09/05/21 23:44 Morphine 2 Mg/1 Ml Inj IV 2 mg Q4H PRN Administration Pain, Moderate (4-6) Multivitamins 1 each 09/06/21 10:00 Multivitamins ,Therapeutic Tab PO QDAY [facility] Ondansetron HCl 4 mg 09/05/21 14:27 Ondansetron 4 Mg/2 Ml Inj IV Q8H PRN Nausea And Vomiting Sodium Chloride 10 ml 09/05/21 22:00 Sodium Chloride 0.9% 10 Ml Flush Syringe IV BID FRANCO Sodium Chloride 10 ml 09/05/21 14:27 Sodium Chloride 0.9% 10 Ml Flush Syringe IV PRN PRN LINE FLUSH Thiamine HCl 100 mg 09/06/21 10:00 Thiamine 100 Mg Tab PO QDAY [facility]
[2021-09-06] MEDS: THIAMINE 100 MG TAB PO SCH (10:45)
[2021-09-06] MEDS: MULTIVITAMINS ,THERAPEUTIC TAB PO SCH (10:45)
[2021-09-06] MEDS: FOLIC ACID 1 MG TAB PO SCH (10:50)
[2021-09-06 11:27] LABS: Albumin 3.2 g/dL (3.9-5); Bilirubin,Direct 6.1 mg/dL (0-0.2)
--- NOTE | 2021-09-06 14:54 | Consultation ---
History of Present Illness - Reason for Consult Consult date: 09/06/21 Hepatitis A Requesting physician: PEDRO ESPANA - History of Present Illness The patient is a 31-year-old male admitted to the hospital with nausea, vomiting, weakness. Upon evaluation in the hospital, labs were concerning for significant transaminitis, elevated bilirubin. Tested positive for hepatitis A. ID was consulted for additional evaluation. Review of Systems: As per HPI Past History Past Medical History: other (See HPI) Past Surgical History: No surgical history, Other (Reviewed) Social history: smoking, alcohol abuse Family history: no significant family history, other (Reviewed) Medications and Allergies Allergies Allergy/AdvReac Type Severity Reaction Status Date / Time blueberry [Blueberry] Allergy Hives Verified 09/05/21 00:02 mushroom Allergy Hives Verified 09/05/21 00:02 pineapple [Pineapple] Allergy Hives Verified 09/05/21 00:02 raspberry [Raspberry] Allergy Hives Verified 09/05/21 00:02 Active Meds: Active Medications Folic Acid (Folic Acid 1 Mg Tab) 1 mg PO QDAY [facility] Last Admin: 09/06/21 10:50 Dose: 1 mg Hydromorphone HCl (Hydromorphone 0.5 Mg/0.5 Ml Inj) 0.5 mg IV Q13H PRN PRN Reason: Pain , Severe (7-10) Ibuprofen (Ibuprofen 600 Mg Tab) 600 mg PO Q6H PRN PRN Reason: Pain, Mild (1-3) Morphine Sulfate (Morphine 2 Mg/1 Ml Inj) 2 mg IV Q4H PRN PRN Reason: Pain, Moderate (4-6) Last Admin: 09/05/21 23:44 Dose: 2 mg Multivitamins (Multivitamins ,Therapeutic Tab) 1 each PO QDAY [facility] Last Admin: 09/06/21 10:45 Dose: 1 each Ondansetron HCl (Ondansetron 4 Mg/2 Ml Inj) 4 mg IV Q8H PRN PRN Reason: Nausea And Vomiting Sodium Chloride (Sodium Chloride 0.9% 10 Ml Flush Syringe) 10 ml IV BID [facility] Last Admin: 09/06/21 10:46 Dose: 10 ml Sodium Chloride (Sodium Chloride 0.9% 10 Ml Flush Syringe) 10 ml IV PRN PRN PRN Reason: LINE FLUSH Thiamine HCl (Thiamine 100 Mg Tab) 100 mg PO QDAY [facility]AN[facility] Last Admin: 09/06/21 10:45 Dose: 100 mg Physical Examination - Physical Exam Narrative exam: Physical Exam: Constitutional: Alert, cooperative. No acute distress Head, Ears, Nose: Normocephalic, atraumatic. External ears, nose normal Eyes: Conjunctivae/corneas clear. + icterus. No ptosis. Neck: Supple, no meningeal signs Cardiovascular: S1, S2 + Respiratory: Good air entry, clear to auscultation bilaterally GI: Soft, non-tender; bowel sounds normal. No peritoneal signs Musculoskeletal: No pedal edema, no cyanosis. Skin: No rash or abscess Hem/Lymphatic: No palpable cervical or supraclavicular nodes. No lymphangitis Psych: Mood ok. Affect normal Neurological: Awake, alert, oriented. No gross abnormality - Constitutional Vitals: Vital Signs Temp Pulse Resp BP Pulse Ox 98.5 F 74 18 146/92 100 09/05/21 00:00 09/06/21 01:24 09/06/21 01:43 09/06/21 01:43 09/06/21 02:00 Results - Labs CBC & Chem 7: 09/05/21 14:24 09/06/21 05:06 Labs: Abnormal lab results 09/05/21 09/05/21 09/05/21 Range/Units 09:18 14:24 14:24 RBC 6.40 H (3.65-5.03) M/mm3 Hct 45.8 H (35.5-45.6) % MCV 72 L (84-94) fl MCH 23 L (28-32) pg RDW 15.3 H (13.2-15.2) % [place] % (Auto) 12.9 H (0.0-7.3) % [place] # (Auto) 0.9 H (0.0-0.8) K/mm3 BUN (9-20) mg/dL Creatinine (0.8-1.3) mg/dL Total Bilirubin (0.1-1.2) mg/dL Direct Bilirubin (0-0.2) mg/dL AST (5-40) units/L ALT (7-56) units/L Alkaline Phosphatase (35-129) units/L Lactate Dehydrogenase 613 H (91-180) units/L Total Protein (6.3-8.2) g/dL Albumin (3.9-5) g/dL Acetaminophen (10.0-30.0) ug/mL Hepatitis A IgM Ab Reactive A (NonReactive) 09/05/21 09/05/21 09/06/21 Range/Units 14:24 Unknown 05:06 RBC (3.65-5.03) M/mm3 Hct (35.5-45.6) % MCV (84-94) fl MCH (28-32) pg RDW (13.2-15.2) % [place] % (Auto) (0.0-7.3) % [place] # (Auto) (0.0-0.8) K/mm3 BUN 6 L (9-20) mg/dL Creatinine 0.7 L (0.8-1.3) mg/dL Total Bilirubin 7.10 H 8.20 H (0.1-1.2) mg/dL Direct Bilirubin 5.7 H (0-0.2) mg/dL AST 1319 H (5-40) units/L ALT 1832 H (7-56) units/L Alkaline Phosphatase 253 H (35-129) units/L Lactate Dehydrogenase (91-180) units/L Total Protein 5.8 L D (6.3-8.2) g/dL Albumin 3.3 L (3.9-5) g/dL Acetaminophen 5.0 L (10.0-30.0) ug/mL Hepatitis A IgM Ab (NonReactive) 09/06/21 Range/Units 05:16 RBC (3.65-5.03) M/mm3 Hct (35.5-45.6) % MCV (84-94) fl MCH (28-32) pg RDW (13.2-15.2) % [place] % (Auto) (0.0-7.3) % [place] # (Auto) (0.0-0.8) K/mm3 BUN (9-20) mg/dL Creatinine (0.8-1.3) mg/dL Total Bilirubin 8.10 H (0.1-1.2) mg/dL Direct Bilirubin 6.1 H (0-0.2) mg/dL AST 1314 H (5-40) units/L ALT 1845 H (7-56) units/L Alkaline Phosphatase 239 H (35-129) units/L Lactate Dehydrogenase (91-180) units/L Total Protein 5.6 L (6.3-8.2) g/dL Albumin 3.2 L (3.9-5) g/dL Acetaminophen (10.0-30.0) ug/mL Hepatitis A IgM Ab (NonReactive) Assessment and Plan A/P: 31-year-old male with: #Acute hepatitis secondary to hepatitis C virus: Hepatitis A IgM positive. HIV negative. Hepatitis B and C negative. Etiology/epidemiologic risk factors are not clear, patient lives with his and 2 kids who are aged 13 and 7. No history of homelessness, denies any IVDU. Occasional marijuana smoking. No history of any international travel. Mainly eats home cooked food from his , no other known sick contacts. Occasionally they eat outside. His is not , no close family member is immunocompromised. Recs: -Hepatitis A is usually self-limiting -Discussed with infection control, lab has notified Department of Health Will sign off. Please call with questions. Rocio Gordon MD, FACP, [facility] ([facility] O: [phone] F: [phone] C: [phone]
[2021-09-06 16:46] LABS: INR 0.92 (0.87-1.13)
[2021-09-06] MEDS: MORPHINE 2 MG/1 ML INJ IV PRN (22:36)
[2021-09-07 06:44] LABS: Albumin 3.2 g/dL (3.9-5)
--- NOTE | 2021-09-07 07:42 | Gastroenterology Progress Note ---
Assessment and Plan Patient with acute hepatitis A infection based upon labs Transaminases trending down Trend LFT and INR daily. Supportive care, if INR remains normal can begin discharge planning Recommend hepatitis A immune globulin for: Close personal contacts including Household and sexual contacts of the patient (and Individuals who have shared illicit drug, though the patient denied this) Patient may be on diet Avoid hepatotoxic meds - Patient Problems (1) Acute hepatitis A virus infection Current Visit: Yes Status: Acute (2) Elevated liver enzymes Current Visit: Yes Status: Acute (3) Abdominal pain Current Visit: Yes Status: Acute Qualifiers: Abdominal location: left upper quadrant Qualified Code(s): R10.12 - Left upper quadrant pain (4) Alcohol dependence Current Visit: Yes Status: Acute Qualifiers: Substance use status: uncomplicated Qualified Code(s): F10.20 - Alcohol dependence, uncomplicated Subjective Date of service: 09/07/21 Principal diagnosis: acute hepA Interval history: patient denies new sexual partners, international travel ("I eat [place] food, haven't been to [place]"), homelessness, incarceration, etc feeling fatigued, mild abd pain Objective - Constitutional Vitals: Temp Pulse Resp BP Pulse Ox 98.6 F 64 16 113/71 100 09/06/21 16:09 09/06/21 16:09 09/06/21 16:09 09/06/21 16:09 09/06/21 23:10 General appearance: no acute distress - EENT Eyes: scleral icterus - Respiratory Respiratory effort: normal - Cardiovascular Rhythm: regular - Gastrointestinal General gastrointestinal: Present: soft, tender - Neurologic Neurological: alert and oriented x3 - Labs CBC & Chem 7: 09/05/21 14:24 09/06/21 05:06 Labs: Laboratory Results - last 24 hr 09/06/21 09/06/21 09/07/21 05:16 15:38 06:04 PT 13.6 INR 0.92 Total Bilirubin 8.10 H 9.20 H Direct Bilirubin 6.1 H 7.0 H Indirect Bilirubin 2.0 2.2 AST 1314 H 864 H ALT 1845 H 1590 H Alkaline Phosphatase 239 H 280 H Total Protein 5.6 L 6.4 Albumin 3.2 L 3.2 L Albumin/Globulin Ratio 1.3 1.0
--- NOTE | 2021-09-07 09:23 | Discharge Summary ---
Providers - Providers Date of Admission: 09/05/21 14:27 Date of discharge: 09/07/21 Attending physician: PEDRO ESPANA 09/05/21 14:13 Consult to Physician [CONS] Stat Comment: Consulting Provider: JUAQUIN CORTES Physician Instructions: Reason For Exam: INC LFT 09/06/21 10:29 Consult to Physician [CONS] Routine Comment: Consulting Provider: TABATHA HAHN Physician Instructions: Reason For Exam: Acute hepatitis A infection Primary care physician: [employer] Hospitalization Reason for admission: N/V /abd pain Condition: Stable Hospital course: 31-year-old male was admitted to the hospital with nausea, vomiting, abdominal pain and generalized weakness. Patient's initial labs on admission was concerning for elevated transaminitis. Patient has significantly elevated bilirubin. Patient underwent hepatitis panel and was found to have acute hepatitis A infection. Patient was noted to have hepatitis A IgM positive. Other serologies included negative HIV and negative hepatitis B and C. Etiology is unclear. Patient reported no history of homelessness and denied any IV drug use. No history of international travel and mainly eats cooked food at home. Patient reported that his is not and no family member is immunocompromise. ID and GI reports hepatitis A is usually self-limiting. ID discussed the case with infection control and the lab has notified Department of Health. LFTs trended downward and INR within normal range. Therefore, it is felt patient is met maximal hospital benefit and will be discharged home. GI also recommended hepatitis a immune globulin for close personal contacts including household and sexual contacts and individuals that have shared illicit drug though the patient denied. This can be followed up at the Department of Health. Dedicated discharge time 32 minutes Disposition: 01 HOME / SELF CARE / HOMELESS Final Discharge Diagnosis (Prints w/discharge instructions): Acute hepatitis A infection, nausea, vomiting, abdominal pain, elevated LFTs Core Measure Documentation - Palliative Care Palliative Care/ Comfort Measures: Not Applicable - Core Measures Any of the following diagnoses?: none Exam - Constitutional Vitals: Temp Pulse Resp BP Pulse Ox 98.6 F 64 16 113/71 100 09/06/21 16:09 09/06/21 16:09 09/06/21 16:09 09/06/21 16:09/06/21 23:10 General appearance: Present: no acute distress, well-nourished - EENT Eyes: Present: PERRL ENT: hearing intact, clear oral mucosa - Neck Neck: Present: supple, normal ROM - Respiratory Respiratory effort: normal Respiratory: bilateral: CTA - Cardiovascular Heart Sounds: Present: S1 & S2. Absent: rub, click - Extremities Extremities: pulses symmetrical, No edema Peripheral Pulses: within normal limits - Abdominal General gastrointestinal: Present: soft, non-tender, non-distended, normal bowel sounds Male genitourinary: Present: normal - Integumentary Integumentary: Present: clear, warm, dry - Musculoskeletal Musculoskeletal: gait normal, strength equal bilaterally - Psychiatric Psychiatric: appropriate mood/affect, intact judgment & insight - Neurologic Neurologic: CNII-XII intact, moves all extremities Plan Activity: advance as tolerated Weight Bearing Status: Weight Bear as Tolerated Diet: regular Additional Instructions: GI also recommended hepatitis a immune globulin for close personal contacts including household and sexual contacts and individuals that have shared illicit drug though the patient denied. This can be followed up at the Department of Health. Follow up with: HERMAN MACK MD [Primary Care Provider] - 3-5 Days JUAQUIN CORTES MD [Staff Physician] - 7 Days TABATHA HAHN MD [Staff Physician] - 7 Days
[2021-09-07] MEDS: THIAMINE 100 MG TAB PO SCH (09:43)
[2021-09-07] MEDS: MULTIVITAMINS ,THERAPEUTIC TAB PO SCH (09:43)
[2021-09-07] MEDS: FOLIC ACID 1 MG TAB PO SCH (09:43)
[2021-09-07 12:51] VITALS: BP 127/76
== END 2021-09-07 12:58 | disposition home or self-care (01) | DRG 441 ==
LOC: ED 22:29 → 3A 09-05 14:27
PROVIDERS: ADMIT Internal Medicine; ATTEND Hospitalist
DX: B15.9 Hepatitis A without hepatic coma (principal); K83.1 Obstruction of bile duct; F17.213 Nicotine dependence, cigarettes, with withdrawal; K50.90 Crohn's disease, unspecified, without complications; F10.20 Alcohol dependence, uncomplicated; E66.8 Other obesity; Z68.34 Body mass index [BMI] 34.0-34.9, adult; Z91.018 Allergy to other foods; J45.909 Unspecified asthma, uncomplicated; Y90.9 Presence of alcohol in blood, level not specified
CPT/HCPCS: 36415; 74177; 76705; 80048; 80053; 80074; 80076; 80307; 80320; 81001; 82140; 82247; 82248; 83615; 83690; 85025; 85027; 85610; 86644; 86645; 87040; 87529; 87806; 93979; G0378; J3490; J7517; G0480; J0692; J2270; J2405; J3411; J7030; Q9967